=== PATIENT | male | born 1965 | race Caucasian/White ===

== ENCOUNTER 2022-06-10 20:12 | Inpatient (IN) | payer MEDICAID, SELFPAY ==
[2022-06-10 20:27] VITALS: BMI 42.0
[2022-06-10 20:34] VITALS: BP 107/80; PULSE 120; RESP 23; TEMP 36.6; O2SAT 95
--- NOTE | 2022-06-10 20:53 | ECG_ITS ---
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 Measurements Intervals [place] Rate: 120 P: [place]: QRS: 11 QRSD: 96 T: 28 QT: 349 QTc: 494 Interpretive Statements ATRIAL FIBRILLATION WITH RAPID VENTRICULAR RESPONSE POSSIBLE ANTERIOR MYOCARDIAL INFARCTION , PROBABLY OLD [30 ms Q WAVE IN V3/V4, OR R < 0.2 mV IN V4] ABNORMAL RHYTHM ECG No previous ECG available for comparison Electronically Signed On 06-11-2022 8:54:05 CDT by Vic Thakur M.D. [email or web address] olive branch [email or web address] Corporationlouis stokes [facility].PreciouStatus/store/NU/[id number] donovan
--- NOTE | 2022-06-10 20:55 | XRR_ITS ---
PROCEDURE INFORMATION: Exam: XR Chest Exam date and time: 06/10/2022 9:00 PM Age: 56 years old Clinical indication: Shortness of breath; Additional info: Sobg TECHNIQUE: Imaging protocol: Radiologic exam of the chest. Views: 1 view. COMPARISON: No relevant prior studies available. FINDINGS: Lungs: Mild interstitial pulmonary edema with compressive atelectasis in the mid and lower lungs, worse on the right. Pleural spaces: Large right and small left pleural effusions. No pneumothorax. Heart/Mediastinum: Cardiac silhouette is moderately enlarged. Mediastinal contours are unremarkable. Bones/joints: Unremarkable for age. XR/XR chest 1V portable [id number] IMPRESSION: 1. Mild interstitial pulmonary edema with compressive atelectasis in the mid and lower lungs, worse on the right. 2. Large right and small left pleural effusions. 3. Incidental/nonacute findings are listed in the report.
--- NOTE | 2022-06-10 21:02 | ED_ITS ---
HPI - General Adult General: Chief complaint: General Medical Stated complaint: sob Time Seen by Provider: 06/10/22 20:51 Source: patient Mode of arrival: ambulatory Limitations: no limitations History of Present Illness: 56-year-old male who was recently diagnosed with congestive heart failure he states he just moved down here from [place] he was admitted there discharged on Wednesday and then moved here. He is on Lasix he believes 20 or 40 twice a day he states he had increasing shortness of br eath. He is short of breath here. Denies any chest pain or fever. He denies any vomiting states is much worse with exertion. He states he has had fluid building up on his legs. [facility] ED PFSH: Medical History (Updated 06/10/22 @ 22:34 by Diogenes Lopez MD) CHF (congestive heart failure) Social History (Updated 06/10/22 @ 21:06 by Diogenes Lopez MD) Substance/Drug Use: never Physical Exam Const: COMMON NORMALS: patient oriented x3 GENERAL APPEARANCE: in distress HENMT: COMMON NORMALS: normocephalic and atraumatic HEAD & SCALP: normocephalic and atraumatic Eye: COMMON NORMALS: Equal, round and reactive pupils present and EOMs intact bilaterally PUPIL: Yes Equal, round and reactive pupils present Neck/C-Spine: COMMON NORMALS: full ROM and supple Chest: COMMONS NORMALS: normal inspection of the chest and normal palpation of entire chest wall Resp: COMMON NORMALS: No retractions and No use of accessory muscles AUSCULTATION: rales Cardio: COMMON NORMALS: regular rate, regular rhythm and No murmurs present (Cardio) RATE: regular rate RHYTHM: regular rhythm GI: COMMON NORMALS: Normal to inspection, nondistended, normoactive bowel sounds present, Soft to palpation, non-tender and no masses PALPATION: Yes Soft to palpation Extremity: NARRATIVE EXTREMITY EXAM: 2+ edema Neuro: COMMON NORMALS: patient oriented x3, moves all extremities and no focal motor deficits Psych: COMMON NORMALS: mental status grossly normal, Normal thought process p resent and cooperative THOUGHT PROCESS: Normal thought process present Skin: COMMON NORMALS: no rashes or lesions noted and no wounds GENERAL SKIN EXAM: no rashes or lesions noted Course Vital Signs: Vital signs: Vital Signs Temperature 97.9 F 06/10/22 20:34 Pulse Rate 120 H 06/10/22 20:34 Respiratory Rate 23 H 06/10/22 20:34 Blood Pressure 107/80 06/10/22 20:34 Pulse Oximetry 95 06/10/22 20:34 Oxygen Delivery Me thod 06/10/22 20:34 Oxygen Flow Rate 2 06/10/22 20:34 MDM - General Adult Medical Decision Making Patient presents here with congestive heart failure exacerbation. He just drove here from [place] he did not take his Lasix on the Lasix he did not want to stop and urinate so he has been noncompliant he does have edema along with pulmonary congestion CT angio shows no signs of PE placement was placed on BiPAP I spoke to the hospitalist and will admit at this time. Lab Data : 06/10/22 21:05 06/10/22 21:05 Radiology Impressions Chest X-Ray 06/10/22 20:55 IMPRESSION: 1. Mild interstitial pulmonary edema with compressive atelectasis in the mid and lower lungs, worse on the right. 2. Large right and small left pleural effusions. 3. Incidental/nonacute findings are listed in the report. Chest CTA 06/10/22 21:50 IMPRESSION: 1. Fullness in the pulmonary vasculature suggesting volume overload in the lungs. 2. Large right and moderate left pleural effusions. 3. No evidence for pulmonary embolism. 4. Findings in the visualized liver suspicious for cirrhosis. 5. Small pericardial effusion. 6. Incidental/nonacute findings are listed in the report. Laboratory Results WBC 8.5 10^3/uL (4.0-10.0) 06/10/22 21:05 RBC 5.09 10^6/uL (4.1-5.3) 06/10/22 21:05 Hgb 12.3 g/dL (11.7-16.6) 06/10/22 21:05 Hct 41.4 % (42.0-52.0) L 06/10/22 21:05 MCV 81.3 fl (80-94) 06/10/22 21:05 MCH 24.2 pg (28.0-34.0) L 06/10/22 21:05 MCHC 29.7 g/dL (30.0-36.0) L 06/10/22 21:05 RDW 19.5 % (12.1-15.1) H 06/10/22 21:05 Plt Count 259 10^3/cmm (130-400) 06/10/22 21:05 MPV 12.0 fL (7.4-10.4) H 06/10/22 21:05 Neut % (Auto) 73.6 % 06/10/22 21:05 Lymph % (Auto) 10.1 % 06/10/22 21:05 Harmon % (Auto) 14.1 % 06/10/22 21:05 Eos % (Auto) 1.1 % 06/10/22 21:05 Baso % (Auto) 0.7 % 06/10/22 21:05 Neut # (Auto) 6.25 10^3/uL (1.8-7.7) 06/10/22 21:05 Lymph # (Auto) 0.9 10^3/uL (0.8-4.8) 06/10/22 21:05 Harmon # (Auto) 1.2 10^3/uL (0.2-0.9) H 06/10/22 21:05 Eos # (Auto) 0.1 10^3/uL (0.0-0.8) 06/10/22 21:05 Baso # (Auto) 0.1 10^3/uL (0.0-0.1) 06/10/22 21:05 Nucleated RBC % (auto) 0 % 06/10/22 21:05 Nucleated RBCs # 0.0 /100WBC 06/10/22 21:05 D-Dimer 5.24 ug/mIFEU (0-0.59) H 06/10/22 21:05 Sodium 138 mmol/L (136-145) 06/10/22 21:05 Potassium 3.8 mmol/L (3.5-5.1) 06/10/22 21:05 Chloride 96 mmol/L (98-107) L 06/10/22 21:05 Carbon Dioxide 31 mmol/L (22-29) H 06/10/22 21:05 Anion Gap 14.8 (5-19) 06/10/22 21:05 BUN 8 mg/dL (6-20) 06/10/22 21:05 Creatinine 0.7 mg/dL (0.7-1.2) 06/10/22 21:05 GFR Calculation 117.5 mL/min (90-130) 06/10/22 21:05 Glucose 99 mg/dL (65-115) 06/10/22 21:05 Calculated Osmolality 284 mOsm/kg (285-295) L 06/10/22 21:05 Calcium 9.1 mg/dL (8.5-10.5) 06/10/22 21:05 Total Bilirubin 0.8 mg/dL (0.15-1.2) 06/10/22 21:05 AST 15 U/L (0-40) 06/10/22 21:05 ALT 13 U/L (0-41) 06/10/22 21:05 Alkaline Phosphatase 150 U/L (40-130) H 06/10/22 21:05 Troponin T Baseline 34 ng/L (0-15) H 06/10/22 21:05 NT-Pro-B Natriuret Pep 4413 pg/mL (0-125) H 06/10/22 21:05 Total Protein 6.4 g/dL (6.6-8.7) L 06/10/22 21:05 Albumin 3.6 g/dL (3.5-5.2) 06/10/22 21:05 Globulin 2.8 g/dL (1.3-4.6) 06/10/22 21:05 EKG Data EKG 1: I personally reviewed and interpreted this EKG as follows: EKG interpretation date: 06/10/22 EKG interpretation time: 21:44 Interpretation: sinus tach hr [address] or t wave abnormalities qrs 109 qtc 411 Computer generated interpretation: Chest X-Ray 06/10/22 20:55 IMPRESSION: 1. Mild interstitial pulmonary edema with compressive atelectasis in the mid and lower lungs, worse on the right. 2. Large right and small left pleural effusions. 3. Incidental/nonacute findings are listed in the report. Chest CTA 06/10/22 21:50 IMPRESSION: 1. Fullness in the pulmonary vasculature suggesting volume overload in the lungs. 2. Large right and moderate left pleural effusions. 3. No evidence for pulmonary embolism. 4. Findings in the visualized liver suspicious for cirrhosis. 5. Small pericardial effusion. 6. Incidental/nonacute findings are listed in the report. Discharge Plan Discharge Patient Disposition: Admitted As Inpatient Clinical Impression: Acute exacerbation of CHF (congestive heart failure) Coding Level of Care Code ED Vault Person for Chg Fwd Exam Comprehensive
[2022-06-10] MEDS: FUROsemide 10 mg/mL SDV 10mL 60 MG IVP (21:05)
[2022-06-10 21:10] LABS: Basophils # 0.1 10^3/uL (0.0-0.1); Basophils % 0.7 %; Eosinophils # 0.1 10^3/uL (0.0-0.8); Eosinophils % 1.1 %; Hematocrit 41.4 % (42.0-52.0); Hemoglobin 12.3 g/dL (11.7-16.6); Lymphocytes # 0.9 10^3/uL (0.8-4.8); Lymphocytes % 10.1 %; Mean Corpuscular HGB Conc 29.7 g/dL (30.0-36.0); Mean Corpuscular Hemoglobin 24.2 pg (28.0-34.0); Mean Corpuscular Volume 81.3 fl (80-94); Monocytes # 1.2 10^3/uL (0.2-0.9); Monocytes % 14.1 %; Neutrophils # 6.25 10^3/uL (1.8-7.7); Neutrophils % 73.6 %; Nucleated Red Blood Cells % 0 %; Platelet Count 259 10^3/cmm (130-400); Red Blood Count 5.09 10^6/uL (4.1-5.3); Red Cell Distribution Width 19.5 % (12.1-15.1); White Blood Count 8.5 10^3/uL (4.0-10.0)
[2022-06-10 21:37] LABS: Troponin(5th) Baseline 34 ng/L (0-15)
--- NOTE | 2022-06-10 21:44 | ECG_ITS ---
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 Measurements Intervals [place] Rate: 110 P: 14 DE: 193 QRS: 15 QRSD: 109 T: 27 QT: 346 QTc: 469 Interpretive Statements SINUS TACHYCARDIA ABNORMAL RHYTHM ECG Compared to ECG 06/10/2022 20:53:41 Atrial fibrillation no longer present Myocardial infarct finding no longer present Electronically Signed On 06-11-2022 8:52:04 CDT by Vic Thakur M.D. [id number] f
[2022-06-10 21:45] LABS: Alanine Aminotransferase 13 U/L (0-41); Albumin Level 3.6 g/dL (3.5-5.2); Alkaline Phosphatase 150 U/L (40-130); Anion Gap 14.8 (5-19); Aspartate Amino Transferase 15 U/L (0-40); Blood Urea Nitrogen 8 mg/dL (6-20); Calcium 9.1 mg/dL (8.5-10.5); Carbon Dioxide 31 mmol/L (22-29); Chloride 96 mmol/L (98-107); Globulin 2.8 g/dL (1.3-4.6); Glomerular Filtration Rate 117.5 mL/min (90-130); Glucose 99 mg/dL (65-115); NT Pro B Type Natriuretic Pept 4413 pg/mL (0-125); Osmolality Calculated 284 mOsm/kg (285-295); Potassium 3.8 mmol/L (3.5-5.1); Sodium 138 mmol/L (136-145); Total Bilirubin 0.8 mg/dL (0.15-1.2); Total Protein 6.4 g/dL (6.6-8.7)
[2022-06-10 21:48] LABS: D Dimer 5.24 ug/mIFEU (0-0.59)
--- NOTE | 2022-06-10 21:50 | CTR_ITS ---
PROCEDURE INFORMATION: Exam: CTA Chest With Contrast Exam date and time: 06/10/2022 10:02 PM Age: 56 years old Clinical indication: Shortness of breath; Patient HX: Shob, leg swelling; Additional info: SOB TECHNIQUE: Imaging protocol: Computed tomographic angiography of the chest with contrast. 3D rendering (Not supervised by radiologist): MIP and/or 3D reconstructed images were created by the technologist. Radiation optimization: All CT scans at this facility use at least one of these dose optimization techniques: automated exposure control; mA and/or kV adjustment per patient size (includes targeted exams where dose is matched to clinical indication); or iterative reconstruction. Contrast material: OMNI 350; Contrast volume: 95 ml; Contrast route: INTRAVENOUS (IV); COMPARISON: CR (CHEST, ) 06/10/2022 9:00 PM RADIATION DOSE METRICS: Total DLP (mGy-cm): 513.98 FINDINGS: Pulmonary arteries: Fullness in the pulmonary vasculature suggesting volume overload in the lungs. No filling defects in the pulmonary arteries to suggest pulmonary embolism. Aorta: No evidence for aortic aneurysm. Evaluation for aortic dissection is limited due to the phase of contrast-enhancement. Other arteries: Mild atherosclerotic changes in the visualized arteries. Trachea: Tracheobronchial structures are patent. Lungs: No pulmonary parenchymal nodules or masses. Pleural spaces: Large right and moderate left pleural effusions. No pneumothorax. Heart: Moderate enlargement of the heart. Small pericardial effusion. Esophagus: The esophagus is unremarkable. Lymph nodes: Enlarged axillary lymph nodes bilaterally measuring up to 1.6 cm in short axis on the right and 1.3 cm in short axis on the left (series 6, images 94 and 125). Liver: Nodular contour of the visualized liver. Pancreas: The visualized pancreas is unremarkable. No pancreatic ductal dilatation. Spleen: The visualized spleen is unremarkable. Adrenal glands: The visualized right and left adrenal glands are unremarkable. Bones/joints: Multiple old rib fractures bilaterally. Multilevel degenerative changes of varying severity in the visualized spine. Old, severe compression deformity of T3. Mild retropulsion of bone at T3 with approximate 10% spinal canal stenosis. Soft tissues: Moderate body wall edema. CT/CT angio chest PE protcl [id number] IMPRESSION: 1. Fullness in the pulmonary vasculature suggesting volume overload in the lungs. 2. Large right and moderate left pleural effusions. 3. No evidence for pulmonary embolism. 4. Findings in the visualized liver suspicious for cirrhosis. 5. Small pericardial effusion. 6. Incidental/nonacute findings are listed in the report.
[2022-06-10] MEDS: iohexol 350 mg/mL 100 mL Btl IV (21:57)
[2022-06-10 22:31] VITALS: PULSE 101; RESP 10; O2SAT 96
[2022-06-10 22:36] LABS: ABG PCO2 44.8 mmHg (35-45); ABG PH Result 7.47 (7.35-7.45); Base Excess ABG 7.8 mmol/L (-2.0-2.0); Blood Gas Allen Test Pos; Blood Gas Sample Site Radial, right; Blood Gas Sample Type Arterial; HCO3 ABG 32.5 mmol/L (22-26); Oxygen Device BIPAP
[2022-06-10 23:05] VITALS: BP 96/68; PULSE 100; RESP 18; TEMP 36.8; O2SAT 98
[2022-06-10 23:11] VITALS: BP 111/68; PULSE 129; RESP 18; O2SAT 94
--- NOTE | 2022-06-10 23:12 | PM.HP ---
Providers/Chief Complaint Chief Complaint: sob History of Present Illness Jonah Coffman is a 56 year old male with past medical history of HFrEF, smoking, COVID-19 , remote history of methamphetamine use Came in with chief complaint of worsening shortness of breath, orthopnea ,PND, worsening bilateral lower extremity swelling, started since yesterday, he has missed his Lasix in last few days as he was traveling from [place] to [facility]. Patient currently denies any chest pain, fever cough, nausea vomiting headache, abdominal pain. patient has known history of recently diagnosed heart failure with reduced ejection fraction, initially he was admitted in [facility] according to his daughter he has been in and out of the hospital for the last 1 month for decompensated heart failure pneumonia and sepsis management. Upon arrival in the ER he was found to be in A. fib with RVR received Cardizem 15 mg IV one-time dose.Patient do not carry any prior history of A. fib. He was worked up for above-mentioned complaint: Pertinent imaging studies: CTA chest: Bilateral pleural effusion, right large, moderate left effusion.Liver: Nodular contour.No evidence for pulmonary embolism. EKG: A. fib with RVR Pertinent labs: WBC: 8.5 , H&H: 12/41 , plt : 259 , serum sodium 138 , serum potassium 3.8 , BUN serum creatinine ; 8/0.7 , D-dimer 5.24, proBNP 4413 Troponin: 34-29 Review of Systems General: Reports: 10 or more systems reviewed and unremarkable except in HPI and below Const: Denies: fever(s), chills, body aches, change in appetite or diaphoresis Card: Reports: edema, swelling of feet/ankles, dyspnea on exertion and orthopnea; Denies: palpitations or leg pain with exertion Resp: Reports: dyspnea; Denies: productive cough, wheezing or pain on inspiration GI: Denies: abdominal pain, nausea, vomiting, diarrhea or constipation : Denies: flank pain or difficulty urinating Musc: Denies: back pain, extremity pain or extremity swelling Neuro: Denies: headache(s), difficulty walking or confusion Medications/Allergies Allergies Allergy/AdvReac Type Severity Reaction Status Date / Time No Known Allergies Allergy Verified 06/11/22 00:50 PFSH Acute PFSH: Medical History (Updated 06/10/22 @ 23:15 by Jas Del Rosario MD) CHF (congestive heart failure) Social History (Updated 06/10/22 @ 21:06 by Diogenes Lopez MD) Substance/Drug Use: never Vitals/I&O/Wt Last Vital Signs Temp 97.9 F 06/10/22 20:34 Pulse 120 H 06/10/22 20:34 Resp 23 H 06/10/22 20:34 BP 107/80 06/10/22 20:34 Pulse Ox 95 06/10/22 20:34 O2 Del Method 06/10/22 20:34 O2 Flow Rate 2 06/10/22 20:34 Weight last 48 hrs Weight 129.274 kg Physical Exam Const: COMMON NORMALS: patient oriented x3 HENMT: COMMON NORMALS: normocephalic and atraumatic HEAD & SCALP: normocephalic and atraumatic EXTERNAL EAR: Yes external ears normal Resp: EFFORT & INSPECTION: Yes symmetric chest movement AUSCULTATION: clear to auscultation bilaterally OTHER: Diminished air entry B/L , predominantly at bases Cardio: COMMON NORMALS: regular rate, regular rhythm, S1 normal heart sound present, S2 normal heart sound present, No gallops present (Cardio), No murmurs present (Cardio), No rub (Cardio) and Peripheral pulses 2+ throughout RATE: regular rate RHYTHM: regular rhythm HEART SOUNDS: S1 normal heart sound present and S2 normal heart sound present PERIPHERAL PULSES: Peripheral pulses 2+ throughout GI: COMMON NORMALS: Normal to inspection, nondistended, normoactive bowel sounds present, Soft to palpation, non-tender, No hepatosplenomegaly present and no masses AUSCULTATION: Yes normoactive bowel sounds PALPATION: Yes Soft to palpation and Yes No hepatosplenomegaly present RECTAL EXAM: Yes deferred Extremity: NARRATIVE EXTREMITY EXAM: Bilateral lower extremity 2+ pitting edema, bilateral lower extremity redness Neuro: COMMON NORMALS: patient oriented x3 Data : 06/11/22 03:03 06/11/22 03:03 A&P Assessment and plan (1) Acute exacerbation of CHF (congestive heart failure): (2) Atrial fibrillation with RVR: (3) Pleural effusion: Plan 56 year old male with past medical history of HFrEF, smoking, remote history of methamphetamine use Came in with chief complaint of worsening shortness of breath, orthopnea ,PND, worsening bilateral lower extremity swelling, started since yesterday. Assessment: Decompensated HFrEF Newly diagnosed A. fib Possible cardiac cirrhosis Plan: Follow-up 2D echo Lisinopril 5 mg p.o. daily Spironolactone 12.5 mg p.o. daily Continue Lasix 80 mg IV twice daily Monitor intake output charting Monitor daily weight k>4, mg>2 DuoNebs Scheduled for a.m. thoracentesis Hold night dose of Lovenox, thereafter we will continue with therapeutic anticoagulation with Lovenox, Continue Cardizem CODE STATUS: Full code DVT prophylaxis: On Lovenox Attestations Medical Necessity Statement*: Patient needs to in-hospital management of decompensated heart failure.Anticipated length of stay greater than 2 midnights. Time Spent in Patient Care: Greater than 35 minutes (>than 50% of time spent in counselling and/or direct pt care on unit). Coding Level of Care Code Acute Ring Making Machine Operator for Sarmadg Fwd Exam Detailed Diagnoses Acute exacerbation of CHF (congestive heart failure) I50.9 Atrial fibrillation with RVR I48.91 Pleural effusion J90
[2022-06-10 23:48] LABS: Troponin 5 2HR 29.92 ng/L (0-15)
[2022-06-10 23:49] LABS: Troponin 5 2HR Delta -4.08 ABS# (0-10)
[2022-06-11] VITALS (19 sets, daily range): BP systolic 92–115; BP diastolic 58–74; PULSE 83–153; RESP 10–23; TEMP 36.7–36.8; O2SAT 90–100; BMI 42.0
--- NOTE | 2022-06-11 00:14 | US_ITS ---
WS: [id number] ULTRASOUND-GUIDED THORACENTESIS CLINICAL INFORMATION: b/l pleural effusion COMPARISON: None. PROCEDURE: Informed consent: The risks, benefits, and alternatives of the procedure were discussed with the thais ent. Verbal and written consent was obtained. Timeout: A timeout was performed to confirm the correct patient, procedure, and site. Site: RIGHT chest Preparation: A suitable skin site was identified. The patient was prepped and draped in usual sterile fashion. Lidocaine 1% was used for local anesthesia. Catheter: 4 Uzbek One-Step catheter. Fluid Volume: 1500 ml Color: Clear yellow Discarded safely. Sent to the laboratory for analysis. Complications: None. / thoracentesis [id number] IMPRESSION: Uncomplicated ultrasound-guided thoracentesis.
--- NOTE | 2022-06-11 00:46 | PC.NURSE ---
Hospitalist in house gave verbal orders to hold lovenox first dose because of thoracentesis scheduled for the morning.
[2022-06-11] MEDS: dilTIAZem 30 mg Tablet PO ×2 (01:10→06:48)
[2022-06-11] MEDS: levalbuterol 1.25 mg/3 mL Neb INHALATION ×4 (02:53→20:37)
[2022-06-11] MEDS: ipratropium 0.5 mg/2.5 mL Neb INHALATION ×4 (02:53→20:37)
--- NOTE | 2022-06-11 03:14 | ECG_ITS ---
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 Measurements Intervals [place] Rate: 127 P: [place]: QRS: 73 QRSD: 102 T: 28 QT: 332 QTc: 483 Interpretive Statements ATRIAL FLUTTER/sinus TACHYCARDIA WITH RAPID VENTRICULAR RESPONSE LOW QRS VOLTAGE IN EXTREMITY LEADS [QRS DEFLECTION < 0.5 mV IN LIMB LEADS] NONSPECIFIC T-WAVE ABNORMALITY ABNORMAL RHYTHM ECG Compared to ECG 06/10/2022 21:44:59 Low QRS voltage now present T-wave abnormality now present Sinus tachycardia no longer present Electronically Signed On 06-11-2022 20:41:53 CDT by Mimi Hess M.D. [id number]
[2022-06-11 03:20] LABS: Basophils # 0.1 10^3/uL (0.0-0.1); Basophils % 0.7 %; Eosinophils # 0.1 10^3/uL (0.0-0.8); Eosinophils % 0.7 %; Hematocrit 36.4 % (42.0-52.0); Lymphocytes # 0.9 10^3/uL (0.8-4.8); Lymphocytes % 12.8 %; Mean Corpuscular HGB Conc 30.2 g/dL (30.0-36.0); Mean Corpuscular Hemoglobin 24.2 pg (28.0-34.0); Mean Corpuscular Volume 80.2 fl (80-94); Mean Platelet Volume 11.7 fL (7.4-10.4); Monocytes # 1.2 10^3/uL (0.2-0.9); Monocytes % 16.5 %; Neutrophils % 68.9 %; Nucleated Red Blood Cells % 0 %; Platelet Count 232 10^3/cmm (130-400); Red Blood Count 4.54 10^6/uL (4.1-5.3); Red Cell Distribution Width 19.4 % (12.1-15.1); White Blood Count 7.1 10^3/uL (4.0-10.0)
[2022-06-11 03:38] LABS: INR 1.23 (0.8-1.2)
[2022-06-11 03:39] LABS: Partial Thromboplastin Time 31.1 SECONDS (23.9-36.7)
[2022-06-11 03:59] LABS: Troponin 5 6HR 30.63 ng/L (0-15)
[2022-06-11 04:06] LABS: Procalcitonin 0.05 ng/mL (0-0.5); Thyroid Stimulating Hormone 11.32 uIU/mL (0.27-4.20)
[2022-06-11 04:16] LABS: Troponin 5 6HR Delta -3.37 ng/L (0-12)
[2022-06-11 04:18] LABS: Alanine Aminotransferase 10 U/L (0-41); Albumin Level 2.9 g/dL (3.5-5.2); Alkaline Phosphatase 128 U/L (40-130); Anion Gap 16.5 (5-19); Aspartate Amino Transferase 12 U/L (0-40); Blood Urea Nitrogen 8 mg/dL (6-20); Calcium 8.8 mg/dL (8.5-10.5); Carbon Dioxide 28 mmol/L (22-29); Chloride 98 mmol/L (98-107); Globulin 2.5 g/dL (1.3-4.6); Glomerular Filtration Rate 117.5 mL/min (90-130); Glucose 104 mg/dL (65-115); Lactate Dehydrogenase 169 U/L (135-225); Osmolality Calculated 287 mOsm/kg (285-295); Potassium 3.5 mmol/L (3.5-5.1); Sodium 139 mmol/L (136-145); Total Bilirubin 0.9 mg/dL (0.15-1.2); Total Protein 5.4 g/dL (6.6-8.7)
[2022-06-11] MEDS: FUROsemide 10 mg/mL SDV 10mL 80 MG IVP ×2 (06:47→17:44)
[2022-06-11] MEDS: levothyroxine 100 mcg Tablet PO (06:48)
[2022-06-11] MEDS: spironolactone 25 mg Tablet 12.5 MG PO (08:34)
[2022-06-11] MEDS: lisinopril 5 mg Tablet PO (08:35)
--- NOTE | 2022-06-11 10:09 | XR_ITS ---
WS: [id number] CHEST XRAY TECHNIQUE: Portable chest. CLINICAL INFORMATION: Post Thoracentisis COMPARISON: FINDINGS: Heart: Cardiomegaly. Lungs: Post thoracentesis. No pneumothorax. Small residual RIGHT pleural effusion with compressive at electasis. Small LEFT pleural effusion with compressive atelectasis. Bones: Normal visualized bony structures. XR/XR chest 1V portable [id number] IMPRESSION: Post RIGHT thoracentesis. No pneumothorax.
--- NOTE | 2022-06-11 10:19 | P.PN_ITS ---
Subjective Subjective: Patient is stating that his because of cancer and his daughter brought him back to [place] currently is living with his daughter Patient is stating that he was diagnosed with congestive heart failure and he was told that he will be BiPAP dependent He was on CPAP in the past however has not been using it for quite some time Since his discharge she is requiring 2 L of oxygen He has anasarca related to CHF He has history of meth amphetamine drug abuse no recent use as per the patient No active chest pain No history of coronary disease stent or MN Patient is stating that he was told his congestive heart failure is related to sleep apnea and hypertension and drug abuse Vitals/I&O/Wt Last Vital Signs Temp 98.0 F 06/11/22 07:35 Pulse 100 06/11/22 07:50 Resp 16 06/11/22 07:50 BP 115/74 06/11/22 07:35 Pulse Ox 95 06/11/22 07:50 O2 Del Method 06/11/22 07:50 O2 Flow Rate 2 06/11/22 07:50 FiO2 30 06/11/22 02:55 06/10/22 06/11/22 06/11/22 22:59 06:59 14:59 Intake Total 360 / 360 Output Total 1600 / 1600 Balance -1600 / -1600 360 / 360 Weight last 48 hrs Weight 133.311 kg Weight 133.81 kg Weight 129.274 kg Weight 129.274 kg Physical Exam Narrative: Patient was sitting at the bedside eating breakfast Anasarca Bilateral lower extremity swelling with redness erythema Signs of congestive heart failure present Currently on 2 L saturating 95% Awake and alert No conversational dyspnea S1, S2 Abdomen is distended, visceral obesity, no active signs of cellulitis There is mild erythema around umbilicus however no active signs of cellulitis Cushingoid appearance Urinary Catheter Management: [place]: Cath Placed During This Visit: yes Urinary Catheter Date of Insertion: 06/10/22 Urinary Catheter Time of Insertion: 23:16 Data : 06/11/22 03:03 06/11/22 03:03 A&P Assessment and plan (1) Pleural effusion: (2) Atrial fibrillation with RVR: (3) Acute exacerbation of CHF (congestive heart failure): (4) CHF (congestive heart failure): Plan We will obtain records from [facility] Patient is stating that he was diagnosed with congestive heart failure EF is unknown Will follow-up with echo Acute CHF exacerbation EF is unknown continue diuresis Likely related to methamphetamine abuse, hypertension and sleep apnea Chronic hypoxia patient is requiring 2 L for last 2 months since CHF exacerbation Sleep apnea patient was told that he is BiPAP dependent he has used CPAP in the past Abnormal TSH we will request free T4 level to rule out hypothyroidism Pleural effusion related to CHF 1.5 L removed manager of photography updated We will request PT evaluation Patient does not want to go to penitentiary Currently with his daughter Cardiac diet DVT prophylaxis on board Full code Attestations Medical Necessity Statement*: Continue medical management Time Spent in Patient Care: 40 Coding Level of Care Code Acute Lieutenant/Deputy for Sarmadg Fwcorinne Diagnoses Pleural effusion J90 Atrial fibrillation with RVR I48.91 Acute exacerbation of CHF (congestive heart failure) I50.9 CHF (congestive heart failure) I50.9
--- NOTE | 2022-06-11 10:27 | USCV_ITS ---
Jonah Coffman Age: 56 Gender: M : 1965 Exam Date: 06/11/2022 10:53 Ordering Phys: Balta Saravia MD Technologist: Romero Hernandez [place] [facility] [place] Indication: bilat swelling PROCEDURES: The venous duplex Doppler examination of both lower extremities was performed in the standard fashion. The following venous structures were evaluated: common femoral vein, profunda vein, proximal portion of the greater saphenous vein, superficial femoral vein, and the popliteal vein. In addition, the posterior tibial and peroneal trunk were evaluated. FINDINGS: Normal 2-D Doppler and augmentation and compressibility throughout the lower extremity venous structures. Additional imaging through the proximal calf veins also reveals no thrombus. Limited evaluation of the greater saphenous vein is patent with no thrombus. CONCLUSIONS No DVT bilateral lower extremities. Dr. Charo Werner DO (Electronically Signed) Final Date: 11 June 2022 13:17 S
[2022-06-11] MEDS: perflutren protein-a microsphr 0.22 mg/mL SDV 3 mL IV (10:45)
[2022-06-11 11:08] LABS: Free T4 Free Thyroxine 0.95 ng/dL (0.82-1.77)
--- NOTE | 2022-06-11 11:14 | PC.CHAP ---
Pastoral Care Encounter/Spiritual Assessment Type of Contact [] Declined fleece tier visit [] Patient/Family/Request visit [] Outpatient visit [] Follow-up visit [] Physician referral [] Code/Alert [x] Routine visit [] Staff referral [] Actively dying [] Patient sleeping [] Family support [] [] Out of room [] Palliative care [] [x] Receiving care in room [] Pre-surgical visit [] Trauma [x] Long length of stay [] ICU visit [] Other: Relational/Emotional Strength [x] Patient feels connected with others/family/visitors/staff [] Distress [] Loneliness/isolation [] Abandonment Spirituality of Patient [x] Person of [place] [] Attends Cheondoism of their [place] [x] Believes in Prayer [] Reads Bible or Hinduism materials [] There are Spiritual issues to be addressed Rolling Mill Operator Interventions [x] Prayer [x] Active listening [x] Non-anxious presence [x] Spiritual/emotional support [] Crisis/trauma care [x] Spiritual counseling [] Bereavement support [] Provided bereavement packet [] Provided Bible/devotional materials [] Provided toy/stuffed animal, coloring book to patient or family member [] Provided Communion [] Anointing/[place] [] Salvation [x] Completed spiritual assessment [] Other: Impact on Illness or Injury [] Angry [] Fearful [x] Anxious [] Often cries [] Exhaustion [x] Unable to work [] Unable to attend moravian [] Unable to walk/stand [] Unable to read [] Unable to drive [] Unable to eat/drink [] Unable to sleep [] Unable to be with family [] Patient intubated [] Other: Summary dealing with heart and other health problems has a good attitude feeling better well go home at some point Time spent with patient 10 mins
[2022-06-11] MEDS: enoxaparin 120 mg/0.8 mL Syringe SUBCUT (11:23)
[2022-06-11 12:26] LABS: Cyto Order Verification No Order; LDH Pleural Fluid 71 U/L; Pleural Fluid Albumin 1.2 g/dL
[2022-06-11] MEDS: digoxin 250 mcg/ml INJ 2 mL IVP (16:24)
--- NOTE | 2022-06-11 16:39 | ECG_ITS ---
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 Measurements Intervals [place] Rate: 134 P: AR: QRS: 36 QRSD: 101 T: 22 QT: 355 QTc: 532 Interpretive Statements Possible sinus tachycardia with PACs LOW QRS VOLTAGE IN PRECORDIAL LEADS [QRS DEFLECTION < 1.0 mV IN CHEST LEADS] ABNORMAL RHYTHM ECG Compared to ECG 06/11/2022 03:14:02 Atrial flutter no longer present T-wave abnormality no longer present Electronically Signed On 06-11-2022 20:38:13 CDT by Mimi Hess M.D. [id number]
--- NOTE | 2022-06-11 17:00 | PC.NURSE ---
Awaiting pharmacy to send the amiodarone bolus to the floor at this time. Called and soke to Jluis who is making it.
--- NOTE | 2022-06-11 18:54 | PC.NURSE ---
Report given to Patti LYONS at this time
--- NOTE | 2022-06-11 23:08 | USCV_ITS ---
Jonah Coffman Age: 56 Gender: M : 1965 Exam Date: 06/11/2022 09:20 Ordering Phys: Jas Del Rsoario MD Technologist: Exam [place] [facility] [place]ication: SOB BP: 134 / 74 HR: 93 Rhythm: Sinus Technical Quality: Adequate MEASUREMENTS (Male / Female) Normal Values 2D ECHO LV Diastolic Diameter PLAX 6.3 cm 4.2 - 5.9 / 3.9 - 5.3 cm LV Systolic Diameter PLAX 4.7 cm IVS Diastolic Thickness 1.3 cm 0.6 - 1.0 / 0.6 - 0.9 cm IVS Systolic Thickness 1.7 cm LVPW Diastolic Thickness 1.3 cm 0.6 - 1.0 / 0.6 - 0.9 cm LVPW Systolic Thickness 1.4 cm LVOT Diameter 2.1 cm LV Ejection Fraction 2D Teich 49.5 % LV Ejection Fraction MOD 2C 32.6 % LV Ejection Fraction 2C AL 33.5 % LA Diameter 4.8 cm M-MODE Aortic Annulus Diameter 3.3 cm LA Ao Ratio MM 1.4 MV E Point Septal Separation 1.8 cm DOPPLER AV Peak Velocity 107.0 cm/s LVOT Peak Velocity 69.0 cm/s AV Area Cont Eq vti 2.3 cm squared AV Area Cont Eq pk 2.2 cm squared MV Area PHT 4.9 cm squared Mitral E to A Ratio 2.1 MV E' Velocity 56.5 cm/s Mitral E to MV E' Ratio 6.7 Mitral E to LV E' Lateral Ratio 7.8 Mitral E to LV E' Septal Ratio 5.8 TR Peak Velocity 281.7 cm/s TR Peak Gradient 31.7 mmHg TV Peak E Velocity 111.0 cm/s Right Atrial Pressure 3.0 mmHg Pulmonary Artery Systolic Pressu 34.7 mmHg PV Peak Velocity 94.0 cm/s RV Acceleration Time 0.1 s FINDINGS Left Ventricle Severe diffuse hypokinesis of the left ventricle with an ejection fraction of around 33%. Mildly dilated LV cavity Right Ventricle Mildly increased right ventricular size. Possibly normal ejection fraction Right Atrium Mildly increased right atrial size. Left Atrium Appears to be mildly dilated Mitral Valve Trace mitral valve regurgitation. Aortic Valve No gross abnormalities noted Tricuspid Valve Mild tricuspid valve regurgitation. Pulmonic Valve Pulmonic valve not well visualized. Pericardium No pericardial effusion. Aorta Normal aortic annulus size. IVC Inferior vena cava not visualized. CONCLUSIONS Severe diffuse hypokinesis of the left ventricle with an ejection fraction of around 33%. Mild four-chamber dilatation. Trace mitral valve regurgitation. Mild tricuspid valve regurgitation. There is no pericardial effusion. Echo contrast was used for the LV function analysis No similar previous studies are available for comparison Dr Mimi Hess MD [facility] (Electronically Signed) Final Date: 12 June 2022 17:00 S
[2022-06-12] VITALS (20 sets, daily range): BP systolic 84–112; BP diastolic 58–80; PULSE 11–118; RESP 14–30; TEMP 36.4–36.6; O2SAT 91–100
[2022-06-12] MEDS: enoxaparin 120 mg/0.8 mL Syringe SUBCUT ×2 (00:46→11:30)
[2022-06-12] MEDS: levalbuterol 1.25 mg/3 mL Neb INHALATION ×4 (02:51→20:36)
[2022-06-12 05:12] LABS: Basophils # 0.1 10^3/uL (0.0-0.1); Basophils % 0.8 %; Eosinophils # 0.1 10^3/uL (0.0-0.8); Eosinophils % 1.2 %; Hematocrit 37.5 % (42.0-52.0); Hemoglobin 11.2 g/dL (11.7-16.6); Lymphocytes # 1.2 10^3/uL (0.8-4.8); Lymphocytes % 16.6 %; Mean Corpuscular HGB Conc 29.9 g/dL (30.0-36.0); Mean Corpuscular Hemoglobin 24.1 pg (28.0-34.0); Mean Corpuscular Volume 80.8 fl (80-94); Mean Platelet Volume 12.1 fL (7.4-10.4); Monocytes # 1.3 10^3/uL (0.2-0.9); Neutrophils # 4.74 10^3/uL (1.8-7.7); Neutrophils % 64.3 %; Nucleated Red Blood Cells % 0 %; Platelet Count 232 10^3/cmm (130-400); Red Blood Count 4.64 10^6/uL (4.1-5.3); Red Cell Distribution Width 19.7 % (12.1-15.1); White Blood Count 7.4 10^3/uL (4.0-10.0)
[2022-06-12 05:43] LABS: Alanine Aminotransferase 11 U/L (0-41); Albumin Level 2.9 g/dL (3.5-5.2); Alkaline Phosphatase 136 U/L (40-130); Anion Gap 13.5 (5-19); Aspartate Amino Transferase 14 U/L (0-40); Blood Urea Nitrogen 13 mg/dL (6-20); Calcium 8.6 mg/dL (8.5-10.5); Carbon Dioxide 27 mmol/L (22-29); Chloride 95 mmol/L (98-107); Creatinine Clr Calc Pharmacy 164.4259; Globulin 2.7 g/dL (1.3-4.6); Glomerular Filtration Rate 117.5 mL/min (90-130); Glucose 124 mg/dL (65-115); Osmolality Calculated 276 mOsm/kg (285-295); Potassium 3.5 mmol/L (3.5-5.1); Sodium 132 mmol/L (136-145); Total Bilirubin 0.6 mg/dL (0.15-1.2); Total Protein 5.6 g/dL (6.6-8.7)
[2022-06-12 05:44] LABS: Free T4 Free Thyroxine 0.92 ng/dL (0.82-1.77); Thyroid Stimulating Hormone 15.25 uIU/mL (0.27-4.20)
[2022-06-12] MEDS: levothyroxine 100 mcg Tablet PO (06:34)
[2022-06-12] MEDS: ipratropium 0.5 mg/2.5 mL Neb INHALATION ×3 (08:45→20:36)
--- NOTE | 2022-06-12 09:13 | PC.NURSE ---
Physician orders: Hold all antihypertensives
[2022-06-12] MEDS: FUROsemide 10 mg/mL SDV 10mL 40 MG IVP (09:36)
--- NOTE | 2022-06-12 10:20 | P.PN_ITS ---
Subjective Subjective: Patient is sitting at the bedside watching television eating breakfast On 2 L Leg swelling has slightly improved He will stay in the hospital for at least next 3 to 4 days considering his congestive heart failure exacerbation A. fib RVR Vitals/I&O/Wt Last Vital Signs Temp 97.7 F 06/12/22 07:44 Pulse 110 H 06/12/22 08:53 Resp 18 06/12/22 08:48 BP 98/68 06/12/22 07:44 Pulse Ox 97 06/12/22 08:48 O2 Del Method 06/12/22 08:48 O2 Flow Rate 2 06/12/22 08:48 FiO2 30 06/12/22 02:55 06/11/22 06/12/22 06/12/22 22:59 06:59 14:59 Intake Total 923 / 1523 1156.24 / 2679.24 Output Total 2200 / 4200 300 / 4500 Balance -1277 / -2677 856.24 / -1820.76 Weight last 48 hrs Weight 134.853 kg Weight 133.311 kg Weight 133.81 kg Weight 129.274 kg Weight 129.274 kg Physical Exam Narrative: Patient is sitting at the bedside Eating breakfast Watching television Anasarca Congestive heart failure Crackles noted on lung auscultation Regular S1-S2 A. fib RVR heart rate in 130s Blood pressure is also on the softer side Currently on 2 L nasal cannula Lower extremity venous congestion No signs of fluid compromise Abdominal scar noted Mild erythema around umbilicus no active signs of cellulitis Urinary Catheter Management: Sutherland: Cath Placed During This Visit: yes Urinary Catheter Date of Insertion: 06/10/22 Urinary Catheter Time of Insertion: 23:16 Data : 06/12/22 04:27 06/12/22 04:27 A&P Assessment and plan (1) Pleural effusion: (2) Atrial fibrillation with RVR: (3) Acute exacerbation of CHF (congestive heart failure): (4) CHF (congestive heart failure): (5) Hypokalemia: Plan Congestive heart failure exacerbation Echo still pending No signs of DVT or PE Continue diuresis Potassium supplemented for hypokalemia Mag normal A. fib RVR Give IV digoxin, start p.o. digoxin tomorrow Continue amiodarone Switch to p.o. amiodarone by tomorrow Chronic hypoxia Currently requiring 2 L of oxygen Required BiPAP overnight Will do overnight pulse ox study, request ABG High D-dimer no signs of PE or DVT Pleural effusion status post thoracentesis, transudative in nature related to CHF Abnormal TSH although free T4 is normal Discontinue levothyroxine Full code Cardiac Continue therapeutic Lovenox for A. fib RVR Attestations Medical Necessity Statement*: Continue medical management Time Spent in Patient Care: 40 Coding Level of Care Code Acute Regional Dedicated Truck Driver for Chg Fwd Diagnoses Pleural effusion J90 Atrial fibrillation with RVR I48.91 Acute exacerbation of CHF (congestive heart failure) I50.9 CHF (congestive heart failure) I50.9 Hypokalemia E87.6
[2022-06-12] MEDS: digoxin 250 mcg/ml INJ 2 mL 500 MCG IVP (10:52)
[2022-06-12 14:33] LABS: ABG PCO2 47.9 mmHg (35-45); ABG PH Result 7.44 (7.35-7.45); Arterial Blood Gas Hematocrit 35.1 % (42-52); Blood Gas Allen Test Pos; Blood Gas Operator Identificat GD; Blood Gas Sample Site Radial, right; Blood Gas Sample Type Arterial; HCO3 ABG 32.2 mmol/L (22-26); Oxygen Device NC; PO2 ABG 83.7 mmHg (80.0-100.0)
[2022-06-12] MEDS: amiodarone 200 mg Tablet 400 MG PO (17:50)
[2022-06-12] MEDS: FUROsemide 10 mg/mL SDV 4mL 40 MG IVP (17:52)
[2022-06-13] VITALS (16 sets, daily range): BP systolic 101–115; BP diastolic 69–75; PULSE 89–101; RESP 14–24; TEMP 36.6–36.9; O2SAT 94–98
[2022-06-13] MEDS: enoxaparin 120 mg/0.8 mL Syringe SUBCUT ×2 (00:21→13:28)
[2022-06-13] MEDS: levalbuterol 1.25 mg/3 mL Neb INHALATION ×4 (02:49→21:25)
[2022-06-13 05:12] LABS: Basophils # 0.1 10^3/uL (0.0-0.1); Basophils % 1.1 %; Eosinophils # 0.1 10^3/uL (0.0-0.8); Hematocrit 35.6 % (42.0-52.0); Hemoglobin 10.7 g/dL (11.7-16.6); Lymphocytes # 1.2 10^3/uL (0.8-4.8); Lymphocytes % 18.9 %; Mean Corpuscular HGB Conc 30.1 g/dL (30.0-36.0); Mean Corpuscular Hemoglobin 24.4 pg (28.0-34.0); Mean Corpuscular Volume 81.3 fl (80-94); Mean Platelet Volume 12.3 fL (7.4-10.4); Monocytes # 1.1 10^3/uL (0.2-0.9); Monocytes % 16.3 %; Neutrophils # 4.03 10^3/uL (1.8-7.7); Neutrophils % 61.4 %; Nucleated Red Blood Cells % 0 %; Platelet Count 219 10^3/cmm (130-400); Red Blood Count 4.38 10^6/uL (4.1-5.3); Red Cell Distribution Width 19.5 % (12.1-15.1); White Blood Count 6.6 10^3/uL (4.0-10.0)
[2022-06-13 05:32] LABS: Alanine Aminotransferase 10 U/L (0-41); Albumin Level 2.8 g/dL (3.5-5.2); Alkaline Phosphatase 137 U/L (40-130); Anion Gap 13.3 (5-19); Aspartate Amino Transferase 13 U/L (0-40); Blood Urea Nitrogen 13 mg/dL (6-20); Calcium 8.5 mg/dL (8.5-10.5); Carbon Dioxide 29 mmol/L (22-29); Chloride 94 mmol/L (98-107); Globulin 2.8 g/dL (1.3-4.6); Glomerular Filtration Rate 117.5 mL/min (90-130); Glucose 140 mg/dL (65-115); Magnesium 1.9 mg/dL (1.7-2.3); Osmolality Calculated 278 mOsm/kg (285-295); Potassium 3.3 mmol/L (3.5-5.1); Sodium 133 mmol/L (136-145); Total Bilirubin 0.5 mg/dL (0.15-1.2); Total Protein 5.6 g/dL (6.6-8.7)
[2022-06-13] MEDS: ipratropium 0.5 mg/2.5 mL Neb INHALATION ×3 (08:11→21:25)
[2022-06-13] MEDS: potassium chloride ER 20 mEq Tablet 40 MEQ PO (08:41)
[2022-06-13] MEDS: digoxin 250 mcg Tablet PO (08:41)
[2022-06-13] MEDS: lisinopril 5 mg Tablet PO (08:41)
[2022-06-13] MEDS: FUROsemide 10 mg/mL SDV 4mL 40 MG IVP ×2 (08:41→17:46)
[2022-06-13] MEDS: amiodarone 200 mg Tablet 400 MG PO ×2 (08:42→17:46)
--- NOTE | 2022-06-13 11:12 | PM.PN ---
Subjective Subjective: Melissa plasencia RVR improved heart rate below 110 Currently on digoxin Blood pressure improved as well Patient is using BiPAP every night Overnight pulse ox study requested He will need angiogram once he is able to lay flat Cardiology consulted Echo shows EF 33 Vitals/I&O/Wt Last Vital Signs Temp 97.8 F 06/13/22 04:00 Pulse 98 06/13/22 08:41 Resp 17 06/13/22 08:00 BP 113/75 06/13/22 07:12 Pulse Ox 95 06/13/22 08:16 O2 Del Method 06/13/22 08:00 O2 Flow Rate 2 06/12/22 20:36 FiO2 30 06/13/22 08:16 06/12/22 06/13/22 06/13/22 22:59 06:59 14:59 Intake Total 601.76 / 2201.76 1570 / 3771.76 840 / 840 Output Total 1280 / 5380 1050 / 1050 Balance 601.76 / -1898.24 290 / -1608.24 -210 / -210 Weight last 48 hrs Weight 159.937 kg Weight 134.853 kg Physical Exam Narrative: Anasarca CHF signs present Bilateral breath sounds with crackles Lower extremity venous stasis dermatitis Awake and alert Currently on 2 L He was asked for breakfast Pleasant and cooperative Abdomen distended Urinary Catheter Management: Sutherland: Cath Placed During This Visit: yes Urinary Catheter Date of Insertion: 06/10/22 Urinary Catheter Time of Insertion: 23:16 Data : 06/13/22 03:50 06/13/22 03:50 A&P Assessment and plan (1) Hypokalemia: (2) Pleural effusion: (3) Atrial fibrillation with RVR: (4) Acute exacerbation of CHF (congestive heart failure): (5) CHF (congestive heart failure): Plan Acute systolic congestive heart failure Anasarca EF 33% Will need coronary angiogram once stable and able to lay flat Continue IV diuresis Melissa plasencia with RVR Currently on therapeutic Lovenox On amiodarone and digoxin Abnormal TSH Free T4 normal Cardiology consulted Status post thoracentesis Transudative pleural effusion Hold spironolactone and lisinopril Cardiac diet Full code Attestations Medical Necessity Statement*: Continue medical management Time Spent in Patient Care: 40 Coding Level of Care Code Acute Power Screwdriver Operator for Chg Fwd Diagnoses Hypokalemia E87.6 Pleural effusion J90 Atrial fibrillation with RVR I48.91 Acute exacerbation of CHF (congestive heart failure) I50.9 CHF (congestive heart failure) I50.9
--- NOTE | 2022-06-13 13:17 | PM.CONSULT ---
Providers/Reason For Consult Consulting Physician/Specialty*: Vic Thakur MD/ Cardiology Reason for Consult*: New onset congestive heart failure Requesting Physician: Dr Saravia Attending Physician: Balta Saravia MD History of Present Illness History of Present Illness Jonah Coffman is a 56 year old male with past medical history of recent COVID, remote history of methamphetamine use presented to the hospital with worsening shortness of breath for about a month. He also has orthopnea and lower extremity edema. He has recently moved from [facility] to [place]. Denies any prior history of heart failure. Echocardiogram shows severely reduced LV systolic function. He was also found to be in A. fib with RVR. Has been on digoxin and amiodarone. Anticoagulated with Lovenox. He is diuresing well. He has started feeling better now. Review of Systems General: Reports: 10 or more systems reviewed and unremarkable except in HPI and below Const: Denies: fever(s), chills, body aches, change in appetite or diaphoresis Card: Reports: edema, swelling of feet/ankles, dyspnea on exertion and orthopnea; Denies: palpitations or leg pain with exertion Resp: Reports: dyspnea; Denies: productive cough, wheezing or pain on inspiration GI: Denies: abdominal pain, nausea, vomiting, diarrhea or constipation : Denies: flank pain or difficulty urinating Musc: Denies: back pain, extremity pain or extremity swelling Neuro: Denies: headache(s), difficulty walking or confusion Medications/Allergies Home Medications Medication Instructions Recorded Confirmed Last Taken Type budesonide-formoterol HFA 80 2 puff inhalation BID 06/11/22 06/11/22 Unknown History mcg-4.5 mcg/actuation aerosol inhaler diltiazem HCl 120 mg 120 mg PO DAILY 06/11/22 06/11/22 Unknown History capsule,extended release 24 hr, controlled furosemide 40 mg tablet 40 mg PO BID 06/11/22 06/11/22 Unknown History hydroxyzine HCl 10 mg tablet 10 mg PO TID PRN Itching 06/11/22 06/11/22 Unknown History levothyroxine 25 mcg tablet 25 mcg PO DAILY 06/11/22 06/11/22 Unknown History Allergies Allergy/AdvReac Type Severity Reaction Status Date / Time gabapentin Allergy Unknown Verified 06/11/22 07:42 pregabalin [From Lyrica] Allergy Unknown Verified 06/11/22 07:42 Current Medications Generic Name Dose Route Start Last Admin Trade Name Freq PRN Reason Stop Dose Admin Amiodarone HCl 400 mg 06/12/22 18:00 06/13/22 08:42 Amiodarone 200 Mg Tablet PO 400 mg BID ADONAY Administration Digoxin 250 mcg 06/13/22 09:00 06/13/22 08:41 Digoxin 250 Mcg Tablet PO 250 mcg DAILY ADONAY Administration Enoxaparin Sodium 120 mg 06/10/22 23:30 06/13/22 00:21 Enoxaparin 120 Mg/0.8 Ml Syringe SUBCUT 120 mg Q12H ADONAY Administration Furosemide 40 mg 06/12/22 18:00 06/13/22 08:41 Furosemide 10 Mg/Ml Sdv 4ml IVP 40 mg BID ADONAY Administration Amiodarone HCl 900 mg/ 518 mls @ 0 mls/hr 06/11/22 16:00 06/12/22 18:26 Dextrose/ IV Miscellaneous IV Infused Supplies .Q0M ADONAY Titration Protocol Per Protocol Ipratropium [place] 0.5 mg 06/11/22 14:00 06/13/22 08:11 Ipratropium 0.5 Mg/2.5 Ml Neb INHALATION 0.5 mg TID.RESP ADONAY Administration Levalbuterol HCl 1.25 mg 06/11/22 02:00 06/13/22 08:11 Levalbuterol 1.25 Mg/3 Ml Neb INHALATION 1.25 mg Q6H.RESP ADONAY Administration Lisinopril 5 mg 06/11/22 09:00 06/13/22 08:41 Lisinopril 5 Mg Tablet PO 5 mg DAILY ADONAY Administration Potassium Chloride 40 meq 06/13/22 07:45 06/13/22 08:42 Potassium Chloride Er 20 Meq Tablet PO Not Given DAILY ADONAY Spironolactone 12.5 mg 06/11/22 09:00 06/11/22 08:34 Spironolactone 25 Mg Tablet PO 12.5 mg DAILY ADONAY Administration PFSH Acute PFSH: Medical History BiPAP (biphasic positive airway pressure) dependence CHF (congestive heart failure) COPD (chronic obstructive pulmonary disease) Sleep apnea Social History Substance/Drug Use: never Vitals/I&O/Wt Last Vital Signs Temp 98.4 F 06/13/22 11:24 Pulse 94 06/13/22 11:24 Resp 16 06/13/22 11:24 BP 115/72 06/13/22 11:24 Pulse Ox 95 06/13/22 11:24 O2 Del Method 06/13/22 08:00 O2 Flow Rate 2 06/12/22 20:36 FiO2 30 06/13/22 08:16 06/12/22 06/13/22 06/13/22 22:59 06:59 14:59 Intake Total 601.76 / 2201.76 1570 / 3771.76 840 / 840 Output Total 1280 / 5380 2200 / 2200 Balance 601.76 / -1898.24 290 / -1608.24 -1360 / -1360 Weight last 48 hrs Weight 297 lb Weight 352 lb 9.6 oz Weight 297 lb 4.8 oz Physical Exam Narrative: GENERAL: Patient is alert, awake and oriented x3. [] HEENT: No cyanosis. No icterus. No pallor. [] HEART: Irregularly irregular, tachycardic LUNGS: Diminished breath sounds ABDOMEN: Soft CENTRAL NERVOUS SYSTEM: Grossly nonfocal. [] EXTREMITIES: Lower extremities with 2+ edema bilaterally. Pulses palpable in the lower extremities, both dorsalis pedis and posterior tibial. [] Urinary Catheter Management: Sutherland: Cath Placed During This Visit: yes Urinary Catheter Date of Insertion: 06/10/22 Urinary Catheter Time of Insertion: 23:16 Data : 06/13/22 03:50 06/13/22 03:50 A&P Assessment and plan (1) Atrial fibrillation with RVR: (2) Pleural effusion: (3) Acute exacerbation of CHF (congestive heart failure): Plan Patient has new onset congestive heart failure. Once able to lay down, we will perform right and left heart cath to rule out CAD as underlying reason for EF reduction. Continue diuresis. Monitor renal function and electrolytes Strict I&O's. Continue anticoagulation with Lovenox. Thank you for involving us with care of this patient. We will continue to follow. Please call with questions. Consult Attestations Medical Necessity Statement: Care expected to cross 2 midnight Coding Level of Care Code Acute Forestry Pilot for Chg Fwd Diagnoses Atrial fibrillation with RVR I48.91 Pleural effusion J90 Acute exacerbation of CHF (congestive heart failure) I50.9
[2022-06-14] VITALS (18 sets, daily range): BP systolic 84–109; BP diastolic 56–72; PULSE 90–108; RESP 14–23; TEMP 36.4–37.1; O2SAT 92–100
[2022-06-14] MEDS: enoxaparin 120 mg/0.8 mL Syringe SUBCUT (00:01)
[2022-06-14] MEDS: levalbuterol 1.25 mg/3 mL Neb INHALATION ×4 (02:30→20:00)
[2022-06-14] MEDS: ipratropium 0.5 mg/2.5 mL Neb INHALATION (08:15)
[2022-06-14] MEDS: FUROsemide 10 mg/mL SDV 4mL 40 MG IVP (09:17)
[2022-06-14] MEDS: potassium chloride ER 20 mEq Tablet 40 MEQ PO (09:18)
[2022-06-14] MEDS: digoxin 250 mcg Tablet PO (09:18)
[2022-06-14] MEDS: amiodarone 200 mg Tablet 400 MG PO ×2 (09:18→17:31)
--- NOTE | 2022-06-14 09:58 | P.PN_ITS ---
Subjective Subjective: Patient is stable. Not able to lay down still Vitals/I&O/Wt Last Vital Signs Temp 97.5 F L 06/14/22 07:30 Pulse 108 H 06/14/22 09:18 Resp 167 H 06/14/22 08:19 BP 84/56 06/14/22 07:30 Pulse Ox 98 06/14/22 08:19 O2 Del Method 06/14/22 08:19 O2 Flow Rate 2 06/14/22 02:31 FiO2 30 06/14/22 08:19 06/13/22 06/14/22 06/14/22 22:59 06:59 14:59 Intake Total 2450 / 3290 Output Total 1200 / 3400 900 / 4300 Balance -1200 / -2560 1550 / -1010 Weight last 48 hrs Weight 300 lb 12.8 oz Weight 297 lb Weight 352 lb 9.6 oz Physical Exam Narrative: GENERAL: Patient is alert, awake and oriented x3. [] HEENT: No cyanosis. No icterus. No pallor. [] HEART: Irregularly irregular, tachycardic LUNGS: Diminished breath sounds ABDOMEN: Soft CENTRAL NERVOUS SYSTEM: Grossly nonfocal. [] EXTREMITIES: Lower extremities with 2+ edema bilaterally. Pulses palpable in the lower extremities, both dorsalis pedis and posterior tibial. [] Urinary Catheter Management: Sutherland: Cath Placed During This Visit: yes Urinary Catheter Date of Insertion: 06/10/22 Urinary Catheter Time of Insertion: 23:16 Data : 06/15/22 04:56 06/15/22 05:50 A&P Assessment and plan (1) Atrial fibrillation with RVR: (2) Pleural effusion: (3) Acute exacerbation of CHF (congestive heart failure): Plan Patient has been diuresing well. Continue IV diuresis. Monitor renal function and electrolytes.Cardiac cath once patient is able to lay down flat. Strict I&O's. Continue anticoagulation with Lovenox. Thank you for involving us with care of this patient. We will continue to follow. Please call with questions. Attestations Medical Necessity Statement*: Care expected to cross 2 midnights. Coding Level of Care Code Acute Office Automation Clerk for Joycelyn Walters Diagnoses Atrial fibrillation with RVR I48.91 Pleural effusion J90 Acute exacerbation of CHF (congestive heart failure) I50.9
--- NOTE | 2022-06-14 10:03 | P.PN_ITS ---
Subjective Subjective: Patient is stating that he has never slept on his back he is anxious about the angiogram No active chest pain, he was eating breakfast Vitals/I&O/Wt Last Vital Signs Temp 97.5 F L 06/14/22 07:30 Pulse 108 H 06/14/22 09:18 Resp 167 H 06/14/22 08:19 BP 84/56 06/14/22 07:30 Pulse Ox 98 06/14/22 08:19 O2 Del Method 06/14/22 08:19 O2 Flow Rate 2 06/14/22 02:31 FiO2 30 06/14/22 08:19 06/13/22 06/14/22 06/14/22 22:59 06:59 14:59 Intake Total 2450 / 3290 580 / 580 Output Total 1200 / 3400 900 / 4300 Balance -1200 / -2560 1550 / -1010 580 / 580 Weight last 48 hrs Weight 136.441 kg Weight 134.717 kg Weight 159.937 kg Physical Exam Narrative: Still showing signs of congestive heart failure Bilateral extremity edema Anasarca Bilateral breath sounds with less crackles as compared to yesterday Awake and alert Eating breakfast EOMI, PERRLA variable S1-S2 Currently on 2 L of oxygen Urinary Catheter Management: Sutherland: Cath Placed During This Visit: yes Urinary Catheter Date of Insertion: 06/10/22 Urinary Catheter Time of Insertion: 23:16 Data : 06/13/22 03:50 06/13/22 03:50 A&P Assessment and plan (1) Pleural effusion: (2) Atrial fibrillation with RVR: (3) Acute exacerbation of CHF (congestive heart failure): (4) Reduced ejection fraction concurrent with and due to acute heart failure: Plan Acute systolic congestive heart failure A. fib RVR Hypokalemia Reduced ejection fraction heart failure exacerbation Patient will need coronary angiogram once he is able to lay flat Anasarca Continue diuresis Congestive heart failure with hyponatremia A. fib continue amiodarone 400 twice daily currently on digoxin p.o. regimen as well spironolactone and lisinopril on hold Full code Cardiac diet Possible coronary angiogram if he is able to lay flat tomorrow He is requiring BiPAP almost every night 2 L of oxygen the daytime Considering active fluid overloaded state he does not do well without BiPAP overnight He does have sleep apnea component Attestations Medical Necessity Statement*: Patient will need coronary angiogram, Time Spent in Patient Care: 40 Coding Level of Care Code Acute Metalizing Supervisor for Chg Fwd Diagnoses Pleural effusion J90 Atrial fibrillation with RVR I48.91 Acute exacerbation of CHF (congestive heart failure) I50.9 Reduced ejection fraction concurrent with and due to acute heart failure I50.21
[2022-06-14] MEDS: enoxaparin 150 mg/mL Syringe 135 MG SUBCUT ×2 (11:33→23:24)
[2022-06-14] MEDS: mupirocin oint 22 gm 1 APPLIC TOPICAL (17:51)
[2022-06-15] VITALS (22 sets, daily range): BP systolic 90–123; BP diastolic 59–83; PULSE 83–105; RESP 12–24; TEMP 36.3–37.1; O2SAT 94–98
[2022-06-15] MEDS: levalbuterol 1.25 mg/3 mL Neb INHALATION ×4 (01:56→20:52)
[2022-06-15 05:31] LABS: Basophils # 0.1 10^3/uL (0.0-0.1); Basophils % 1.4 %; Eosinophils # 0.2 10^3/uL (0.0-0.8); Eosinophils % 3.4 %; Hematocrit 36.4 % (42.0-52.0); Hemoglobin 11.1 g/dL (11.7-16.6); Lymphocytes # 1.3 10^3/uL (0.8-4.8); Lymphocytes % 22.4 %; Mean Corpuscular HGB Conc 30.5 g/dL (30.0-36.0); Mean Corpuscular Hemoglobin 24.5 pg (28.0-34.0); Mean Corpuscular Volume 80.4 fl (80-94); Monocytes # 0.9 10^3/uL (0.2-0.9); Monocytes % 16.1 %; Neutrophils # 3.15 10^3/uL (1.8-7.7); Neutrophils % 56.3 %; Nucleated Red Blood Cells % 0 %; Platelet Count 202 10^3/cmm (130-400); Red Blood Count 4.53 10^6/uL (4.1-5.3); Red Cell Distribution Width 19.7 % (12.1-15.1); White Blood Count 5.6 10^3/uL (4.0-10.0)
[2022-06-15 05:32] LABS: Mean Platelet Volume 12.8 fL (7.4-10.4)
--- NOTE | 2022-06-15 05:45 | PC.NURSE ---
Patient's groin shaved on right side, right radial/wrist shaved, pedal pulses bilaterally marked using venous doppler, and IV to left hand started.
[2022-06-15 06:20] LABS: Anion Gap 10.2 (5-19); Blood Urea Nitrogen 11 mg/dL (6-20); Carbon Dioxide 30 mmol/L (22-29); Chloride 94 mmol/L (98-107); Glomerular Filtration Rate 140.4 mL/min (90-130); Glucose 99 mg/dL (65-115); Osmolality Calculated 269 mOsm/kg (285-295); Potassium 4.2 mmol/L (3.5-5.1); Sodium 130 mmol/L (136-145)
[2022-06-15] MEDS: digoxin 250 mcg Tablet PO (09:42)
[2022-06-15] MEDS: potassium chloride ER 20 mEq Tablet 40 MEQ PO (09:43)
[2022-06-15] MEDS: FUROsemide 10 mg/mL SDV 4mL 40 MG IVP (09:43)
[2022-06-15] MEDS: mupirocin oint 22 gm 1 APPLIC TOPICAL (09:43)
[2022-06-15] MEDS: amiodarone 200 mg Tablet 400 MG PO ×2 (09:51→17:54)
--- NOTE | 2022-06-15 10:49 | PM.PN ---
Subjective Subjective: Cardiology has recommended to diurese him 1 more day But let him eat Plan for angiogram tomorrow morning Hypervolemic hyponatremia Creatinine is stable Blood pressure still on the softer side A. fib without RVR Vitals/I&O/Wt Last Vital Signs Temp 98.3 F 06/15/22 08:00 Pulse 99 06/15/22 09:42 Resp 16 06/15/22 08:50 BP 95/62 06/15/22 08:00 Pulse Ox 97 06/15/22 08:50 O2 Del Method 06/15/22 08:50 O2 Flow Rate 30 06/15/22 01:54 FiO2 30 06/15/22 08:50 06/14/22 06/15/22 06/15/22 22:59 06:59 14:59 Intake Total 1399 Output Total 750 / 2550 1600 / 4150 Balance 650 / -570 -1600 / -2170 Weight last 48 hrs Weight 135.307 kg Weight 135.307 kg Weight 136.441 kg Weight 134.717 kg Physical Exam Narrative: Patient was on BiPAP at the time of my evaluation Awake and alert Anasarca Bilateral lower extremity edema with venous stasis dermatitis Abdomen soft, distended, no worsening of cellulitis around umbilicus Awake and alert Saturating well Patient was agitated because he was n.p.o. Urinary Catheter Management: Sutherland: Cath Placed During This Visit: yes Urinary Catheter Date of Insertion: 06/10/22 Urinary Catheter Time of Insertion: 23:16 Data : 06/15/22 04:56 06/15/22 05:50 A&P Assessment and plan (1) Reduced ejection fraction concurrent with and due to acute heart failure: (2) Hypokalemia: (3) Pleural effusion: (4) Atrial fibrillation with RVR: (5) Acute exacerbation of CHF (congestive heart failure): (6) CHF (congestive heart failure): Plan Hypervolemic hyponatremia Acute systolic congestive heart exacerbation: Anasarca Continue IV diuresis Plan for angiogram tomorrow morning Dr. Thakur recommended 1 more day of diuresis T4 is normal however TSH was 15 does not need levothyroxine Afebrile A. fib without RVR he has been switched to p.o. amiodarone 400 mg twice daily Along digoxin Venous stasis dermatitis: Keep them elevated above heart level might benefit from compression wraps Lisinopril and spironolactone currently on hold Will request overnight pulse ox, another ABG tomorrow morning Patient is BiPAP dependent if he does not get BiPAP he is at risk of readmissions, he does have sleep apnea now he gets very short of breath he does not use BiPAP Attestations Medical Necessity Statement*: Continue hospitalization Time Spent in Patient Care: 40 Coding Level of Care Code Acute Supervisor Forming Department for Chg Fwd Diagnoses Reduced ejection fraction concurrent with and due to acute heart failure I50.21 Hypokalemia E87.6 Pleural effusion J90 Atrial fibrillation with RVR I48.91 Acute exacerbation of CHF (congestive heart failure) I50.9 CHF (congestive heart failure) I50.9
[2022-06-15] MEDS: enoxaparin 150 mg/mL Syringe 135 MG SUBCUT (12:04)
[2022-06-15 16:32] LABS: ABG PCO2 40.9 mmHg (35-45); ABG PH Result 7.52 (7.35-7.45); Arterial Blood Gas Hematocrit 35.3 % (42-52); Base Excess ABG 9.7 mmol/L (-2.0-2.0); Blood Gas Allen Test Pos; Blood Gas Sample Site Radial, right; Blood Gas Sample Type Arterial; HCO3 ABG 33.4 mmol/L (22-26); Oxygen Device NC
[2022-06-15 16:43] LABS: Blood Gas CCRB Time 1650
--- NOTE | 2022-06-15 17:24 | P.PN_ITS ---
Subjective Subjective: Patient still not able to lay down on back because of breathing trouble. Has been diuresing well. Vitals/I&O/Wt Last Vital Signs Temp 98.0 F 06/15/22 16:00 Pulse 83 06/15/22 16:00 Resp 18 06/15/22 16:00 BP 95/60 06/15/22 16:00 Pulse Ox 94 06/15/22 16:00 O2 Del Method 06/15/22 16:00 O2 Flow Rate 30 06/15/22 01:54 FiO2 25 06/15/22 16:00 06/15/22 06/15/22 06/15/22 06:59 14:59 22:59 Intake Total 1979 476 / 476 Output Total 1600 / 4150 1800 / 1800 Balance -1600 / -2170 -1324 / -1324 Weight last 48 hrs Weight 298 lb 4.8 oz Weight 298 lb 4.8 oz Weight 300 lb 12.8 oz Physical Exam Narrative: GENERAL: Patient is alert, awake and oriented x3. [] HEENT: No cyanosis. No icterus. No pallor. [] HEART: Irregularly irregular, tachycardic LUNGS: Diminished breath sounds ABDOMEN: Soft CENTRAL NERVOUS SYSTEM: Grossly nonfocal. [] EXTREMITIES: Lower extremities with 2+ edema bilaterally. Pulses palpable in the lower extremities, both dorsalis pedis and posterior tibial. [] Urinary Catheter Management: Sutherland: Cath Placed During This Visit: yes Urinary Catheter Date of Insertion: 06/10/22 Urinary Catheter Time of Insertion: 23:16 Data : 06/16/22 08:11 06/16/22 08:11 A&P Assessment and plan (1) Atrial fibrillation with RVR: (2) Pleural effusion: (3) Acute exacerbation of CHF (congestive heart failure): Plan We will diurese for today. Plan for coronary angiogram tomorrow Monitor renal function and left leg Continue anticoagulation with Lovenox Thank you for involving us with care of this patient. We will continue to follow. Please call with questions. Attestations Medical Necessity Statement*: Care expected to cross 2 midnight Coding Level of Care Code Acute Special Education Paraprofessional for Joycelyn Walters Diagnoses Atrial fibrillation with RVR I48.91 Pleural effusion J90 Acute exacerbation of CHF (congestive heart failure) I50.9
[2022-06-15] MEDS: nystatin powder 15 gm Btl 1 APPLIC TOPICAL (17:54)
--- NOTE | 2022-06-15 21:08 | PC.RESP ---
pt started on 2 lpm for overnight pulse ox study
[2022-06-16] VITALS (68 sets, daily range): BP systolic 92–141; BP diastolic 58–87; PULSE 76–105; RESP 0–48; TEMP 36.2–37.1; O2SAT 93–99
[2022-06-16] MEDS: enoxaparin 150 mg/mL Syringe 135 MG SUBCUT ×2 (00:15→22:55)
[2022-06-16] MEDS: levalbuterol 1.25 mg/3 mL Neb INHALATION ×4 (03:38→20:14)
[2022-06-16 08:24] LABS: Basophils % 0.8 %; Eosinophils # 0.1 10^3/uL (0.0-0.8); Eosinophils % 1.6 %; Hematocrit 35.5 % (42.0-52.0); Hemoglobin 10.7 g/dL (11.7-16.6); Lymphocytes # 0.8 10^3/uL (0.8-4.8); Lymphocytes % 15.9 %; Mean Corpuscular HGB Conc 30.1 g/dL (30.0-36.0); Mean Corpuscular Hemoglobin 24.3 pg (28.0-34.0); Mean Corpuscular Volume 80.7 fl (80-94); Mean Platelet Volume 11.6 fL (7.4-10.4); Monocytes # 0.7 10^3/uL (0.2-0.9); Monocytes % 13.5 %; Neutrophils % 67.8 %; Nucleated Red Blood Cells % 0 %; Platelet Count 208 10^3/cmm (130-400); Red Cell Distribution Width 19.5 % (12.1-15.1)
[2022-06-16 08:49] LABS: Anion Gap 11.5 (5-19); Blood Urea Nitrogen 10 mg/dL (6-20); Calcium 8.7 mg/dL (8.5-10.5); Carbon Dioxide 31 mmol/L (22-29); Chloride 97 mmol/L (98-107); Glomerular Filtration Rate 140.4 mL/min (90-130); Glucose 99 mg/dL (65-115); Osmolality Calculated 279 mOsm/kg (285-295); Potassium 4.5 mmol/L (3.5-5.1); Sodium 135 mmol/L (136-145)
--- NOTE | 2022-06-16 09:12 | XACV_ITS ---
Exam Room: 2 Ht: 175 cm Wt: 136 kg BSA: 2.64 m2 Gender: Male : 1965 Any Known Allergies: Other Exam Priority: Routine Procedure(s): Procedure Description: Diagnostic procedure Procedure Description: Left Heart Catheterization Procedure Description: Coronary Angiography Diagnostic Cath Status: Elective Diagnostic Findings * Left Anterior Descending has minimal luminal irregularities. * Distal Circumflex: Moderate to severe 70% stenosis, JADEN: 3 flow. * Left Main has no disease. * Right Coronary Artery has no disease. * Coronary angiography shows right dominance. Conclusions 1. Moderate to severe distal left circumflex artery stenosis. Otherwise nonobstructive CAD. Given lack of chest pain symptoms, we decided to medically treat distal left circumflex artery stenosis. 2. Nonischemic cardiomyopathy. Recommendations * Aggressive guideline directed heart failure therapy. * Outpatient cardiology follow-up in 4 weeks. Interventional RX Recommendation: medical therapy and/or counseling Diagnostic RX Recommendation: medical therapy and/or counseling Anticoagulation: Heparin Pressures Phase:Rest AO : 95 / 67 ( 80 ) @ 11:05:00 AM 113 / 76 ( 90 ) @ 11:10:00 AM 115 / 75 ( 90 ) @ 11:10:00 AM LV : 119 / 12 / 32 @ 11:10:00 AM 125 / 11 / 40 @ 11:10:00 AM Valves Phase:DefaultPhase AV : 11.0 @ 10:22:38 AM AV Mean Gradient: 10.0 @ 10:22:38 AM Clinical Evaluation EBL: 5mL-10mL Procedural Details Procedure Consent Obtained. Pre-Procedure Time Out. Identified patient by full name and date of as verbalized by the patient/guarantor. Does the consent match the physician's order: Yes. Accurate & Complete Informed Consent: Yes. Inpatient/Outpatient History & Physical on Chart: Yes. If H&P is completed, is and addenduem needed: No. Visualize and Verify Site with Patient/Guarantor: N/A. Relevant Radiology Images available: Yes. The risks, benefits, and alternatives of sedation and/or procedure were discussed by physician. The patient agrees to continue. Procedure started. [facility] Clinical Fraility Score: 4: Vulnerable. Recruiting Manager Indications: LV Dysfunction. Chest Pain Symptom Assessment: Asymptomatic. Cardiovascular Instability: No. Correct patient, site and procedure confirmed by cath team. PERRLA. Strong, equal hand curbstone setter bilaterally. Lungs clear x 5 lobes. IV Site on Arrival: 20 gauge in the left hand. IV Fluids: 0.9% NaCl at KVO. 0 mL infused prior to foundry laborer coreroom. Pre Procedural Pulses: bilateral posterior tibial was Doppled. Pre Procedural Pulses: bilateral dorsalis pedis was Doppled. Pre Procedural Pulses: bilateral radial was 1+. RT therapy at bedside to place CPap prior to starting procedure. right groin was prepped with chloroprep then draped in the usual sterile fashion. right radial was prepped with chloroprep then draped in the usual sterile fashion. Physician notified. Baseline sample Acquired. HR: 76 BPM. Patient arrived to foundry laborer coreroom with a uplliam. Bag to gravity with clear urine returning. Patient's family unavailable. The patient requests Chacorta Blaze to call his daughter, Lynn, at at the completio of the procedure. Equipment: 6F - Radial. Cardiac Cath Pack. ACIST Manifold Kit Model BT 2000. Heparinized Saline (2 units/mL), 1000 mL bag. Physician arrived. Physician scrubbed in. Immediate Pre-Procedure Time Out. Correct Patient: Yes; Correct Procedure: Yes; Correct Site: Yes; Correct Patient Position: Yes; Correct Supplies: Yes; Dried Flammable Prep: Yes; Blood Products Available: N/A;. Lidocaine 1% infiltrated to the right radial. Arterial access obtained. A 5 nepali TIG catheter in over the standard wire. Multiple views taken of left coronary artery. RT called to assist with CPap settings. O2 sats 77-82% currently. Catheter redirected to the RCA. Multiple views taken of right coronary artery. Catheter redirected to the LV. EDP Sample taken: LV 119/12,32; HR: 88 BPM; SpO2: 97%. Pullback taken: LV 125/11,40; AO 113/76(90); Mean: 10mmHg, Peak to Peak: 11mmHg, SEP: 20sec/min; HR: 87 BPM; SpO2: 97%. Catheter removed over the standard wire. Dr. Thakur scrubbed out. TR band placed. Hemostasis obtained. A TR Band was successful obtaining hemostatsis at the Right Radial artery insertion site. Post Procedure: Pulses reassessed and unchanged. PERRLA. Strong, equal hand curbstone setter bilaterally. No VTE prophylaxis required. Medication's Wasted: Lidocaine 1% = 3 mL. Medication's Wasted: Nitro = 49.8 mg. Medication's Wasted: Heparin = 2000 units. Total IV fluids: 20 mL. Post-op diagnosis: Mod-severe left circumflex artery disease. Non-ischemic cardiomyopathy. Complications: none. Estimated blood loss: 5mL-10mL. Responsiveness - Normal response to verbal stimuli; alert and oriented, PERRLA. Airway - Unaffected, no intervention required; spontaneous ventilation. Circulation: W/N/L, pulses unchanged. Nausea/Vomiting: No. Procedure completed. Patient transferred by bed to [facility]. Vital chart was stopped. Access Site Site: Right Radial artery Sheath Size: 6 Fr Hemostasis Method: TR Band Hemostasis Success: Successful Procedure Medications Start: 9:56 AM Stop: 9:56 AM Medication: Versed Amount: 1 mg Route: I.V. Start: 9:56 AM Stop: 9:56 AM Medication: Fentanyl Amount: 25 mcg Route: I.V. Start: 9:56 AM Stop: 9:56 AM Medication: Versed Amount: 1 mg Route: I.V. Start: 9:57 AM Stop: 9:57 AM Medication: Nitrogylcerin Amount: 200 mcg Route: I.A. Start: 10:00 AM Stop: 10:00 AM Medication: Heparin Amount: 4000 units Route: I.V. I, the attending physician, have reviewed and verified all procedure medications. Yes, all medications given per verbal order History/Risk Factors Hypertension: No Dyslipidemia: No Peripheral Arterial Disease (PAD): No Myocardial Infarction (OK): No Obesity: Yes Renal Disease: No Prior Interventions PCI: No CABG: No Valve Surgery: No Report Signatures Finalized by Vic Thakur MD on 06/20/2022 10:51 PM
--- NOTE | 2022-06-16 09:14 | W.PM.OPSUD ---
Surgery/Procedure H&P Update DATE OF PROCEDURE: June 16, 2022 DATE H&P PERFORMED: 06/13/22 H&P UPDATE INFORMATION: I have reviewed H&P completed within last 30 days, I have examined patient prior to procedure and No changes to prior documentation PREOP DIAGNOSIS: LV dysfunction/failure reduced ejection PRIMARY INDICATION FOR PROCEDURE: LV dysfunction/failure reduced ejection PLANNED PROCEDURE: Left heart cath with possible percutaneous coronary intervention PATIENT REASSESSED PRIOR TO SEDATION, WITH NO CHANGE NOTED: Yes PHYSICAL EXAM: alert, oriented x 3, clear to auscultation bilaterally and regular rate & rhythm AIRWAY EVAL/ANESTHESIA PLAN: ASA IV, Monitored Anesthesia, Risks, benefits & alternatives of sedation and/or procedure discussed and Patient agrees to continue as planned ADDITIONAL INFORMATION: Moderate sedation
--- NOTE | 2022-06-16 10:52 | P.PN_ITS ---
Subjective Subjective: Patient was agitated because he was kept n.p.o. He wants to leave AMA however agreed to stay 's office insurance has not been improved and he is not meeting BiPAP criteria He is agreeable for angiogram today Vitals/I&O/Wt Last Vital Signs Temp 98.1 F 06/16/22 08:00 Pulse 84 06/16/22 09:05 Resp 22 H 06/16/22 09:05 BP 102/63 06/16/22 08:00 Pulse Ox 94 06/16/22 10:11 O2 Del Method 06/16/22 09:05 O2 Flow Rate 2 06/16/22 03:40 FiO2 50 06/16/22 10:11 06/15/22 06/16/22 06/16/22 22:59 06:59 14:59 Intake Total 1320 / 1796 Output Total 1200 / 3000 1650 / 4650 Balance 120 / -1204 -1650 / -2854 Weight last 48 hrs Weight 134.535 kg Weight 135.307 kg Weight 135.307 kg Physical Exam Narrative: Awake and alert Anasarca CHF exacerbation Venous stasis dermatitis Currently on 2 L A. fib without RVR Nonfocal neuro exam Distended abdomen nontender Urinary Catheter Management: Sutherland: Cath Placed During This Visit: yes Urinary Catheter Date of Insertion: 06/10/22 Urinary Catheter Time of Insertion: 23:16 Data : 06/16/22 08:11 06/16/22 08:11 A&P Assessment and plan (1) Reduced ejection fraction concurrent with and due to acute heart failure: (2) Hypokalemia: (3) Pleural effusion: (4) Atrial fibrillation with RVR: (5) Acute exacerbation of CHF (congestive heart failure): (6) CHF (congestive heart failure): Plan Acute systolic CHF exacerbation Angiogram today Continue diuresis Chronic hypoxia He is requiring BiPAP every night Currently on 2 L of oxygen during the daytime Status post thoracentesis Pleural fluid consistent with CHF transudative effusion A. fib without RVR Did well with amiodarone and digoxin Patient does not want to go to any [place] health care facility Plan to send him home with outpatient pulmonary follow-up Start cardiac diet after the procedure Plan to discharge him tomorrow if he is stable Attestations Medical Necessity Statement*: Angiogram today Time Spent in Patient Care: 40 Coding Level of Care Code Acute Control Specialist for Chg Fwd Diagnoses Reduced ejection fraction concurrent with and due to acute heart failure I50.21 Hypokalemia E87.6 Pleural effusion J90 Atrial fibrillation with RVR I48.91 Acute exacerbation of CHF (congestive heart failure) I50.9 CHF (congestive heart failure) I50.9
[2022-06-16] MEDS: FUROsemide 10 mg/mL SDV 4mL 40 MG IVP (10:57)
[2022-06-16] MEDS: amiodarone 200 mg Tablet 400 MG PO ×2 (10:57→18:09)
[2022-06-16] MEDS: digoxin 250 mcg Tablet PO (10:58)
[2022-06-16] MEDS: mupirocin oint 22 gm 1 APPLIC TOPICAL ×2 (10:58→20:42)
[2022-06-16] MEDS: potassium chloride ER 20 mEq Tablet 40 MEQ PO (10:58)
[2022-06-16] MEDS: nystatin powder 15 gm Btl 1 APPLIC TOPICAL ×2 (10:59→20:42)
--- NOTE | 2022-06-16 11:31 | PC.NURSE ---
received from cardiac clinical lab technologist at 1030 via bed.report received.pt is alert and awake.denies pain.sr on monitor.right radial tr band is on and inflated.right hand is warm to touch and with brisk capillary refill.palpable radial pulse noted distal to tr band.no hematoma noted.pt instructed in activity restrictions s/p radial artery procedure..and instructed to notify staff for any bleeding,pain,numbness,bruising,sob...or for any concerns at all.pt verb understanding of instructions
--- NOTE | 2022-06-16 15:58 | PC.NURSE ---
tr band slowly deflated and finally removed at 1415.right hand remains warm to touch and with brisk capillary refill.no hematoma noted.palpable radial pulse noted.site dressed with 2x2 gauze and secured with biocclusive drsg.pt instructed in activity restrictions s/p tr band removal..and instructed to notify staff for any bleeding,pain,numbness,bruising..or for any concerns at all.pt verb understanding of instructions.
--- NOTE | 2022-06-16 16:12 | P.PN_ITS ---
Subjective Subjective: Patient underwent coronary angiogram today that showed moderate to severe disease of distal left circumflex artery, otherwise non obstructive CAD. He has non ischemic cardiomyopathy. Vitals/I&O/Wt Last Vital Signs Temp 98.0 F 06/16/22 11:33 Pulse 87 06/16/22 16:00 Resp 2 L 06/16/22 16:00 BP 127/87 06/16/22 11:33 Pulse Ox 96 06/16/22 15:09 O2 Del Method 06/16/22 15:09 O2 Flow Rate 2 06/16/22 15:09 FiO2 50 06/16/22 10:11 06/16/22 06/16/22 06/16/22 06:59 14:59 22:59 Output Total 1650 / 4650 3200 / 3200 Balance -1650 / -2854 -3200 / -3200 Weight last 48 hrs Weight 296 lb 9.6 oz Weight 298 lb 4.8 oz Weight 298 lb 4.8 oz Physical Exam Narrative: GENERAL: Patient is alert, awake and oriented x3. [] HEENT: No cyanosis. No icterus. No pallor. [] HEART: Irregularly irregular, tachycardic LUNGS: Diminished breath sounds ABDOMEN: Soft CENTRAL NERVOUS SYSTEM: Grossly nonfocal. [] EXTREMITIES: Lower extremities with 2+ edema bilaterally. Pulses palpable in the lower extremities, both dorsalis pedis and posterior tibial. [] Urinary Catheter Management: Sutherland: Cath Placed During This Visit: yes Urinary Catheter Date of Insertion: 06/10/22 Urinary Catheter Time of Insertion: 23:16 Data : 06/16/22 08:11 06/16/22 08:11 A&P Assessment and plan (1) Atrial fibrillation with RVR: (2) Pleural effusion: (3) Acute exacerbation of CHF (congestive heart failure): Plan Patient's coronary angiogram showed non ischemic cardiomyopathy. Likely etiology is atrial fibrillation. LV EDP was elevated. Will need further diuresis. Continue anti coagulation. Can switch to Eliquis Thank you for involving us with care of this patient. We will continue to follow. Please call with questions. Attestations Medical Necessity Statement*: Care expected to cross 2 midnights Coding Level of Care Code Acute Linux Security Administrator for [facility] Fwd Diagnoses Atrial fibrillation with RVR I48.91 Pleural effusion J90 Acute exacerbation of CHF (congestive heart failure) I50.9
[2022-06-17] VITALS (12 sets, daily range): BP systolic 100–136; BP diastolic 65–81; PULSE 84–96; RESP 16–20; TEMP 36.4–37.2; O2SAT 91–97
[2022-06-17] MEDS: levalbuterol 1.25 mg/3 mL Neb INHALATION ×2 (02:41→07:59)
[2022-06-17 08:13] LABS: Basophils # 0.1 10^3/uL (0.0-0.1); Basophils % 0.9 %; Eosinophils # 0.1 10^3/uL (0.0-0.8); Hematocrit 34.7 % (42.0-52.0); Hemoglobin 10.5 g/dL (11.7-16.6); Lymphocytes # 0.9 10^3/uL (0.8-4.8); Lymphocytes % 16.3 %; Mean Corpuscular HGB Conc 30.3 g/dL (30.0-36.0); Mean Corpuscular Hemoglobin 24.1 pg (28.0-34.0); Mean Corpuscular Volume 79.6 fl (80-94); Mean Platelet Volume 10.6 fL (7.4-10.4); Monocytes # 0.8 10^3/uL (0.2-0.9); Monocytes % 14.5 %; Neutrophils # 3.56 10^3/uL (1.8-7.7); Neutrophils % 66.1 %; Nucleated Red Blood Cells % 0 %; Platelet Count 184 10^3/cmm (130-400); Red Blood Count 4.36 10^6/uL (4.1-5.3); Red Cell Distribution Width 19.7 % (12.1-15.1); White Blood Count 5.4 10^3/uL (4.0-10.0)
--- NOTE | 2022-06-17 08:15 | P.PN_ITS ---
Subjective Subjective: Patient is stable. Breathing is better. Coronary angiogram showed non ischemic cardiomyopathy Vitals/I&O/Wt Last Vital Signs Temp 97.9 F 06/17/22 07:55 Pulse 86 06/17/22 08:09 Resp 16 06/17/22 08:05 BP 120/81 06/17/22 07:55 Pulse Ox 96 06/17/22 08:05 O2 Del Method 06/17/22 08:05 O2 Flow Rate 2 06/17/22 08:05 FiO2 26 06/17/22 02:44 06/16/22 06/17/22 06/17/22 22:59 06:59 14:59 Intake Total 840 / 1320 Output Total 1300 / 4500 250 / 4750 Balance -460 / -3180 -250 / -3430 Weight last 48 hrs Weight 298 lb 12.8 oz Weight 298 lb 12.8 oz Weight 296 lb 9.6 oz Physical Exam Narrative: GENERAL: Patient is alert, awake and oriented x3. [] HEENT: No cyanosis. No icterus. No pallor. [] HEART: Irregularly irregular, tachycardic LUNGS: Diminished breath sounds ABDOMEN: Soft CENTRAL NERVOUS SYSTEM: Grossly nonfocal. [] EXTREMITIES: Lower extremities with 2+ edema bilaterally. Pulses palpable in the lower extremities, both dorsalis pedis and posterior tibial. [] Urinary Catheter Management: Sutherland: Cath Placed During This Visit: yes Urinary Catheter Date of Insertion: 06/10/22 Urinary Catheter Time of Insertion: 23:16 Data : 06/17/22 08:05 06/17/22 08:05 A&P Assessment and plan (1) Atrial fibrillation with RVR: (2) Pleural effusion: (3) Acute exacerbation of CHF (congestive heart failure): Plan Patient's coronary angiogram showed non ischemic cardiomyopathy. Likely etiology is atrial fibrillation. High-dose diuretic therapy as outpatient. Continue anticoagulation with Eliquis. Thank you for involving us with care of this patient. Patient is stable to be discharged from cardiology follow up. Please call with questions. Attestations Medical Necessity Statement*: Care expected to cross 2 midnights. Coding Level of Care Code Acute Planning Management It Specialist for Joycelyn Walters Diagnoses Atrial fibrillation with RVR I48.91 Pleural effusion J90 Acute exacerbation of CHF (congestive heart failure) I50.9
[2022-06-17 08:31] LABS: Anion Gap 12.3 (5-19); Blood Urea Nitrogen 9 mg/dL (6-20); Calcium 9.1 mg/dL (8.5-10.5); Carbon Dioxide 30 mmol/L (22-29); Chloride 97 mmol/L (98-107); Glomerular Filtration Rate 140.4 mL/min (90-130); Glucose 103 mg/dL (65-115); Osmolality Calculated 279 mOsm/kg (285-295); Potassium 4.3 mmol/L (3.5-5.1); Sodium 135 mmol/L (136-145)
[2022-06-17] MEDS: spironolactone 25 mg Tablet 12.5 MG PO (08:35)
[2022-06-17] MEDS: lisinopril 5 mg Tablet PO (08:39)
[2022-06-17] MEDS: potassium chloride ER 20 mEq Tablet 40 MEQ PO (08:39)
[2022-06-17] MEDS: FUROsemide 10 mg/mL SDV 4mL 40 MG IVP (08:40)
[2022-06-17] MEDS: digoxin 250 mcg Tablet PO (08:40)
[2022-06-17] MEDS: amiodarone 200 mg Tablet 400 MG PO (08:40)
--- NOTE | 2022-06-17 11:40 | PM.DCS ---
Discharge Providers Date of Admission: 06/10/22 23:05 Date of Discharge: June 17, 2022 Attending Provider at Admission: Jas Del Rosario MD Attending Provider at Discharge: Balta Saravia MD Diagnoses at Discharge Discharge Diagnosis (1) Atrial fibrillation with RVR: Status: Acute (2) Pleural effusion: Status: Acute (3) Acute exacerbation of CHF (congestive heart failure): Status: Acute Reason for Visit Reason for Visit: sob Hospital Course Hospital Course 56-year-old male who moved from [facility] admitted to the hospital for worsening of shortness of breath he was diagnosed with congestive heart failure, echo showed EF 33%, I requested records from [facility], review of records revealed that patient left AMA when he was being managed for congestive heart failure exacerbation, there was concern for untreated sleep apnea he was requiring 2 to 3 L of oxygen, COVID was negative, I do not see echo report, during her hospitalization cardiology was consulted for coronary angiogram because of low EF, nonischemic cardiomyopathy was diagnosed, Dr. Jade did not recommend LifeVest at the time of discharge, his left ventricular end-diastolic pressure is still high despite aggressive diuresis throughout hospitalization, total -13,000 mL during hospitalization, patient is still fluid overloaded anasarca take cardiology has recommended Lasix 60 mg twice daily along metolazone, increase the dose of levothyroxine. Patient also suffer from A. fib RVR not a candidate of AV da blocking agents because of low blood pressure he was started on digoxin and amiodarone, he will go home on amiodarone 200 mg twice daily for 14 days and then switch to 200 mg daily along with Eliquis 5 mg twice daily. Blood pressure is staying on the softer side I have not added lisinopril or spironolactone which might be added down the road I will give him referral to see Dr. Thakur outpatient. Patient required BiPAP stating that he cannot lay flat he never slept supine, we were not able to get his BiPAP approved because his [facility] insurance is being converted to [place] insurance, his PCO2 was never above 55 however sleep apnea episodes were noted. He will get sleep study referral. Patient is stating that he was diagnosed with sepsis from wound infection around his umbilicus and spent quite a lot of time in the hospital in [place], patient is stating that he was told that he would need CPAP. Never had any sleep study done. Living with his daughter. We will try to arrange home health services Physical Exam Narrative: Variable S1-S2 no RVR Anasarca Bilateral breath sounds without active crackles Venous stasis dermatitis Erythema noted however no active signs of cellulitis Abdominal girth has not worsened however noted scar around his umbilicus Soft Tolerating diet Currently on 2 L of oxygen Urinary Catheter Management: Sutherland: Cath Placed During This Visit: yes Urinary Catheter Date of Insertion: 06/10/22 Urinary Catheter Time of Insertion: 23:16 Discharge Data Studies Completed and Pending Completed Studies During Hospitalization Category Date Time Status CTA chest [CT angio chest PE protcl [id number]] Stat Cat Scan 06/10/22 21:50 Completed XR chest 1V portable [id number] Stat Exams 06/10/22 20:55 Completed XR chest 1V portable [id number] Urgent Exams 06/11/22 10:09 Completed CV. echo wo/w contrast [id number] Routine Ultrasound 06/11/22 23:08 Completed US thoracentesis [id number] Routine Ultrasound 06/11/22 00:14 Completed US venous duplex lower extremity bilat [CV venous Ultrasound 06/11/22 10:27 [place] [id number]] Routine Pending at discharge Category Date Time Status CONSTRUCTION DRILLER request for service Routine Exams 06/16/22 09:12 Taken Radiology Impressions Chest CTA 06/10/22 21:50 IMPRESSION: 1. Fullness in the pulmonary vasculature suggesting volume overload in the lungs. 2. Large right and moderate left pleural effusions. 3. No evidence for pulmonary embolism. 4. Findings in the visualized liver suspicious for cirrhosis. 5. Small pericardial effusion. 6. Incidental/nonacute findings are listed in the report. Thoracentesis Ultrasound 06/11/22 00:14 IMPRESSION: Uncomplicated ultrasound-guided thoracentesis. Chest X-Ray 06/11/22 10:09 IMPRESSION: Post RIGHT thoracentesis. No pneumothorax. Laboratory Results WBC 5.4 10^3/uL (4.0-10.0) 06/17/22 08:05 RBC 4.36 10^6/uL (4.1-5.3) 06/17/22 08:05 Hgb 10.5 g/dL (11.7-16.6) L 06/17/22 08:05 Hct 34.7 % (42.0-52.0) L 06/17/22 08:05 MCV 79.6 fl (80-94) L 06/17/22 08:05 MCH 24.1 pg (28.0-34.0) L 06/17/22 08:05 MCHC 30.3 g/dL (30.0-36.0) 06/17/22 08:05 RDW 19.7 % (12.1-15.1) H 06/17/22 08:05 Plt Count 184 10^3/cmm (130-400) 06/17/22 08:05 MPV 10.6 fL (7.4-10.4) H 06/17/22 08:05 Neut % (Auto) 66.1 % 06/17/22 08:05 Lymph % (Auto) 16.3 % 06/17/22 08:05 Rooks % (Auto) 14.5 % 06/17/22 08:05 Eos % (Auto) 2.0 % 06/17/22 08:05 Baso % (Auto) 0.9 % 06/17/22 08:05 Neut # (Auto) 3.56 10^3/uL (1.8-7.7) 06/17/22 08:05 Lymph # (Auto) 0.9 10^3/uL (0.8-4.8) 06/17/22 08:05 Rooks # (Auto) 0.8 10^3/uL (0.2-0.9) 06/17/22 08:05 Eos # (Auto) 0.1 10^3/uL (0.0-0.8) 06/17/22 08:05 Baso # (Auto) 0.1 10^3/uL (0.0-0.1) 06/17/22 08:05 Nucleated RBC % (auto) 0 % 06/17/22 08:05 Nucleated RBCs # 0.0 /100WBC 06/17/22 08:05 PT 15.80 SECONDS (12.1-14.9) H 06/11/22 03:03 INR 1.23 (0.8-1.2) H 06/11/22 03:03 APTT 31.1 SECONDS (23.9-36.7) 06/11/22 03:03 D-Dimer 5.24 ug/mIFEU (0-0.59) H 06/10/22 21:05 Specimen Type Arterial 06/15/22 16:27 Sample Site Radial, right 06/15/22 16:27 ABG pH 7.52 (7.35-7.45) H 06/15/22 16:27 ABG pCO2 40.9 mmHg (35-45) 06/15/22 16: ABG pO2 105.0 mmHg (80.0-100.0) H 06/15/22 16:27 ABG HCO3 33.4 mmol/L (22-26) H 06/15/22 16: ABG Base Excess 9.7 mmol/L (-2.0-2.0) H 06/15/22 16:27 Parker Test Pos 06/15/22 16: Hematocrit 35.3 % (42-52) L 06/15/22 16: O2 Delivery Device Nc 06/15/22 16: O2 Liters/Min 2.0 % 06/15/22: FiO2 28.0 % 06/15/22 16: Judge'S Clerk ID [email or web address] 06/15/22 16:27 Blood Gas Notified Time 1650 06/15/22 16:27 Sodium 135 mmol/L (136-145) L 06/17/22 08:05 Potassium 4.3 mmol/L (3.5-5.1) 06/17/22 08:05 Chloride 97 mmol/L (98-107) L 06/17/22 08:05 Carbon Dioxide 30 mmol/L (22-29) H 06/17/22 08:05 Anion Gap 12.3 (5-19) 06/17/22 08:05 BUN 9 mg/dL (6-20) 06/17/22 08:05 Creatinine 0.6 mg/dL (0.7-1.2) L 06/17/22 08:05 GFR Calculation 140.4 mL/min (90-130) H 06/17/22 08:05 Glucose 103 mg/dL (65-115) 06/17/22 08:05 Calculated Osmolality 279 mOsm/kg (285-295) L 06/17/22 08:05 Calcium 9.1 mg/dL (8.5-10.5) 06/17/22 08:05 Magnesium 1.9 mg/dL (1.7-2.3) 06/13/22 03:50 Total Bilirubin 0.5 mg/dL (0.15-1.2) 06/13/22 03:50 AST 13 U/L (0-40) 06/13/22 03:50 ALT 10 U/L (0-41) 06/13/22 03:50 Alkaline Phosphatase 137 U/L (40-130) H 06/13/22 03:50 Lactate Dehydrogenase 169 U/L (135-225) 06/11/22 03:03 Lactate Dehydrogenase Cancelled 06/11/22 03:03 Troponin T Baseline 34 ng/L (0-15) H 06/10/22 21:05 Troponin T 120 Minute 29.92 ng/L (0-15) H 06/10/22 23:16 Delta Troponin T -4.08 ABS# (0-10) L 06/10/22 23:16 Troponin T Hi Sens 6Hr 30.63 ng/L (0-15) H 06/11/22 03:03 Troponin T Hi Sens 6Hr Delta -3.37 ng/L (0-12) L 06/11/22 03:03 NT-Pro-B Natriuret Pep 4413 pg/mL (0-125) H 06/10/22 21:05 Total Protein 5.6 g/dL (6.6-8.7) L 06/13/22 03:50 Albumin 2.8 g/dL (3.5-5.2) L 06/13/22 03:50 Globulin 2.8 g/dL (1.3-4.6) 06/13/22 03:50 Procalcitonin 0.05 ng/mL (0-0.5) 06/11/22 03:03 Procalcitonin Cancelled 06/11/22 03:03 TSH 15.25 uIU/mL (0.27-4.20) H 06/12/22 04:27 Free T4 0.92 ng/dL (0.82-1.77) 06/12/22 04:27 Pleural pH 7.50 (6.5-7.5) 06/11/22 10:10 Pleural Total Protein 2.0 g/dL 06/11/22 10:10 Pleural Albumin 1.2 g/dL 06/11/22 10:10 Pleural LDH 71 U/L 06/11/22 10:10 Pleural Glucose 116.0 mg/dL 06/11/22 10:10 Vitals Last Vital Signs Temp 98.0 F 06/17/22 11:33 Pulse 85 06/17/22 11:33 Resp 17 06/17/22 11:33 BP 136/78 06/17/22 11:33 Pulse Ox 96 06/17/22 11:33 O2 Del Method 06/17/22 11:33 O2 Flow Rate 2 06/17/22 08:05 FiO2 26 06/17/22 11:00 Discharge Plan Discharge Patient Disposition: Home Health Service Condition: Stable Prescriptions: New digoxin 250 mcg (0.25 mg) Tablet 250 mcg PO DAILY Qty: 30 3RF metolazone 2.5 mg tablet 2.5 mg PO DAILY Qty: 30 0RF Eliquis 5 mg tablet 5 mg PO BID Qty: 120 3RF amiodarone 200 mg tablet 200 mg PO BID 7 Days Qty: 14 0RF Rx Instructions: 200 mg twice daily for 14 days and then start taking 200 mg daily potassium chloride 10 mEq tablet extended release 10 meq PO BID Qty: 60 2RF Lasix 40 mg tablet 60 mg PO BID Qty: 60 3RF Rx Instructions: Take Lasix 60 mg twice a day for 7 days and then start taking 60 mg daily please take potassium only with Lasix albuterol sulfate 90 mcg/actuation HFA aerosol inhaler 2 inh inhalation Q8H PRN (Reason: shortness of breath or wheezing) Qty: 8.5 3RF Continued budesonide-formoterol 80-4.5 mcg/actuation Hfa Aerosol Inhaler 2 puff INHALATION BID Changed levothyroxine 25 mcg Tablet 50 mcg PO DAILY Qty: 60 0RF Discontinued furosemide 40 mg Tablet 40 mg PO BID diltiazem HCl 120 mg Capsule,Ext.Rel 24h Degradable 120 mg PO DAILY hydroxyzine HCl 10 mg Tablet 10 mg PO TID PRN (Reason: Itching) Discharge Orders: Discharge Order (Routine); Ordered 06/17/22 Ordered By: Balta Saravia Other Ambulatory Orders: Sleep Study/Titration (Routine) Timeframe: 2 Weeks Facility: [facility] - Location: [facility] Ordered By: Balta Saravia Referrals: [email or web address] [Other] ([email or web address] has accepted you to services. If you have any questions or concerns please contact them at [phone].) Vic Thakur M.D [Physician] - 2 weeks Discharge Diet: Cardiac Discharge Activity: Increase activity as tolerated Patient Instructions: Digoxin (By mouth), Metolazone (By mouth), Furosemide (By mouth), Amiodarone (By mouth), Apixaban (By mouth), Opioid Safety Discharge Attestations Time Spent in Discharge Care*: less than 30 min Quality Metrics Clinical Quality Measures [ No reported AMI, CVA or VTE this stay] Coding Level of Care Code Acute Chg FW DC note Diagnoses Atrial fibrillation with RVR I48.91 Pleural effusion J90 Acute exacerbation of CHF (congestive heart failure) I50.9
== END 2022-06-17 14:20 | disposition home or self-care (01) | DRG 286 ==
LOC: ER 22:34 → MEDSURG 23:19
PROVIDERS: Internal Medicine; Admitting Provider Internal Medicine; Emergency Provider Emergency Medicine; Visit Provider Internal Medicine
PROC: 4A023N7 Measurement of Cardiac Sampling and Pressure, Left Heart, Percutaneous Approach (ICD-10-PCS; principal; 2022-06-16 09:30)
DX: I11.0 Hypertensive heart disease with heart failure (principal); I50.21 Acute systolic (congestive) heart failure; J90 Pleural effusion, not elsewhere classified; E03.9 Hypothyroidism, unspecified; F17.200 Nicotine dependence, unspecified, uncomplicated; T50.1X6A Underdosing of loop [high-ceiling] diuretics, initial encounter; Z91.128 Patient's intentional underdosing of medication regimen for other reason; Z87.01 Personal history of pneumonia (recurrent); I48.91 Unspecified atrial fibrillation; F15.11 Other stimulant abuse, in remission; I42.8 Other cardiomyopathies; I25.10 Atherosclerotic heart disease of native coronary artery without angina pectoris; I87.2 Venous insufficiency (chronic) (peripheral); E87.6 Hypokalemia; G47.30 Sleep apnea, unspecified
CPT/HCPCS: 32555; 36415; 36600; 51702; 71045; 71275; 80048; 80053; 80503; 82042; 82803; 82945; 83615; 83735; 83880; 83986; 84145; 84157; 84439; 84443; 84484; 85025; 85378; 85610; 85730; 88108; 93005; 93458; 93970; 94640; 94660; 94760; 94762; 96372; 96374; 97110; 97161; 99152; 99291; C1769; C1887; C1894; C8929; J0282; J1160; J1644; J1650; J1940; J2250; J3010; J3490; J7030; J7060; J7614; J7644; Q9956; Q9967

== ENCOUNTER 2022-11-25 01:52 | Inpatient (IN) | payer MEDICAID, SELFPAY ==
[2022-11-25] VITALS (33 sets, daily range): BP systolic 118–150; BP diastolic 87–117; PULSE 96–115; RESP 0–29; TEMP 35.8–36.7; O2SAT 89–101; BMI 27.3
--- NOTE | 2022-11-25 01:54 | W.ED.SOB ---
HPI - SOB/Dyspnea General: Chief Complaint: Shortness of Breath/Dyspnea Stated Complaint: difficulty breathing Time Seen by Provider: 11/25/22 01:54 History of Present Illness: HPI Narrative: Mr. Coffman is a 57-year-old gentleman with history of nonischemic cardiomyopathy, COPD with intermittent home oxygen use presenting to the emergency department for shortness of breath. He has been not been compliant with his medication regimen for approximately 3 weeks as he reports that he was from his medications. Starting approximately 7 to 10 days ago he has had progressive gradual onset of worsening respiratory status. He notes dyspnea as well as generalized weakness. He has associated substernal chest pain. Symptoms are worse with with exertion and lying flat. Mild relief with oxygen. No other specific changes in health, exacerbating, or alleviating factors identified. Onset (ago): week(s) Timing: progressively worsening Severity: severe Exacerbating factors: lying flat and exertion Associated symptoms: Reports chest pain and other Review of Systems General: Reports: 10 or more systems reviewed and unremarkable except in HPI and below Card: Reports: chest pain PFSH ED PFSH: Medical History Acute exacerbation of CHF (congestive heart failure) Atrial fibrillation with RVR BiPAP (biphasic positive airway pressure) dependence CHF (congestive heart failure) COPD (chronic obstructive pulmonary disease) Hypokalemia Pleural effusion Reduced ejection fraction concurrent with and due to acute heart failure Sleep apnea Social History (Updated 11/25/22 @ 05:20 by Kiran Sloan MD) Substance/Drug Use: former Physical Exam Const: COMMON NORMALS: alert GENERAL APPEARANCE: cooperative, well developed and ill appearing HENMT: COMMON NORMALS: normocephalic and atraumatic HEAD & SCALP: normocephalic and atraumatic Eye: COMMON NORMALS: conjunctivae normal CONJUNCTIVA: Yes conjunctivae normal SCLERA: sclerae normal Neck/C-Spine: COMMON NORMALS: supple GENERAL: Yes trachea midline Resp: EFFORT & INSPECTION: Yes tachypneic AUSCULTATION: diminished lung sounds Cardio: COMMON NORMALS: regular rhythm RATE: tachycardic RHYTHM: regular rhythm GI: COMMON NORMALS: Soft to palpation PALPATION: Yes Soft to palpation and No Tenderness to palpation present (GI) Extremity: GENERAL: Yes normal exam except as noted and No edema Neuro: COMMON NORMALS: moves all extremities SENSORIUM/ORIENTATION: Yes alert and No Orientation impaired Psych: COMMON NORMALS: mental status grossly normal and Normal thought process present THOUGHT PROCESS: Normal thought process present Skin: NARRATIVE SKIN EXAM: cool deminished but symetric. Noninfected appearing chronic wound with scabbing of the left garrett. Course Vital Signs: Vital signs: Vital Signs Pulse Rate 111 H 11/25/22 05:05 Respiratory Rate 19 H 11/25/22 05:05 Blood Pressure 146/112 11/25/22 05:00 Pulse Oximetry 100 11/25/22 05:05 Oxygen Delivery Me thod 11/25/22 04:10 Fraction of Inspir ed Oxygen 30 11/25/22 04:10 MDM - SOB/Dyspnea Medical Decision Making 57-year-old gentleman presenting via EMS for chest pain and shortness of breath. Patient has a history of likely COPD and history of cardiomyopathy with heart failure and reduced ejection fraction. He is essentially not been taking his medication for a number of weeks and has had progressive onset of shortness of breath. Initial clinical exam is quite concerning. The patient is ill-appearing with poor peripheral perfusion, he is not grossly edematous however has evidence of central volume overload with crackles and tachypnea as well as tachycardia. His mentation is adequate and blood pressure is maintained. EKG demonstrates sinus tachycardia, normal axis and intervals, there is nonspecific ST segment abnormalities, no STEMI. Labs with no leukocytosis, hemoglobin is significantly increased from prior though recent prior was 5 months ago. Metabolic panel with normal electrolytes and preserved renal function. Initial troponin elevated with repeat pending. BNP is well above patient's baseline. TSH elevated with pending free T4. Viral panel PCR negative. Lactic acid is negative. Overall relatively surprising lab results given the clinical appearance. Chest x-ray appears to show significant volume overload with pulmonary vascular congestion, do not appreciate focal lobar consolidation or pneumothorax. Initial treatment given diminished lung sounds and history of smoking with albuterol however this made patient more tachypneic. Patient was placed on BiPAP and clinically had improvement. He appears significantly more comfortable. For concern of acute decompensated heart failure shortly after BiPAP patient given Lasix and initiated on nitroglycerin drip. Patient blood pressure mildly downtrending and drip was paused. He did appear to have some therapeutic effect though and we will continue to monitor. Patient has elevated D-dimer and sent for CT imaging. Given overall illness as well as abdominal distention reported by patient CT abdomen and pelvis included with CTA chest. CT results pending at time of discussion with hospitalist. We will keep the patient in the ED pending results. Upon my review patient has pleural effusions, he does have pulmonary vascular congestion, I do not appreciate any large central pulmonary emboli, no large pneumothorax, no free air in the abdomen. Most likely etiology of patient's symptoms is acute decompensated heart failure in the context of medication noncompliance. The results of ED evaluation were discussed with the patient including plan for admission due to requirement for level of care not available if discharged to prevent significant worsening/deterioration. Patient agreeable with plan. Discussed with hospitalist service who was agreeable to admit patient. Medical Records I reviewed the patient's medical records. Lab Data I reviewed the patient's lab results. 11/25/22 02:20 11/25/22 02:20 Labs/Radiology: Radiology Impressions Chest X-Ray 11/25/22 02:00 IMPRESSION: 1. Findings likely representing CHF/pulmonary edema, see above discussion. 2. Other findings discussed above. Chest/Abdomen/Pelvis CT 11/25/22 03:23 IMPRESSION: 1. No CTA evidence of pulmonary embolism or thoracic aortic aneurysm. 2. Medium-sized right and small left pleural effusions with associated atelectasis. Suspected mild pulmonary vascular congestion/pulmonary edema. 3. [place] cardiomegaly. 4. Unchanged severe T3 vertebral body compression fracture. IMPRESSION: 1. Sutherland catheter in bladder. Moderate bladder wall thickening seen, suspicious for cystitis. Recommend correlation with urinalysis findings. 2. Mildly distended gallbladder. Suspected mild gallbladder sludge. Mild gallbladder wall prominence. Sonography may be performed for complete assessment. 3. Some nonspecific mildly distended loops of small bowel in the abdomen. 4. Other chronic findings, as noted above. COMMENTS: Consistent with the [place] [employer]'s Incidental Findings Committee white paper (J Am Ashvin Radiol 2018): Any incidental renal lesion less than 1 cm or classified as too small to characterize, or any incidental cystic renal lesion characterized as simple-appearing, is likely benign. No follow-up imaging is recommended for these lesions per consensus recommendations based on imaging criteria. Laboratory Results WBC 8.4 10^3/uL (4.0-10.0) 11/25/22 02:20 RBC 5.17 10^6/uL (4.1-5.3) 11/25/22 02:20 Hgb 15.5 g/dL (11.7-16.6) 11/25/22 02:20 Hct 48.7 % (42.0-52.0) 11/25/22 02:20 MCV 94.2 fl (80-94) H 11/25/22 02:20 MCH 30.0 pg (28.0-34.0) 11/25/22 02:20 MCHC 31.8 g/dL (30.0-36.0) 11/25/22 02:20 RDW 14.5 % (12.1-15.1) 11/25/22 02:20 Plt Count 232 10^3/cmm (130-400) 11/25/22 02:20 MPV 12.4 fL (7.4-10.4) H 11/25/22 02:20 Neut % (Auto) 63.3 % 11/25/22 02:20 Lymph % (Auto) 24.6 % 11/25/22 02:20 Reagan % (Auto) 10.1 % 11/25/22 02:20 Eos % (Auto) 1.2 % 11/25/22 02:20 Baso % (Auto) 0.6 % 11/25/22 02:20 Neut # (Auto) 5.34 10^3/uL (1.8-7.7) 11/25/22 02:20 Lymph # (Auto) 2.1 10^3/uL (0.8-4.8) 11/25/22 02:20 Reagan # (Auto) 0.9 10^3/uL (0.2-0.9) 11/25/22 02:20 Eos # (Auto) 0.1 10^3/uL (0.0-0.8) 11/25/22 02:20 Baso # (Auto) 0.1 10^3/uL (0.0-0.1) 11/25/22 02:20 Nucleated RBC % (auto) 0 % 11/25/22 02:20 Nucleated RBCs # 0.0 /100WBC 11/25/22 02:20 D-Dimer 1.74 ug/mIFEU (0-0.59) H 11/25/22 02:20 Specimen Type Arterial 11/25/22 02:42 Sample Site Radial, right 11/25/22 02:42 ABG pH 7.37 (7.35-7.45) 11/25/22 02:42 ABG pCO2 37.7 mmHg (35-45) 11/25/22 02:42 ABG pO2 60.9 mmHg (80.0-100.0) L 11/25/22 02:42 ABG HCO3 21.7 mmol/L (22-26) L 11/25/22 02:42 ABG Base Excess -3.1 mmol/L (-2.0-2.0) L 11/25/22 02:42 Parker Test Pos 11/25/22 02:42 Hematocrit 49.3 % (42-52) 11/25/22 02:42 Hgb O2 Saturation 88.3 % (95-100) L 11/25/22 02:42 Carboxyhemoglobin 3.0 %THgb (0.4-20.1) 11/25/22 02:42 Methemoglobin 0.5 % (0.4-1.5) 11/25/22 02:42 Total Hemoglobin 16.1 g/dL (14-18) 11/25/22 02:42 O2 Delivery Device None 11/25/22 02:42 Sueding Machine Tender ID [email or web address] 11/25/22 02:42 Sodium 138 mmol/L (136-145) 11/25/22 02:20 Potassium 4.8 mmol/L (3.5-5.1) 11/25/22 02:20 Chloride 105 mmol/L (98-107) 11/25/22 02:20 Carbon Dioxide 20 mmol/L (22-29) L 11/25/22 02:20 Anion Gap 17.8 (5-19) 11/25/22 02:20 BUN 13 mg/dL (6-20) 11/25/22 02:20 Creatinine 0.6 mg/dL (0.7-1.2) L 11/25/22 02:20 GFR Calculation 139.9 mL/min (90-130) H 11/25/22 02:20 Glucose 135 mg/dL (65-115) H 11/25/22 02:20 Calculated Osmolality 288 mOsm/kg (285-295) 11/25/22 02:20 Lactic Acid 2.0 mmol/L (0.5-2.2) 11/25/22 02:20 Calcium 8.8 mg/dL (8.5-10.5) 11/25/22 02:20 Total Bilirubin 0.6 mg/dL (0.15-1.2) 11/25/22 02:20 AST 22 U/L (0-40) 11/25/22 02:20 ALT 21 U/L (0-41) 11/25/22 02:20 Alkaline Phosphatase 122 U/L (40-130) 11/25/22 02:20 Troponin T Baseline 30 ng/L (0-15) H 11/25/22 02:20 NT-Pro-B Natriuret Pep 42179 pg/mL (0-125) H 11/25/22 02:20 Total Protein 5.8 g/dL (6.6-8.7) L 11/25/22 02:20 Albumin 3.5 g/dL (3.5-5.2) 11/25/22 02:20 Globulin 2.3 g/dL (1.3-4.6) 11/25/22 02:20 TSH 9.16 uIU/mL (0.27-4.20) H 11/25/22 02:20 Nasal Influ A H1 2008 PCR Not detected (NOT DETECT) 11/25/22 02:20 Adenovirus (PCR) Not detected (NOT DETECT) 11/25/22 02:20 C. pneumoniae DNA (PCR) Not detected (NOT DETECT) 11/25/22 02:20 Coronavirus 229E (PCR) Not detected (NOT DETECT) 11/25/22 02:20 Human Metapneumovir PCR Not detected (NOT DETECT) 11/25/22 02:20 Influenza A (H1) PCR Not detected (NOT DETECT) 11/25/22 02:20 Influenza A (H3) PCR Not detected (NOT DETECT) 11/25/22 02:20 Influenza Type A (PCR) Not detected (NOT DETECT) 11/25/22 02:20 Influenza Type B (PCR) Not detected (NOT DETECT) 11/25/22 02:20 M. pneumoniae (PCR) Not detected (NOT DETECT) 11/25/22 02:20 Parainfluenza 1 (PCR) Not detected (NOT DETECT) 11/25/22 02:20 Parainfluenza 2 (PCR) Not detected (NOT DETECT) 11/25/22 02:20 Parainfluenza 3 (PCR) Not detected (NOT DETECT) 11/25/22 02:20 Parainfluenza 4 (PCR) Not detected (NOT DETECT) 11/25/22 02:20 RSV Type A (PCR) Not detected (NOT DETECT) 11/25/22 02:20 RSV Type B (PCR) Not detected (NOT DETECT) 11/25/22 02:20 Entero/Rhino (PCR) Not detected (NOT DETECT) 11/25/22 02:20 SARS-CoV-2 (PCR) Not detected (NOT DETECT) 11/25/22 02:20 Critical Care Time Critical Care Time: Critical Care Time: Yes Total Critical Care Time: 50 Attestation: Due to a high probability of clinically significant, possibly life threatening deterioration, the patient required my highest level of attention and preparedness to intervene emergently and I personally spent this critical care time directly and personally managing the patient. This critical care time included obtaining a history; examining the patient; pulse oximetry; ordering and review of laboratory and imaging studies; arranging urgent treatment with development of a management plan; evaluation of patient's response to treatment; frequent reassessment; and, discussions with other providers as applicable. It was exclusive of separately billable procedures. Primary system involved is cardiopulmonary Discharge Plan Discharge Patient Disposition: Admitted As Inpatient Admit Provider: Kiran Sloan Clinical Impression: Acute decompensated heart failure, Cardiomyopathy, COPD (chronic obstructive pulmonary disease), Respiratory distress, Bilateral pleural effusion Condition: Stable Coding Level of Care Code ED Ends Breakage Clerk for Joycelyn Walters
--- NOTE | 2022-11-25 01:57 | ECG_ITS ---
[facility] Test Date: 2022-11-25 Pat Name: Jonah Coffman Department: Room: Gender: Male Project Management: : 1965 Requested By: Prakash Almanza Order Number: [id number] Reading MD: KAMRAN BYRD Measurements Intervals [place] Rate: 108 P: 39 [place]: 193 QRS: 45 QRSD: 95 T: 37 QT: 393 QTc: 528 Interpretive Statements SINUS TACHYCARDIA LEFT ATRIAL ENLARGEMENT [-0.15mV P-WAVE IN V1/V2] NONSPECIFIC T-WAVE ABNORMALITY Compared to ECG 06/11/2022 16:44:51 Atrial abnormality now present T-wave abnormality now present Electronically Signed On 11-25-2022 20:33:25 CDT by KAMRAN BYRD [email or web address]
--- NOTE | 2022-11-25 02:00 | XRR_ITS ---
PROCEDURE INFORMATION: Exam: XR Chest Exam date and time: 11/25/2022 2:07 AM Age: 57 years old Clinical indication: Shortness of breath; Patient HX: C/O SOB. History of chf and copd. TECHNIQUE: Imaging protocol: Radiologic exam of the chest. Views: 1 view. COMPARISON: CR XR chest 1V portable [id number] 06/11/2022 10:48 AM FINDINGS: Lungs: Moderate diffuse bilateral lung opacities, generally in a perihilar distribution. The findings likely represent CHF/pulmonary edema. Underlying atelectasis or pneumonia in the lower lungs is not excluded. Pleural spaces: No visible pneumothorax. No definite pleural fluid, although small pleural effusions might not be visible on an image of this technique. Heart/Mediastinum: Moderate cardiomegaly, similar to prior exam. Bones/joints: Old bilateral rib fractures again noted. XR/XR chest 1V portable [id number] IMPRESSION: 1. Findings likely representing CHF/pulmonary edema, see above discussion. 2. Other findings discussed above.
[2022-11-25] MEDS: ipratropium-albuterol 3 mL Neb INHALATION ×4 (02:29→20:12)
[2022-11-25] MEDS: FUROsemide 10 mg/mL SDV 4mL 40 MG IVP ×2 (02:45→15:44)
[2022-11-25 02:49] LABS: ABG PCO2 37.7 mmHg (35-45); ABG PH Result 7.37 (7.35-7.45); Arterial Blood Gas Hematocrit 49.3 % (42-52); Base Excess ABG -3.1 mmol/L (-2.0-2.0); Blood Gas Allen Test Pos; Blood Gas Sample Site Radial, right; Blood Gas Sample Type Arterial; HCO3 ABG 21.7 mmol/L (22-26); HGB O2 Sat 88.3 % (95-100); Methemoglobin 0.5 % (0.4-1.5); PO2 ABG 60.9 mmHg (80.0-100.0); Total Hemoglobin 16.1 g/dL (14-18)
--- NOTE | 2022-11-25 02:50 | PC.NURSE ---
RN AT BEDSIDE PT DIAPHORETIC WITH SEVERE SHORTNESS OF BREATH IN TRIPOD POSITION. NOTIFIED MD ORDERS RECEIVED. PT NOTIFIED FOR BIPAP.
[2022-11-25 02:54] LABS: Troponin(5th) Baseline 30 ng/L (0-15)
[2022-11-25 02:56] LABS: Basophils # 0.1 10^3/uL (0.0-0.1); Basophils % 0.6 %; Eosinophils # 0.1 10^3/uL (0.0-0.8); Eosinophils % 1.2 %; Hematocrit 48.7 % (42.0-52.0); Hemoglobin 15.5 g/dL (11.7-16.6); Lymphocytes # 2.1 10^3/uL (0.8-4.8); Lymphocytes % 24.6 %; Mean Corpuscular HGB Conc 31.8 g/dL (30.0-36.0); Mean Corpuscular Volume 94.2 fl (80-94); Mean Platelet Volume 12.4 fL (7.4-10.4); Monocytes # 0.9 10^3/uL (0.2-0.9); Monocytes % 10.1 %; Neutrophils # 5.34 10^3/uL (1.8-7.7); Neutrophils % 63.3 %; Nucleated Red Blood Cells % 0 %; Platelet Count 232 10^3/cmm (130-400); Red Blood Count 5.17 10^6/uL (4.1-5.3); Red Cell Distribution Width 14.5 % (12.1-15.1); White Blood Count 8.4 10^3/uL (4.0-10.0)
[2022-11-25 03:03] LABS: D Dimer 1.74 ug/mIFEU (0-0.59)
[2022-11-25 03:08] LABS: Alanine Aminotransferase 21 U/L (0-41); Albumin Level 3.5 g/dL (3.5-5.2); Alkaline Phosphatase 122 U/L (40-130); Anion Gap 17.8 (5-19); Aspartate Amino Transferase 22 U/L (0-40); Blood Urea Nitrogen 13 mg/dL (6-20); Calcium 8.8 mg/dL (8.5-10.5); Carbon Dioxide 20 mmol/L (22-29); Chloride 105 mmol/L (98-107); Globulin 2.3 g/dL (1.3-4.6); Glomerular Filtration Rate 139.9 mL/min (90-130); Glucose 135 mg/dL (65-115); NT Pro B Type Natriuretic Pept 11329 pg/mL (0-125); Osmolality Calculated 288 mOsm/kg (285-295); Potassium 4.8 mmol/L (3.5-5.1); Sodium 138 mmol/L (136-145); Total Bilirubin 0.6 mg/dL (0.15-1.2); Total Protein 5.8 g/dL (6.6-8.7)
[2022-11-25] MEDS: nitroglycerin drip 50 MG/250 ML PREMIX IV (03:12)
[2022-11-25 03:22] LABS: Creatinine Clr Calc Pharmacy 149.5095
--- NOTE | 2022-11-25 03:23 | CTR_ITS ---
PROCEDURE INFORMATION: Exam: CTA Chest With Contrast Exam date and time: 11/25/2022 3:57 AM Age: 57 years old Clinical indication: Abnormal findings; Abnormal lab test; Other: N/a; Bloating; Abnormal diagnostic tests; Elevated d-dimer; Shortness of breath; Prior surgery; Surgery type: Hernia repair. Patient HX: Severe SOB with hypoxia. Abd distention. D dimer of 1.74. History of copd, chf, and afib. Requiring bipap and full monitor with nitro drip running. ; Additional info: Cp, SOB, abd distention, elevated ddimer TECHNIQUE: Imaging protocol: Computed tomographic angiography of the chest with contrast. 3D rendering (Not supervised by radiologist): MIP and/or 3D reconstructed images were created by the technologist. Radiation optimization: All CT scans at this facility use at least one of these dose optimization techniques: automated exposure control; mA and/or kV adjustment per patient size (includes targeted exams where dose is matched to clinical indication); or iterative reconstruction. Contrast material: OMNI 350; Contrast volume: 100 ml; Contrast route: INTRAVENOUS (IV); REPORTING DATA: Count of CT and Cardiac NM exams in prior 12 months: This patient has received [address] and 0 known cardiac nuclear medicine studies in the 12 months prior to the current study. COMPARISON: CT angio chest PE protcl [id number] 06/10/2022 10:02 PM RADIATION DOSE METRICS: Total DLP (mGy-cm): 1730.22 FINDINGS: Pulmonary arteries: No segmental pulmonary embolism seen. The main, right and left pulmonary arteries appear normal. Aorta: Poor contrast opacification of the thoracic aorta on the CTA chest images, likely related to cardiac function. This limits assessment for thoracic aortic dissection P No thoracic aortic aneurysm. Trachea: The central airway is normal. Lungs: Medium-sized right and small left pleural effusions are seen. Associated bilateral upper lobe and lower lobe compressive atelectasis. Mild right upper lobe and lower lobe regions of platelike atelectasis. Mild left lower lobe small regions of atelectasis. Mild central pulmonary vascular prominence, suggestive of mild pulmonary edema. No interlobular septal thickening or honeycombing seen to suggest interstitial lung disease on CT. Pleural spaces: No pneumothorax. Heart: [id number] cardiomegaly. Poor contrast opacification of the left side of the heart. Minimal left coronary arterial atherosclerotic vascular calcifications. No pericardial effusion. Lymph nodes: Enlarged right paratracheal 1.2 x 1.1 cm lymph node. Some prominent subcentimeter prevascular, pretracheal and hilar lymph nodes. Bones/joints: No acute osseous abnormalities. Unchanged severe wedge compression fracture of the T3 vertebral body with 90% anterior vertebral body height loss. Unchanged kyphotic curvature of the upper cervical spine. Soft tissues: Unremarkable. PROCEDURE INFORMATION: Exam: CT Abdomen And Pelvis With Contrast Exam date and time: 11/25/2022 3:57 AM Age: 57 years old Clinical indication: Abnormal findings; Abnormal lab test; Other: N/a; Bloating; Abnormal diagnostic tests; Elevated d-dimer; Shortness of breath; Prior surgery; Surgery type: Hernia repair. Patient HX: Severe SOB with hypoxia. Abd distention. D dimer of 1.74. History of copd, chf, and afib. Requiring bipap and full monitor with nitro drip running. ; Additional info: Cp, SOB, abd distention, elevated ddimer TECHNIQUE: Imaging protocol: Computed tomography of the abdomen and pelvis with contrast. Radiation optimization: All CT scans at this facility use at least one of these dose optimization techniques: automated exposure control; mA and/or kV adjustment per patient size (includes targeted exams where dose is matched to clinical indication); or iterative reconstruction. Contrast material: OMNI 350; Contrast volume: 100 ml; Contrast route: INTRAVENOUS (IV); REPORTING DATA: Count of CT and Cardiac NM exams in prior 12 months: This patient has received [address] and 0 known cardiac nuclear medicine studies in the 12 months prior to the current study. COMPARISON: CT angio chest PE [facility] [id number] 06/10/2022 10:02 PM RADIATION DOSE METRICS: Total DLP (mGy-cm): 1730.22 FINDINGS: Liver: Normal liver attenuation. No mass. Gallbladder and bile ducts: Mildly distended gallbladder. Suspected mild gallbladder sludge. Mild gallbladder wall prominence. Sonography may be performed for complete assessment. No biliary ductal dilatation. Pancreas: Some atrophic changes of the pancreas are seen. No ductal dilatation. Spleen: Normal splenic parenchymal attenuation. No splenomegaly. Adrenal glands: Normal CT appearance of the adrenals. No mass. Kidneys and ureters: The corticomedullary phase enhancing kidneys show no contour deforming renal masses. Left kidney mid zone 0.3-0.4 cm cyst is incidentally seen. No hydronephrosis or ureterectasis. Stomach and bowel: The non-contrast opacified stomach is not well distended with relative gastric fold prominence. Assessment is limited. The noncontrast opacified small bowel loops show some nonspecific mildly distended fluid-filled loops of distal small bowel. These are nonspecific findings that can be seen with adynamic ileus or enteritis. The noncontrast opacified loops of colon show mild to moderate fecal material in the ascending colon. Mild transverse and descending colonic fecal material is seen. The sigmoid colon is not well distended, limiting assessment. The lack of orally administered contrast material limits assessment. Appendix: No appendix is specifically identified. No CT evidence of fluid collections or inflammatory stranding adjacent to the cecum. Intraperitoneal space: No abdominal ascites. No free air. Vasculature: No abdominal aortic aneurysm. Minimal atherosclerotic vascular calcifications. Inferior vena cava and portal vein appear unremarkable. Lymph nodes: No enlarged lymph nodes. Urinary bladder: Sutherland catheter in bladder. Moderate bladder wall prominence with perivesicular fat stranding. This is suspicious for cystitis. Recommend correlation with urinalysis findings. Reproductive: Unremarkable as visualized. Bones/joints: No acute osseous abnormality seen. Unchanged mild superior endplate compression fracture of the L1 vertebral body is seen. Severe degenerative disc disease changes with disc space narrowing are seen at the L5-S1 level. Medium-sized disc osteophyte complex is seen with mild spinal canal narrowing. Associated severe degenerative facet disease changes with moderate bilateral foraminal stenosis. Soft tissues: Unremarkable. CT/CT angio chest w abd pel w con IMPRESSION: 1. No CTA evidence of pulmonary embolism or thoracic aortic aneurysm. 2. Medium-sized right and small left pleural effusions with associated atelectasis. Suspected mild pulmonary vascular congestion/pulmonary edema. 3. [id number] cardiomegaly. 4. Unchanged severe T3 vertebral body compression fracture. IMPRESSION: 1. Sutherland catheter in bladder. Moderate bladder wall thickening seen, suspicious for cystitis. Recommend correlation with urinalysis findings. 2. Mildly distended gallbladder. Suspected mild gallbladder sludge. Mild gallbladder wall prominence. Sonography may be performed for complete assessment. 3. Some nonspecific mildly distended loops of small bowel in the abdomen. 4. Other chronic findings, as noted above. COMMENTS: Consistent with the [place] [employer]'s Incidental Findings Committee white paper (J Am Ashvin Radiol 2018): Any incidental renal lesion less than 1 cm or classified as too small to characterize, or any incidental cystic renal lesion characterized as simple-appearing, is likely benign. No follow-up imaging is recommended for these lesions per consensus recommendations based on imaging criteria.
--- NOTE | 2022-11-25 04:00 | ECG_ITS ---
[facility] Test Date: 2022-11-25 Pat Name: Jonah Coffman Department: Room: Gender: Male Hydro Operator: : 1965 Requested By: Prakash Almanza Order Number: [id number] Reading MD: KAMRAN BYRD Measurements Intervals Jensen Rate: 112 P: 137 OK: 182 QRS: 141 QRSD: 101 T: 121 QT: 293 QTc: 401 Interpretive Statements SINUS TACHYCARDIA ARM LEADS REVERSED [INVERTED P AND QRS IN I] ABNORMAL RHYTHM ECG Compared to ECG 11/25/2022 01:57:28 Atrial abnormality no longer present T-wave abnormality no longer present Electronically Signed On 11-25-2022 20:33:14 CDT by KAMRAN BYRD [id number]
[2022-11-25 04:01] LABS: Thyroid Stimulating Hormone 9.16 uIU/mL (0.27-4.20)
[2022-11-25] MEDS: iohexol 350 mg/mL 500 mL Btl (per mL) IV (04:09)
--- NOTE | 2022-11-25 04:14 | PC.NURSE ---
MD GAVE ORDERS TO PAUSE NITRO. NITRO PAUSE AT THIS TIME.
[2022-11-25 04:30] LABS: Adenovirus Not Detected (NOT DETECT); Chlamydia Pneumoniae Not Detected (NOT DETECT); Coronavirus 229E,HKU1,NL63,OC4 Not Detected (NOT DETECT); Human Metapneumovirus Not Detected (NOT DETECT); Human Rhinovirus/Enterovirus Not Detected (NOT DETECT); Influenza A Not Detected (NOT DETECT); Influenza A H1 Not Detected (NOT DETECT); Influenza A H1-2009 Not Detected (NOT DETECT); Influenza A H3 Not Detected (NOT DETECT); Influenza B Not Detected (NOT DETECT); Mycoplasma Pneumoniae Not Detected (NOT DETECT); Parainfluenza Virus Type 1 Not Detected (NOT DETECT); Parainfluenza Virus Type 2 Not Detected (NOT DETECT); Parainfluenza Virus Type 3 Not Detected (NOT DETECT); Parainfluenza Virus Type 4 Not Detected (NOT DETECT); Respiratory Syncytial Virus A Not Detected (NOT DETECT); Respiratory Syncytial Virus B Not Detected (NOT DETECT); SARS-COV-2 Not Detected (NOT DETECT)
[2022-11-25] MEDS: cefTRIAXone 2,000 MG in sodium chloride 0.9% (plus) 50 ML 100 MG IV (05:17)
[2022-11-25 05:36] LABS: Troponin 5 2HR 26.48 ng/L (0-15)
--- NOTE | 2022-11-25 05:39 | PC.NURSE ---
RN AND MD AT BEDSIDE. PT WANTS CYNTHIA ATKINS TO BE THE PERSON NOTIFIED HER NUMBER IS [phone].
--- NOTE | 2022-11-25 05:40 | US_ITS ---
WS: [id number] RIGHT UPPER QUADRANT ULTRASOUND HISTORY: abnormal gallbladder on ct, SIRS COMPARISON: CT 11/25/2022 Liver: 15.6 cm in length. Normal size liver and echogenicity. No bile duct dilatation or mass. Portal Vein: Normal hepatopetal flow with monophasic waveform. Gallbladder: Normally distended gallbladder with a small amount of sludge. The gallbladder wall is di ffusely thickened with a small amount of fluid. No stones are identified. CBD: 0.4 cm Pancreas: Completely obscured by bowel gas. Right kidney: 10.9 cm in length. Normal size and echogenicity. No hydronephrosis or mass. Aorta and IVC: Unremarkable abdominal aorta and IVC. Very small amount of free fluid in the abdomen. Small RIGHT pleural effusion. US/US gall bladder [id number] IMPRESSION: 1. Abnormal gallbladder. Diffuse gallbladder wall thickening with small amount of pericholecystic fluid. No gallstones identified. Acalculous cholecystitis v ersus abnormal gallbladder related to hepatocellular disease. 2. No bile duct dilatation. 3. Nonvisualization of the pancreas. 4. Small amount of ascites and small RIGHT pleural effusion.
--- NOTE | 2022-11-25 05:43 | PC.NURSE ---
REPORT GIVEN TO BETHANY IN ICU AT THIS TIME
[2022-11-25 05:47] LABS: Amphetamines Screen Urine Positive (Negative); Barbiturates Screen Urine Negative (Negative); Benzodiazepines Screen Urine Negative (Negative); Cocaine Screen Urine Negative (Negative); Opiate Screen Urine Negative (Negative); PCP Screen Urine Negative (Negative); THC Screen Urine Negative (Negative)
[2022-11-25 05:55] LABS: Troponin 5 2HR Delta -3.52 ABS# (0-10)
--- NOTE | 2022-11-25 05:56 | P.HP_ITS ---
Providers/Chief Complaint Admitting Physician: Kiran Sloan Chief Complaint: difficulty breathing History of Present Illness 57-year-old gentleman with history of nonischemic cardiomyopathy, previously EF noted 33% during admission with CHF back in June 2022, was referred for follow-up with cardiology, but I do not see that he had followed up, presented to ER with generalized weakness, shortness of breath, lethargy, reportedly had stopped taking his medications 3 weeks ago. He is currently not staying at home, has been staying with his friends and states that his medications were left at home which is why he cannot take them. Shortness of breath has been gradually progressive over the last week to 10 days. He is lethargic, falls asleep easily, due to this history is difficult, mostly obtained from ER physician and documentation. In ER he is found to have sinus tachycardia 108- 111, tachypnea 22-29 on presentation, without leukocytosis, temperature not recorded but reported afebrile, requested to be confirmed, ABG 7.37/37.7/60.9/21.7. D-dimer 1.74. Baseline troponin 30. NT proBNP 11,329. TSH 9.16. Influenza PCR and respiratory viral panel negative. Urine tox screen positive for amphetamines. He reports that he still smokes. He reports also intermittently uses amphetamine, last use was a few days ago. States that he snorts, does not inject. Names his mother Georgie Coffman who lives in [facility] as surrogate decision- maker in case he could not make his own decisions. We were able with his help to get her phone number from his contact list which was documented by his nurse. In ER after initial lack of success with albuterol nebulization placed on BiPAP, given Lasix. CT chest abdomen pelvis with contrast was ordered and pending. Review of Systems Const: Reports: fatigue; Denies: fever(s), chills, body aches or malaise Eyes: Denies: change in vision, eye discomfort or eye redness ENMT: Denies: throat pain, oral sores or ear or mastoid pain Card: Reports: chest pain; Denies: edema, pre-syncope or dyspnea on exertion Resp: Denies: dyspnea, productive cough, non-productive cough, change in phlegm color or hemoptysis GI: Denies: abdominal pain, nausea, vomiting, diarrhea, constipation, hematochezia or melena : Reports: difficulty urinating (Sometimes); Denies: flank pain, urinary frequency or hematuria Musc: Denies: joint swelling Skin/Breast: Denies: rash or new lesions Neuro: Denies: numbness in extremities or weakness in extremities Medications/Allergies Home Medications Medication Instructions Recorded Confirmed Last Taken Type budesonide-formoterol HFA 80 2 puff inhalation BID 06/11/22 06/11/22 Unknown History mcg-4.5 mcg/actuation aerosol inhaler albuterol sulfate 90 mcg/actuation 2 inh inhalation Q8H PRN shortness 06/17/22 Unknown Rx aerosol inhaler of breath or wheezing #8.5 grams apixaban 5 mg tablet (Eliquis) 5 mg PO BID #120 tabs 06/17/22 Unknown Rx digoxin 250 mcg (0.25 mg) tablet 250 mcg PO DAILY #30 tabs 06/17/22 Unknown Rx furosemide 40 mg tablet (Lasix) 60 mg PO BID #60 tabs 06/17/22 Unknown Rx levothyroxine 25 mcg tablet 50 mcg PO DAILY #60 tabs 06/17/22 06/11/22 Unknown Rx metolazone 2.5 mg tablet 2.5 mg PO DAILY #30 tabs 06/17/22 Unknown Rx potassium chloride 10 mEq 10 meq PO BID #60 tabs 06/17/22 Unknown Rx tablet,extended release Allergies Allergy/AdvReac Type Severity Reaction Status Date / Time gabapentin Allergy Unknown Verified 06/24/22 08:33 pregabalin [From Lyrica] Allergy Unknown Verified 06/24/22 08:33 PFSH Acute PFSH: Medical History Acute exacerbation of CHF (congestive heart failure) Atrial fibrillation with RVR BiPAP (biphasic positive airway pressure) dependence CHF (congestive heart failure) COPD (chronic obstructive pulmonary disease) Hypokalemia Pleural effusion Reduced ejection fraction concurrent with and due to acute heart failure Sleep apnea Surgical History H/O hernia repair History of appendectomy Family History Other No significant family history Social History Smoking and tobacco status: current every day smoker Alcohol intake: never Substance/Drug Use: current Substance/Drug use frequency: Special occassions/op portunity only Substance/Drug use type: Amphetamines Other substance/drug use details: Snorting Household members: friend(s) Marital status: / Vitals/I&O/Wt Last Vital Signs Pulse 111 H 11/25/22 05:05 Resp 19 H 11/25/22 05:05 BP 146/112 11/25/22 05:00 Pulse Ox 100 11/25/22 05:05 O2 Del Method 11/25/22 04:10 FiO2 30 11/25/22 04:10 11/24/22 11/24/22 11/25/22 14:59 22:59 06:59 Intake Total 1.525 / 1.525 Output Total 2600 / 2600 Balance -2598.475 / -2598.475 Weight last 48 hrs Weight 83.915 kg Physical Exam Const: COMMON NORMALS: patient oriented x3 GENERAL APPEARANCE: cooperative NUTRITIONAL APPEARANCE: obese ORIENTATION/CONSCIOUSNESS: Yes lethargic HENMT: COMMON NORMALS: oropharynx normal Neck/C-Spine: COMMON NORMALS: no JVD Resp: COMMON NORMALS: normal respiratory effort and clear to auscultation bilaterally AUSCULTATION: clear to auscultation bilaterally Cardio: COMMON NORMALS: no JVD, regular rhythm, S1 normal heart sound present, S2 normal heart sound present and No murmurs present (Cardio) RHYTHM: regular rhythm HEART SOUNDS: S1 normal heart sound present and S2 normal heart sound present GI: COMMON NORMALS: Normal to inspection, nondistended, normoactive bowel sounds present, Soft to palpation and non-tender PALPATION: Yes Soft to palpation Extremity: COMMON NORMALS: no joint enlargement and no pedal edema Neuro: COMMON NORMALS: patient oriented x3 and moves all extremities S ENSORIUM/ORIENTATION: Yes alert Skin: OTHER: Chronic stasis dermatitis of bilateral LE Urinary Catheter Management: Sutherland: Cath Placed During This Visit: yes Urinary Catheter Date of Insertion: 11/25/22 Urinary Catheter Time of Insertion: 02:46 Data 11/25/22 02:20 11/25/22 02:20 A&P Assessment and plan (1) Acute encephalopathy: Acute encephalopathy of unclear etiology. Urine positive for amphetamines. He does report use of amphetamines, although states last time was several days ago. Unclear whether there may be a good intoxication, possibly withdrawal, or encephalopathy due to other cause. Possibly secondary to respiratory failure. Additionally concern for possible progression/worsening of congestive heart failure/Low output failure, although he is maintaining blood pressure making low output failure less likely. Will additionally assess with TTE. Will assess CT head. Monitor for any withdrawal symptoms from amphetamine. Supportive care at this time. He is oriented and has insight and judgment intact at the moment. Has trouble staying awake. He is tolerating BiPAP so far. N.p.o. for now with sips and meds only. Please reevaluate. In case could not make his own decisions, names his mother as surrogate decision-maker. (2) Respiratory failure: Continue BiPAP support. RT eval. Treat CHF exacerbation. Noted pleural effusions, should diuresis. SIRS, although no suggestion of pneumonia. Continue IV Lasix 40 mg IV twice daily, monitor I&O. Weights. Chemistry requested for electrolytes. Follow-up magnesium requested. Sutherland catheter for intake and output measurement. TTE. (3) SIRS (systemic inflammatory response syndrome): Noted marked bladder wall thickening suspicious for cystitis. Possible UTI. Continue Rocephin. Follow-up requested UA with reflex to culture. Follow-up blood culture. (4) Goals of care, counseling/discussion: CODE STATUS discussion, he would like to be full code. Plan Unchanged severe T3 vertebral body compression fracture Amphetamine use disorder: Please discuss with him once mental status improves, offer rehabilitation. Elevated TSH: Free T4 pending. Please follow-up. Distended gallbladder on abdominal imaging. No abdominal pain at this time. Reassessment liver parameters requested. Abnormal D-dimer: Assess lower extremity duplex. No PE on CTA. COPD: Does not appear to be currently in exacerbation. OZ: Was referred for sleep study last admission, unclear that he has attended this. Pleural effusion: Reassess for improvement/resolution. A-fib with RVR, on anticoagulation. Switch to heparin drip for now in case he requires any interventions, resume oral medication once able. Other medical problems. Discussed with ER physician. ER documentation reviewed. Attestations Medical Necessity Statement*: Admission of over 2 midnights is going to be nee ded for assessment and management of discomfort to receive chest, respiratory failure acute encephalopathy, SIRS. Diagnoses Acute encephalopathy G93.40 Respiratory failure J96.90 SIRS (systemic inflammatory response syndrome) R65.10 Goals of care, counseling/discussion Z71.89
--- NOTE | 2022-11-25 06:10 | CT_ITS ---
WS: [id number] CT HEAD NONCONTRAST HISTORY: lethargic TECHNIQUE: Contiguous axial imaging performed through the brain in 2.5 mm imaging. Bone and soft tiss ue windows. Sagittal and coronal reformats reviewed. All CT scans at [facility] use at least one of these dose optimization techniques: automated exposure control; mA and/or kV adjustment per pa tient size (includes targeted exams where dose is matched to clinical indication); or iterative recon struction. DLP: 1186.18 mGy.cm COMPARISON: None available. No acute intracranial hemorrhage, midline shift or mass effect. Mild atrophy and small vessel ischemic disease. There are small bilateral lacunar infarcts in the bas al ganglia. No acute area of sulcal effacement. Ventricles: Normal size with no hydrocephalus. No inferior displacement of the cerebellar tonsils. Paranasal sinuses: Mild mucoperiosteal thickening RIGHT maxillary sinus. Mastoid air cells: Well pneumatized. Calvarium and scalp: Skull is intact with no soft tissue edema or swelling. CT/CT head wo con* [id number] IMPRESSION: 1. No acute intracranial hemorrhage or edema. 2. Mild atrophy and small vessel ischemic disease with small remote bilateral basal ganglia lacunar infarcts.
--- NOTE | 2022-11-25 06:10 | USCV_ITS ---
Jonah Coffman Age: 57 Gender: M : 1965 Exam Date: 11/25/2022 06:23 Ordering Phys: Kiran Sloan MD Technologist: ADAM Exam Location: [facility] [place] Indication: CHRONIC HEART FAILURE BP: 135 / 108 HR: 107 Rhythm: Sinus Technical Quality: Adequate MEASUREMENTS (Male / Female) Normal Values 2D ECHO LVOT Diameter 2.0 cm LV Ejection Fraction MOD 2C 18.7 % LV Ejection Fraction 2C AL 19.7 % LA Diameter 3.9 cm LA Width 3.4 cm LA Height 6.7 cm RA Width 4.3 cm RA Height 4.7 cm Aorta at Sinotubular Diameter 2.2 cm IVC Diameter 2.3 cm M-MODE Aortic Annulus Diameter 3.1 cm LA Ao Ratio MM 1.3 MV E Point Septal Separation 1.5 cm DOPPLER AV Peak Velocity 123.0 cm/s LVOT Peak Velocity 76.0 cm/s AV Area Cont Eq vti 2.1 cm squared AV Area Cont Eq pk 1.9 cm squared MV Peak Velocity 101.0 cm/s MV Area PHT 4.3 cm squared MV E' Velocity 56.0 cm/s Mitral E to MV E' Ratio 11.2 Mitral E to LV E' Lateral Ratio 9.6 Mitral E to LV E' Septal Ratio 13.7 TR Peak Velocity 253.7 cm/s TR Peak Gradient 25.7 mmHg TR Mean Velocity 201.6 cm/s TR Mean Gradient 17.1 mmHg TR Velocity Time Integral 94.1 cm TV Peak E Velocity 77.0 cm/s Right Atrial Pressure 15.0 mmHg Pulmonary Artery Systolic Pressu 40.7 mmHg PV Peak Velocity 57.0 cm/s RV Acceleration Time 0.1 s RV Ejection Time 0.2 s RV AcT/ET 0.4 FINDINGS Left Ventricle Moderately increased left ventricular cavity size. Severely decreased left ventricular systolic function. Left ventricular ejection fraction is estimated at 15 %. Severely decreased left ventricular systolic function. Grade IV/IV diastolic dysfunction (irreversible restrictive filling pattern), severely elevated filling pressures. Right Ventricle The right ventricle is normal in size and function. Right Atrium The right atrium is normal in size. Left Atrium Moderately increased left atrial size. Mitral Valve Moderately thickened mitral valve. Moderate mitral valve regurgitation. Aortic Valve Structurally normal aortic valve without significant sclerosis or stenosis. There is no aortic regurgitation. Tricuspid Valve Zytv-[id number] tricuspid valve regurgitation. Pulmonic Valve Structurally normal pulmonic valve without significant stenosis. There is no pulmonic regurgitation. Pericardium Normal pericardium without effusion. Aorta Normal ascending aorta dimension. IVC Dilated IVC with decreased respiratory variation. CONCLUSIONS 1-Moderately increased left ventricular cavity size. Severely decreased left ventricular systolic function. Left ventricular ejection fraction is estimated at 15 %. Severely decreased left ventricular systolic function. Grade IV/IV diastolic dysfunction (irreversible restrictive filling pattern), severely elevated filling pressures. 2-Moderately increased left atrial size. 3-Moderately thickened mitral valve. Moderate mitral valve regurgitation. 3-Sxed-um-moderate tricuspid valve regurgitation. 5-There is no pericardial effusion. 6-Dilated IVC with decreased respiratory variation. Balta Whitney MD (Electronically Signed) Final Date: 25 November 2022 18:03 S
--- NOTE | 2022-11-25 06:25 | USCV_ITS ---
Jonah Coffman Age: 57 Gender: M : 1965 Exam Date: 11/25/2022 06:42 Ordering Phys: Kiran Sloan MD Technologist: ADAM Exam Location: [facility] [place] Indication: SWELLING, EVAL FOR DVT HISTORY: Lower extremity swelling. PROCEDURES: Venous duplex imaging was performed in bilateral lower extremities. The following venous structures were evaluated: common femoral vein, profunda vein, proximal portion of the greater saphenous vein, superficial femoral vein, and the popliteal vein. In addition, the posterior tibial and peroneal trunk were evaluated. Serial compression, augmentation maneuvers, and spectral Doppler flow evaluation were performed. FINDINGS: Normal 2-D Doppler and augmentation and compressibility throughout the lower extremity venous structures. Additional imaging through the proximal calf veins also reveals no thrombus. Limited evaluation of the greater saphenous vein is patent with no thrombus. CONCLUSIONS No DVT bilateral lower extremities. Dr. Charo Werner DO (Electronically Signed) Final Date: 25 November 2022 07:40 S
[2022-11-25 06:48] LABS: Free T4 Free Thyroxine 1.06 ng/dL (0.82-1.77)
--- NOTE | 2022-11-25 07:46 | PC.PHAR ---
Addendum entered by Keerthi Burrows 11/25/22 08:48: medications entered are from what [facility] states they filled-notes are made in the pharmacy comments-albuterol inhaler last filled 06/17/22 30d/s has refills-digoxin 250mcg daily filled 06/17/22 30d/s has refills-[facility] filled eliquis 5mg bid 10/06/22 30ds has refills-lasix 60mg filled 06/17/22 30d/s has refills [facility]-metolazone 10/03/22 30d/s no refills at [facility]-flomax 0.4mg daily filled 10/21/22 30d/s-amiodarone 200mg daily filled 10/06/22 30d/s no refills-and kcl 10meq bid filled 06/17/22 30d.s has refills at [facility]-levothyroxine 50mcg daily written 06/17/22 but was not filled at [facility] or [facility] Original Note: pt unable to verify medications-waiting for [facility] [phone] to open to verify medications last filled
[2022-11-25 09:51] LABS: Glucose Urine UA Norm (Normal); Ketones Urine Negative (Negative); Protein Urine 2+ (Negative); Urine Appearance Bloody (CLEAR); Urine Color Yellow (Yellow)
[2022-11-25 09:52] LABS: Add Urine Microscopic? YES; Bilirubin Urine Neg (Negative); Blood Urine 3+ (Negative); Leukocyte Esterase Urine Trace (Negative); Nitrate Urine Negative (Negative); Urobilinogen Urine Norm (Negative)
[2022-11-25 09:53] LABS: pH Urine 5 (5-7)
[2022-11-25 09:56] LABS: Add Urine Culture? Yes; Bacteria Urine TRACE /hpf; RBC Urine 80-100 /hpf (0-2); Squamous Epithelial Cell Urine 0-4 /hpf (0-5)
--- NOTE | 2022-11-25 11:43 | PM.MISC ---
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
[2022-11-25] MEDS: hyDRALAzine 25 mg Tablet PO ×2 (15:44→20:39)
[2022-11-25] MEDS: apixaban 5 mg Tablet PO (17:19)
[2022-11-26] VITALS (14 sets, daily range): BP systolic 85–133; BP diastolic 56–88; PULSE 80–109; RESP 12–21; TEMP 36.4–37; O2SAT 92–97
[2022-11-26] MEDS: ipratropium-albuterol 3 mL Neb INHALATION ×4 (03:10→20:04)
[2022-11-26] MEDS: FUROsemide 10 mg/mL SDV 4mL 40 MG IVP (04:35)
[2022-11-26] MEDS: cefTRIAXone 1,000 MG in sodium chloride 0.9% (plus) 50 ML 100 MG IV (04:36)
--- NOTE | 2022-11-26 06:01 | PM.PN ---
Subjective Subjective: Patient required BiPAP overnight No active chest pain EF 15% Pharmacy note reviewed from medication reconciliation Afebrile Vitals/I&O/Wt Last Vital Signs Temp 98.6 F 11/26/22 05:00 Pulse 95 11/26/22 05:00 Resp 18 11/26/22 05:00 BP 129/87 11/26/22 05:00 Pulse Ox 97 11/26/22 05:00 O2 Del Method 11/26/22 03:10 FiO2 30 11/26/22 03:11 11/25/22 11/25/22 11/26/22 14:59 22:59 06:59 Intake Total 710 / 710 410 / 1120 360 / 1480 Output Total 1750 / 1750 2900 / 4650 1650 / 6300 Balance -1040 / -1040 -2490 / -3530 -1290 / -4820 Weight last 48 hrs Weight 96.162 kg Weight 83.915 kg Physical Exam Narrative: Awake and alert Signs of fluid overload Mild edema of legs positive S1, S2 rate able Currently on BiPAP Abdomen soft Nonfocal neuro exam Abdomen soft Plethora of skin without any signs of infection Urinary Catheter Management: Sutherland: Cath Placed During This Visit: yes Reason for Continuing Indwelling Catheter: Other Urinary Catheter Date of Insertion: 11/25/22 Urinary Catheter Time of Insertion: 02:46 Data 11/25/22 02:20 11/25/22 02:20 A&P Assessment and plan (1) Goals of care, counseling/discussion: (2) Respiratory failure: (3) Acute encephalopathy: (4) Acute decompensated heart failure: (5) Cardiomyopathy: (6) COPD (chronic obstructive pulmonary disease): (7) Respiratory distress: (8) Bilateral pleural effusion: Plan Noncompliant patient, endorses to use of methamphetamine, has not taken his medications for quite some time has been living with his friends presented with worsening of shortness of breath Acute systolic CHF exacerbation Reduced EF EF has reduced from 33% to 15% now LifeVest is indicated, considering his noncompliance, it might be a challenge Gentle diuresis Hemodynamically stable Metabolic encephalopathy related to methamphetamine abuse: Resolved Methamphetamine/recreational drug abuse He is at high risk for mortality morbidity because of his noncompliant behavior and use of drugs Methamphetamine can severely increase afterload and affect his cardiac rhythm It is cardiotoxic as well Hypoxic hypercapnic respiratory failure: Requiring BiPAP overnight Off BiPAP he requires 3 to 4 L of oxygen Cystitis: He is on ceftriaxone no active sign of sepsis Gall bladder distention, no active signs of infection or related to congestive heart failure He kept refusing his labs Full code Cardiac diet A-fib history continue Eliquis and amiodarone Holding digoxin Hypothyroid: Continue levothyroxine Attestations Medical Necessity Statement*: Continue hospitalization Diagnoses Goals of care, counseling/discussion Z71.89 Respiratory failure J96.90 Acute encephalopathy G93.40 Acute decompensated heart failure I50.9 Cardiomyopathy I42.9 COPD (chronic obstructive pulmonary disease) J44.9 Respiratory distress R06.03 Bilateral pleural effusion J90
[2022-11-26] MEDS: amlodipine 10 mg Tablet PO (08:44)
[2022-11-26] MEDS: amiodarone 200 mg Tablet PO (08:44)
[2022-11-26] MEDS: apixaban 5 mg Tablet PO ×2 (08:45→18:47)
[2022-11-26] MEDS: lisinopril 20 mg Tablet 40 MG PO (08:46)
[2022-11-26] MEDS: hyDRALAzine 25 mg Tablet PO ×2 (08:46→20:55)
[2022-11-26] MEDS: tamsulosin 0.4 mg Capsule PO (08:47)
--- NOTE | 2022-11-26 10:32 | PC.CHAP ---
Pastoral Care Encounter/Spiritual Assessment Type of Contact [] Declined combustion analyst visit [] Patient/Family/Request visit [] Outpatient visit [] Follow-up visit [] Physician referral [] Code/Alert [x] Routine visit [] Staff referral [] Actively dying [] Patient sleeping [] Family support [] [] Out of room [] Palliative care [] [x] Receiving care in room [] Pre-surgical visit [] Trauma [] Long length of stay [] ICU visit [x] Other: under doctor medial device Relational/Emotional Strength [] Patient feels connected with others/family/visitors/staff [] Distress [] Loneliness/isolation [] Abandonment Spirituality of Patient [] Person of [place] [] Attends Quaker of their [place] [] Believes in Prayer [] Reads Bible or Druze materials [] There are Spiritual issues to be addressed Ice Puller Interventions [] Prayer [] Active listening [] Non-anxious presence [] Spiritual/emotional support [] Crisis/trauma care [] Spiritual counseling [] Bereavement support [] Provided bereavement packet [] Provided Bible/devotional materials [] Provided toy/stuffed animal, coloring book to patient or family member [] Provided Communion [] Anointing/[place] [] Salvation [] Completed spiritual assessment [] Other: Impact on Illness or Injury [] Angry [] Fearful [] Anxious [] Often cries [] Exhaustion [] Unable to work [] Unable to attend buddhist [] Unable to walk/stand [] Unable to read [] Unable to drive [] Unable to eat/drink [] Unable to sleep [] Unable to be with family [] Patient intubated [] Other: Summary under doctor medial device Time spent with patient 5 mins
[2022-11-27] VITALS (15 sets, daily range): BP systolic 91–132; BP diastolic 59–85; PULSE 85–102; RESP 12–23; TEMP 36.3–36.6; O2SAT 92–98
[2022-11-27] MEDS: ipratropium-albuterol 3 mL Neb INHALATION ×4 (01:38→21:04)
[2022-11-27] MEDS: cefTRIAXone 1,000 MG in sodium chloride 0.9% (plus) 50 ML 100 MG IV (04:27)
[2022-11-27] MEDS: FUROsemide 10 mg/mL SDV 4mL 40 MG IVP (04:38)
[2022-11-27] MEDS: tamsulosin 0.4 mg Capsule PO (11:08)
[2022-11-27] MEDS: apixaban 5 mg Tablet PO ×2 (11:08→18:06)
--- NOTE | 2022-11-27 16:27 | PM.PN ---
Subjective Subjective: Patient was seen this morning, is currently having his LifeVest fitted, he continues to complain of shortness of breath, Vitals/I&O/Wt Last Vital Signs Temp 97.6 F 11/27/22 15:44 Pulse 100 11/27/22 15:44 Resp 18 11/27/22 15:44 BP 106/71 11/27/22 15:44 Pulse Ox 94 11/27/22 15:44 O2 Del Method 11/27/22 15:44 O2 Flow Rate 4 11/27/22 08:00 FiO2 25 11/27/22 13:45 11/27/22 11/27/22 11/27/22 06:59 14:59 22:59 Intake Total 670 / 3060 240 / 240 Output Total 1600 / 5650 1200 / 1200 Balance -930 / -2590 -960 / -960 Weight last 48 hrs Weight 71.123 kg Weight 79.923 kg Physical Exam Const: COMMON NORMALS: no acute distress and patient oriented x3 Resp: COMMON NORMALS: normal respiratory effort, No retractions, No use of accessory muscles and clear to auscultation bilaterally AUSCULTATION: clear to auscultation bilaterally Cardio: COMMON NORMALS: regular rate, regular rhythm, S1 normal heart sound present and S2 normal heart sound present RATE: regular rate RHYTHM: regular rhythm HEART SOUNDS: S1 normal heart sound present and S2 normal heart sound present GI: COMMON NORMALS: Normal to inspection, nondistended, normoactive bowel sounds present Extremity: NARRATIVE EXTREMITY EXAM: 1+ pitting edema Neuro: COMMON NORMALS: patient oriented x3 Psych: COMMON NORMALS: mental status grossly normal Urinary Catheter Management: Sutherland: Cath Placed During This Visit: yes Reason for Continuing Indwelling Catheter: Other Urinary Catheter Date of Insertion: 11/25/22 Urinary Catheter Time of Insertion: 02:46 Data 11/25/22 02:20 11/25/22 02:20 Micro: Microbiology 11/25/22 09:40 Urine Culture - Preliminary Urine,Clean Catch A&P Assessment and plan (1) Goals of care, counseling/discussion: (2) Respiratory failure: (3) Acute encephalopathy: (4) Acute decompensated heart failure: (5) Cardiomyopathy: (6) COPD (chronic obstructive pulmonary disease): (7) Respiratory distress: (8) Bilateral pleural effusion: Plan Noncompliant patient, endorses to use of methamphetamine, has not taken his medications for quite some time has been living with his friends presented with worsening of shortness of breath Acute systolic CHF exacerbation Reduced EF EF has reduced from 33% to 15% now Currently being fitted for LifeVest Continues to have fluid overload, 1+ pitting edema Lasix 40 IV twice daily Hemodynamically stable Need to get his labs drawn today, creatinine, potassium Metabolic encephalopathy related to methamphetamine abuse: Resolved Methamphetamine/recreational drug abuse He is at high risk for mortality morbidity because of his noncompliant behavior and use of drugs Methamphetamine can severely increase afterload and affect his cardiac rhythm It is cardiotoxic as well Hypoxic hypercapnic respiratory failure: Requiring BiPAP overnight Off BiPAP he requires 3 to 4 L of oxygen Cystitis: He is on ceftriaxone no active sign of sepsis Gall bladder distention, no active signs of infection or related to congestive heart failure He kept refusing his labs Full code Cardiac diet A-fib history continue Eliquis and amiodarone Holding digoxin Hypothyroid: Continue levothyroxine Attestations Medical Necessity Statement*: Patient requires hospitalization for acute systolic CHF exacerbation Coding Level of Care Code Acute Code for Chg Fwd Diagnoses Goals of care, counseling/discussion Z71.89 Respiratory failure J96.90 Acute encephalopathy G93.40 Acute decompensated heart failure I50.9 Cardiomyopathy I42.9 COPD (chronic obstructive pulmonary disease) J44.9 Respiratory distress R06.03 Bilateral pleural effusion J90
[2022-11-28] VITALS (12 sets, daily range): BP systolic 87–108; BP diastolic 63–75; PULSE 86–103; RESP 15–20; TEMP 36.4–36.6; O2SAT 93–98
[2022-11-28] MEDS: ipratropium-albuterol 3 mL Neb INHALATION ×4 (01:22→19:55)
--- NOTE | 2022-11-28 02:26 | PC.NURSE ---
patient refusing to wear lifevest at this time saying I don't want it to shock me in the middle of the night for no reason , also refusing telemetry
[2022-11-28] MEDS: cefTRIAXone 1,000 MG in sodium chloride 0.9% (plus) 50 ML 100 MG IV (04:17)
[2022-11-28] MEDS: potassium chloride ER 20 mEq Tablet PO (09:57)
[2022-11-28] MEDS: sacubitril/valsartan 24-26 mg Tablet 0.5 EACH PO ×2 (09:57→18:36)
[2022-11-28] MEDS: amiodarone 200 mg Tablet PO (09:58)
[2022-11-28] MEDS: apixaban 5 mg Tablet PO ×2 (09:58→18:36)
[2022-11-28] MEDS: metoprolol tartrate 25 mg Tablet 6.25 MG PO (09:58)
[2022-11-28] MEDS: tamsulosin 0.4 mg Capsule PO (09:58)
[2022-11-28 10:33] LABS: Basophils # 0.1 10^3/uL (0.0-0.1); Basophils % 0.8 %; Eosinophils # 0.1 10^3/uL (0.0-0.8); Eosinophils % 1.7 %; Hematocrit 44.5 % (42.0-52.0); Hemoglobin 14.3 g/dL (11.7-16.6); Lymphocytes # 1.7 10^3/uL (0.8-4.8); Lymphocytes % 20.1 %; Mean Corpuscular HGB Conc 32.1 g/dL (30.0-36.0); Mean Corpuscular Hemoglobin 30.2 pg (28.0-34.0); Mean Corpuscular Volume 93.9 fl (80-94); Mean Platelet Volume 12.1 fL (7.4-10.4); Monocytes % 11.6 %; Neutrophils # 5.48 10^3/uL (1.8-7.7); Neutrophils % 65.4 %; Nucleated Red Blood Cells % 0 %; Platelet Count 231 10^3/cmm (130-400); Red Blood Count 4.74 10^6/uL (4.1-5.3); Red Cell Distribution Width 14.3 % (12.1-15.1); White Blood Count 8.4 10^3/uL (4.0-10.0)
--- NOTE | 2022-11-28 10:51 | PM.PN ---
Subjective Subjective: Patient was seen this morning, he refuses to wear hi life vest during the night, discussed morbidity and mortality, he voiced understanding, he is also refused blood draws, I again had extensive discussion with him about the morbidity mortality of electrolyte abnormalities given his heart failure and the medications that were placing him on, he will allow us to try this morning, his blood pressures have been soft I discussed with cardiology in detail about patient's case, start him on low-dose Entresto, with beta-jose, monitor his heart rate for the next 24 hours hopefully can get blood work. I detailed had a discussion with patient's nonischemic cardiomyopathy, his low EF his morbidity or mortality, and the medications that were starting have significant side effects, electrolyte abnormalities, and parameters we have to watch, so that is why blood work is important, after extensive discussion with patient, he would allow us to try. I had extensive discussion with him about his low EF, his significant heart failure, however he does not seem so concerned in how severe his condition is, I have strongly discussed with him to avoid all drug use, including methamphetamines Vitals/I&O/Wt Last Vital Signs Temp 97.9 F 11/28/22 08:00 Pulse 95 11/28/22 08:00 Resp 18 11/28/22 08:00 BP 95/68 11/28/22 08:00 Pulse Ox 95 11/28/22 08:00 O2 Del Method 11/28/22 08:00 O2 Flow Rate 4 11/27/22 08:00 FiO2 25 11/28/22 08:00 11/27/22 11/28/22 11/28/22 22:59 06:59 14:59 Intake Total 360 / 600 50 / 650 Output Total 400 / 1600 400 / 2000 Balance -40 / -1000 -350 / -1350 Weight last 48 hrs Weight 74.208 kg Weight 71.123 kg Physical Exam Const: COMMON NORMALS: no acute distress and patient oriented x3 Resp: COMMON NORMALS: normal respiratory effort, No retractions, No use of accessory muscles and clear to auscultation bilaterally AUSCULTATION: clear to auscultation bilaterally Cardio: COMMON NORMALS: regular rate, regular rhythm, S1 normal heart sound present and S2 normal heart sound present RATE: regular rate RHYTHM: regular rhythm HEART SOUNDS: S1 normal heart sound present and S2 normal heart sound present GI: COMMON NORMALS: Normal to inspection, nondistended, normoactive bowel sounds present and non-tender Extremity: COMMON NORMALS: no pedal edema Neuro: COMMON NORMALS: patient oriented x3 Psych: COMMON NORMALS: mental status grossly normal Urinary Catheter Management: Sutherland: Cath Placed During This Visit: yes Reason for Continuing Indwelling Catheter: Other Urinary Catheter Date of Insertion: 11/25/22 Urinary Catheter Time of Insertion: 02:46 Data 11/28/22 10:30 11/25/22 02:20 Micro: Microbiology 11/25/22 09:40 Urine Culture - Preliminary Urine,Clean Catch A&P Assessment and plan (1) Goals of care, counseling/discussion: (2) Respiratory failure: (3) Acute encephalopathy: (4) Acute decompensated heart failure: (5) Cardiomyopathy: (6) COPD (chronic obstructive pulmonary disease): (7) Respiratory distress: (8) Bilateral pleural effusion: Plan Noncompliant patient, endorses to use of methamphetamine, has not taken his medications for quite some time has been living with his friends presented with worsening of shortness of breath Acute systolic CHF exacerbation Reduced EF EF has reduced from 33% to 15% now Advised of compliance with LifeVest, morbidity and mortality associated with noncompliance Looks euvolemic today Lasix 40 mg once daily Start metoprolol 6.25 twice daily Start Entresto, low-dose twice daily Hemodynamically stable Need to get his labs drawn today, creatinine, potassium Metabolic encephalopathy related to methamphetamine abuse: Resolved Methamphetamine/recreational drug abuse He is at high risk for mortality morbidity because of his noncompliant behavior and use of drugs Methamphetamine can severely increase afterload and affect his cardiac rhythm It is cardiotoxic as well Hypoxic hypercapnic respiratory failure: Requiring BiPAP overnight Off BiPAP he requires 3 to 4 L of oxygen Cystitis: He is on ceftriaxone no active sign of sepsis Gall bladder distention, no active signs of infection or related to congestive heart failure He kept refusing his labs Full code Cardiac diet A-fib history continue Eliquis and amiodarone Holding digoxin Hypothyroid: Continue levothyroxine Stopped lisinopril, Norvasc, hydralazine Attestations Medical Necessity Statement*: Patient requires hospitalization for acute systolic CHF Diagnoses Goals of care, counseling/discussion Z71.89 Respiratory failure J96.90 Acute encephalopathy G93.40 Acute decompensated heart failure I50.9 Cardiomyopathy I42.9 COPD (chronic obstructive pulmonary disease) J44.9 Respiratory distress R06.03 Bilateral pleural effusion J90
[2022-11-28 11:19] LABS: Blood Urea Nitrogen 14 mg/dL (6-20); Calcium 8.6 mg/dL (8.5-10.5); Carbon Dioxide 27 mmol/L (22-29); Chloride 105 mmol/L (98-107); Glomerular Filtration Rate 100.4 mL/min (90-130); Glucose 129 mg/dL (65-115); Magnesium 2.1 mg/dL (1.7-2.3); NT Pro B Type Natriuretic Pept 1189 pg/mL (0-125); Osmolality Calculated 290 mOsm/kg (285-295); Sodium 139 mmol/L (136-145)
[2022-11-28 11:25] LABS: Anion Gap 11.3 (5-19); Potassium 4.3 mmol/L (3.5-5.1)
--- NOTE | 2022-11-28 12:35 | PC.NURSE ---
Pt refuses to wear telemetry and life vest. Nurse educated patient on importance of wearing both and patient refused.
--- NOTE | 2022-11-28 13:55 | PC.NURSE ---
This nurse has offered to remove pulliam on patient twice and refusal both times. Pt stated, you can remove it right before I leave .
--- NOTE | 2022-11-28 20:33 | PC.NURSE ---
Dr. Sloan notified of / blood pressure. ordered to hold metoprolol dose [id number] and recheck in 20 min
[2022-11-29] VITALS (15 sets, daily range): BP systolic 91–120; BP diastolic 40–79; PULSE 80–100; RESP 15–22; TEMP 36.5–37.1; O2SAT 89–99
[2022-11-29] MEDS: ipratropium-albuterol 3 mL Neb INHALATION ×4 (03:07→19:42)
[2022-11-29] MEDS: cefTRIAXone 1,000 MG in sodium chloride 0.9% (plus) 50 ML 100 MG IV (05:10)
--- NOTE | 2022-11-29 05:14 | PC.NURSE ---
Patient refusing to wear life vest, stating I don't want it to shock me . Nurse educated patient about the importance of wearing it and patient stated There's nothing wrong with my heart.
[2022-11-29 05:28] LABS: Basophils # 0.1 10^3/uL (0.0-0.1); Basophils % 1.5 %; Eosinophils # 0.2 10^3/uL (0.0-0.8); Eosinophils % 2.6 %; Hematocrit 47.7 % (42.0-52.0); Hemoglobin 15.3 g/dL (11.7-16.6); Lymphocytes # 2.1 10^3/uL (0.8-4.8); Lymphocytes % 30.2 %; Mean Corpuscular HGB Conc 32.1 g/dL (30.0-36.0); Mean Corpuscular Hemoglobin 30.4 pg (28.0-34.0); Mean Corpuscular Volume 94.8 fl (80-94); Mean Platelet Volume 12.2 fL (7.4-10.4); Monocytes # 1.1 10^3/uL (0.2-0.9); Monocytes % 16.6 %; Neutrophils # 3.36 10^3/uL (1.8-7.7); Neutrophils % 48.8 %; Nucleated Red Blood Cells % 0 %; Platelet Count 211 10^3/cmm (130-400); Red Blood Count 5.03 10^6/uL (4.1-5.3); Red Cell Distribution Width 14.3 % (12.1-15.1); White Blood Count 6.9 10^3/uL (4.0-10.0)
[2022-11-29 05:55] LABS: Alanine Aminotransferase 14 U/L (0-41); Albumin Level 2.7 g/dL (3.5-5.2); Alkaline Phosphatase 65 U/L (40-130); Anion Gap 10.9 (5-19); Aspartate Amino Transferase 14 U/L (0-40); Blood Urea Nitrogen 12 mg/dL (6-20); Calcium 8.4 mg/dL (8.5-10.5); Carbon Dioxide 24 mmol/L (22-29); Chloride 106 mmol/L (98-107); Globulin 2.7 g/dL (1.3-4.6); Glomerular Filtration Rate 117.1 mL/min (90-130); Glucose 106 mg/dL (65-115); Magnesium 2.2 mg/dL (1.7-2.3); NT Pro B Type Natriuretic Pept 1060 pg/mL (0-125); Osmolality Calculated 282 mOsm/kg (285-295); Phosphorus 3.2 mg/dL (2.5-4.5); Potassium 4.9 mmol/L (3.5-5.1); Sodium 136 mmol/L (136-145); Total Bilirubin 0.4 mg/dL (0.15-1.2); Total Protein 5.4 g/dL (6.6-8.7)
[2022-11-29] MEDS: apixaban 5 mg Tablet PO ×2 (09:50→17:58)
[2022-11-29] MEDS: tamsulosin 0.4 mg Capsule PO (09:50)
[2022-11-29] MEDS: amiodarone 200 mg Tablet PO (09:50)
[2022-11-29] MEDS: metoprolol tartrate 25 mg Tablet 6.25 MG PO ×2 (09:50→22:40)
[2022-11-29] MEDS: sacubitril/valsartan 24-26 mg Tablet 0.5 EACH PO ×2 (09:50→17:58)
--- NOTE | 2022-11-29 11:42 | PM.PN ---
Subjective Subjective: Patient was seen this morning, he denies any lightheadedness, no dizziness, his BiPAP, he allowed us to do blood work this morning, his blood pressures were soft throughout the night, his Entresto and metoprolol were held, but he was relatively asymptomatic Vitals/I&O/Wt Last Vital Signs Temp 98.2 F 11/29/22 07:52 Pulse 93 11/29/22 07:52 Resp 16 11/29/22 07:52 BP 100/40 11/29/22 07:52 Pulse Ox 94 11/29/22 07:52 O2 Del Method 11/29/22 07:52 O2 Flow Rate 4 11/27/22 08:00 FiO2 25 11/29/22 07:28 11/28/22 11/29/22 11/29/22 22:59 06:59 14:59 Intake Total 480 / 960 50 / 1010 480 / 480 Output Total 1900 / 1900 800 / 2700 Balance -1420 / -940 -750 / -1690 480 / 480 Weight last 48 hrs Weight 77.224 kg Weight 74.208 kg Physical Exam Const: COMMON NORMALS: no acute distress and patient oriented x3 Resp: COMMON NORMALS: normal respiratory effort, No retractions, No use of accessory muscles and clear to auscultation bilaterally AUSCULTATION: clear to auscultation bilaterally Cardio: COMMON NORMALS: regular rate, regular rhythm, S1 normal heart sound present and S2 normal heart sound present RATE: regular rate RHYTHM: regular rhythm HEART SOUNDS: S1 normal heart sound present and S2 normal heart sound present GI: COMMON NORMALS: Normal to inspection, nondistended, normoactive bowel sounds present and non-tender Extremity: COMMON NORMALS: no pedal edema Neuro: COMMON NORMALS: patient oriented x3 Psych: COMMON NORMALS: mental status grossly normal Urinary Catheter Management: Sutherland: Cath Placed During This Visit: yes Reason for Continuing Indwelling Catheter: Other Urinary Catheter Date of Insertion: 11/25/22 Urinary Catheter Time of Insertion: 02:46 Data 11/29/22 05:10 11/29/22 05:10 Micro: Microbiology 11/25/22 09:40 Urine Culture - Final Urine,Clean Catch A&P Assessment and plan (1) Goals of care, counseling/discussion: (2) Respiratory failure: (3) Acute encephalopathy: (4) Acute decompensated heart failure: (5) Cardiomyopathy: (6) COPD (chronic obstructive pulmonary disease): (7) Respiratory distress: (8) Bilateral pleural effusion: Plan Noncompliant patient, endorses to use of methamphetamine, has not taken his medications for quite some time has been living with his friends presented with worsening of shortness of breath Acute systolic CHF exacerbation Reduced EF EF has reduced from 33% to 15% now Advised of compliance with LifeVest, morbidity and mortality associated with noncompliance Looks euvolemic today He is -13 L Lasix currently on hold Continue metoprolol 6.25 twice daily Continue Entresto, low-dose twice daily Blood pressures are soft we will monitor quite closely, advised to ambulate Monitor creatinine, monitor electrolytes Metabolic encephalopathy related to methamphetamine abuse: Resolved Methamphetamine/recreational drug abuse He is at high risk for mortality morbidity because of his noncompliant behavior and use of drugs Methamphetamine can severely increase afterload and affect his cardiac rhythm It is cardiotoxic as well Hypoxic hypercapnic respiratory failure: Requiring BiPAP overnight Off BiPAP he requires 3 to 4 L of oxygen Cystitis: He is on ceftriaxone no active sign of sepsis Gall bladder distention, no active signs of infection or related to congestive heart failure Full code Cardiac diet A-fib history continue Eliquis and amiodarone Hypothyroid: Continue levothyroxine Attestations Medical Necessity Statement*: Requires hospitalization due to heart failure, nonischemic cardiomyopathy, low blood pressures Diagnoses Goals of care, counseling/discussion Z71.89 Respiratory failure J96.90 Acute encephalopathy G93.40 Acute decompensated heart failure I50.9 Cardiomyopathy I42.9 COPD (chronic obstructive pulmonary disease) J44.9 Respiratory distress R06.03 Bilateral pleural effusion J90
[2022-11-30] VITALS (12 sets, daily range): BP systolic 82–100; BP diastolic 52–68; PULSE 80–100; RESP 15–20; TEMP 36.4–37; O2SAT 90–98
[2022-11-30] MEDS: ipratropium-albuterol 3 mL Neb INHALATION ×2 (03:00→08:50)
[2022-11-30] MEDS: cefTRIAXone 1,000 MG in sodium chloride 0.9% (plus) 50 ML 100 MG IV (04:11)
--- NOTE | 2022-11-30 05:20 | PC.NURSE ---
Patient refused morning lab draw. Dr. Sloan notified.
[2022-11-30] MEDS: apixaban 5 mg Tablet PO ×2 (08:57→17:53)
[2022-11-30] MEDS: tamsulosin 0.4 mg Capsule PO (08:57)
[2022-11-30] MEDS: sacubitril/valsartan 24-26 mg Tablet 0.5 EACH PO ×2 (08:57→17:53)
[2022-11-30] MEDS: amiodarone 200 mg Tablet PO (08:57)
--- NOTE | 2022-11-30 10:30 | PC.NURSE ---
Sutherland Catheter removed at this time. Patient tolerated well.
--- NOTE | 2022-11-30 11:12 | PM.DCS ---
Discharge Providers Date of Admission: 11/25/22 05:35 Date of Discharge: November 30, 2022 Attending Provider at Admission: Kiran Sloan Attending Provider at Discharge: Carl Cortez MD Diagnoses at Discharge Discharge Diagnosis (1) Goals of care, counseling/discussion: Status: Acute (2) Respiratory failure: Status: Acute (3) Acute encephalopathy: Status: Acute (4) Acute decompensated heart failure: Status: Acute (5) Cardiomyopathy: Status: Acute (6) COPD (chronic obstructive pulmonary disease): Status: Acute (7) Respiratory distress: Status: Acute (8) Bilateral pleural effusion: Status: Acute Reason for Visit Reason for Visit: difficulty breathing Hospital Course Hospital Course 57-year-old gentleman with history of nonischemic cardiomyopathy, previously EF noted 33% during admission with CHF back in June 2022, was referred for follow-up with cardiology, but I do not see that he had followed up, presented to ER with generalized weakness, shortness of breath, lethargy, reportedly had stopped taking his medications 3 weeks ago.? He is currently not staying at home, has been staying with his friends and states that his medications were left at home which is why he cannot take them.? Shortness of breath has been gradually progressive over the last week to 10 days.? He is lethargic, falls asleep easily, due to this history is difficult, mostly obtained from ER physician and documentation.? In ER he is found to have sinus tachycardia 108-111, tachypnea 22-29 on presentation, without leukocytosis, temperature not recorded but reported afebrile, requested to be confirmed, ABG 7.37/37.7/60.9/21.7.? D-dimer 1.74.? Baseline troponin 30.? NT proBNP 11,329.? TSH 9.16.? Influenza PCR and respiratory viral panel negative.? Urine tox screen positive for amphetamines. He reports that he still smokes.? He reports also intermittently uses amphetamine, last use was a few days ago.? States that he snorts, does not inject. Patient was admitted to [facility] due to acute systolic CHF exacerbation, nonischemic cardiomyopathy, with EF reduced to 15%, with repeated methamphetamine abuse, metabolic encephalopathy secondary to methamphetamine abuse, acute hypoxic respiratory failure secondary to systolic CHF exacerbation. Patient was admitted to [facility], placed on BiPAP therapy received diuretic therapy and overall clinically monitored. In terms of patient's systolic CHF exacerbation he overall clinically improved, diuresed over 14 L, ambulating without significant symptomatology, and patient's edema has significantly improved. Patient will be discharged on Lasix therapy with potassium replacement therapy to be started on Wednesday. Follow-up with primary care provider and follow-up with cardiology for repeat blood work, check creatinine, check potassium. In terms of patient's diminished ejection fraction to 15%, likely secondary to methamphetamine abuse, however cannot rule out underlying cardiac etiology, patient had a coronary angiography in July 2022, was found to have moderate to severe distal left circumflex artery stenosis, otherwise nonobstructive CAD. He was supposed to follow-up with cardiology, but never followed up. Patient was fitted for LifeVest during his hospitalization, at times was noncompliant, strongly advised of its compliance and morbidity or mortality associated with noncompliance. Will be discharged with LifeVest with close follow-up with cardiology as outpatient. In terms of patient's heart failure and diminished ejection fraction, he was managed with Entresto, and metoprolol and clinically monitored for the next 48 hours. Patient continued to do well, ambulating without significant symptomatology, no chest pain complaints, refused blood work on discharge understanding morbidity and mortality associated. Patient will be discharged on low-dose Entresto with low-dose metoprolol with close follow-up with cardiology as outpatient. I have gone over in detail with patient all his medications, his home severe heart failure, I have implored him to not any illicit substances including methamphetamine as this could be associate with significant morbidity and mortality. He voiced understanding, oxygen is answered, agreed to proceed. Patient is blood pressures were soft during his hospitalization, denied any lightheadedness, no dizziness, likely secondary to his diminished ejection fraction of 15%. Patient was advised if he were to have any lightheaded or dizziness to go to emergency room Physical Exam Const: COMMON NORMALS: no acute distress and patient oriented x3 Resp: COMMON NORMALS: normal respiratory effort, No retractions, No use of accessory muscles and clear to auscultation bilaterally AUSCULTATION: clear to auscultation bilaterally Cardio: COMMON NORMALS: regular rate, regular rhythm, S1 normal heart sound present and S2 normal heart sound present RATE: regular rate RHYTHM: regular rhythm HEART SOUNDS: S1 normal heart sound present and S2 normal heart sound present GI: COMMON NORMALS: Normal to inspection, nondistended, normoactive bowel sounds present and non-tender Extremity: COMMON NORMALS: no pedal edema Neuro: COMMON NORMALS: patient oriented x3 Psych: COMMON NORMALS: mental status grossly normal Urinary Catheter Management: Sutherland: Cath Placed During This Visit: yes Reason for Continuing Indwelling Catheter: Other Urinary Catheter Date of Insertion: 11/25/22 Urinary Catheter Time of Insertion: 02:46 Discharge Data Studies Completed and Pending Completed Studies During Hospitalization Category Date Time Status CT head wo con* [id number] Routine Cat Scan 11/25/22 06:[address] abdomen pelvis [CT angio chest w abd pel w Cat Scan 11/25/22 03:23 Completed con] Stat XR chest 1V portable [id number] Stat Exams 11/25/22 02:00 [place] [id number] Routine Ultrasound 11/25/22 06:25 Completed CV. echo complete* [id number] Routine Ultrasound 11/25/22 06:10 Completed US gall bladder [id number] Stat Ultrasound 11/25/22 05:40 Completed Pending at discharge Category Date Time Status Complete Blood Count w/Auto AM LABS Lab 11/30/22 04:00 Ordered Comprehensive Metabolic Panel AM LABS Lab 11/30/22 04:00 Ordered Magnesium AM LABS Lab 11/30/22 04:00 Ordered NT Pro B Type Natriuretic Pept QAM Lab 11/30/22 06:00 Ordered Phosphorus AM LABS Lab 11/30/22 04:00 Ordered Radiology Impressions Chest X-Ray 11/25/22 02:00 IMPRESSION: 1. Findings likely representing CHF/pulmonary edema, see above discussion. 2. Other findings discussed above. Chest/Abdomen/Pelvis CT 11/25/22 03:23 IMPRESSION: 1. No CTA evidence of pulmonary embolism or thoracic aortic aneurysm. 2. Medium-sized right and small left pleural effusions with associated atelectasis. Suspected mild pulmonary vascular congestion/pulmonary edema. 3. [id number] cardiomegaly. 4. Unchanged severe T3 vertebral body compression fracture. IMPRESSION: 1. Sutherland catheter in bladder. Moderate bladder wall thickening seen, suspicious for cystitis. Recommend correlation with urinalysis findings. 2. Mildly distended gallbladder. Suspected mild gallbladder sludge. Mild gallbladder wall prominence. Sonography may be performed for complete assessment. 3. Some nonspecific mildly distended loops of small bowel in the abdomen. 4. Other chronic findings, as noted above. COMMENTS: Consistent with the [employer]'s Incidental Findings Committee white paper (J Am Ashvin Radiol 2018): Any incidental renal lesion less than 1 cm or classified as too small to characterize, or any incidental cystic renal lesion characterized as simple-appearing, is likely benign. No follow-up imaging is recommended for these lesions per consensus recommendations based on imaging criteria. Gallbladder Ultrasound 11/25/22 05:40 IMPRESSION: 1. Abnormal gallbladder. Diffuse gallbladder wall thickening with small amount of pericholecystic fluid. No gallstones identified. Acalculous cholecystitis versus abnormal gallbladder related to hepatocellular disease. 2. No bile duct dilatation. 3. Nonvisualization of the pancreas. 4. Small amount of ascites and small RIGHT pleural effusion. Head CT 11/25/22 06:10 IMPRESSION: 1. No acute intracranial hemorrhage or edema. 2. Mild atrophy and small vessel ischemic disease with small remote bilateral basal ganglia lacunar infarcts. Laboratory Results WBC 6.9 10^3/uL (4.0-10.0) 11/29/22 05:10 RBC 5.03 10^6/uL (4.1-5.3) 11/29/22 05:10 Hgb 15.3 g/dL (11.7-16.6) 11/29/22 05:10 Hct 47.7 % (42.0-52.0) 11/29/22 05:10 MCV 94.8 fl (80-94) H 11/29/22 05:10 MCH 30.4 pg (28.0-34.0) 11/29/22 05:10 MCHC 32.1 g/dL (30.0-36.0) 11/29/22 05:10 RDW 14.3 % (12.1-15.1) 11/29/22 05:10 Plt Count 211 10^3/cmm (130-400) 11/29/22 05:10 MPV 12.2 fL (7.4-10.4) H 11/29/22 05:10 Neut % (Auto) 48.8 % 11/29/22 05:10 Lymph % (Auto) 30.2 % 11/29/22 05:10 Miller % (Auto) 16.6 % 11/29/22 05:10 Eos % (Auto) 2.6 % 11/29/22 05:10 Baso % (Auto) 1.5 % 11/29/22 05:10 Neut # (Auto) 3.36 10^3/uL (1.8-7.7) 11/29/22 05:10 Lymph # (Auto) 2.1 10^3/uL (0.8-4.8) 11/29/22 05:10 Miller # (Auto) 1.1 10^3/uL (0.2-0.9) H 11/29/22 05:10 Eos # (Auto) 0.2 10^3/uL (0.0-0.8) 11/29/22 05:10 Baso # (Auto) 0.1 10^3/uL (0.0-0.1) 11/29/22 05:10 Nucleated RBC % (auto) 0 % 11/29/22 05:10 Nucleated RBCs # 0.0 /100WBC 11/29/22 05:10 D-Dimer 1.74 ug/mIFEU (0-0.59) H 11/25/22 02:20 Specimen Type Arterial 11/25/22 02:42 Sample Site Radial, right 11/25/22 02:42 ABG pH 7.37 (7.35-7.45) 11/25/22 02:42 ABG pCO2 37.7 mmHg (35-45) 11/25/22 02:42 ABG pO2 60.9 mmHg (80.0-100.0) L 11/25/22 02:42 ABG HCO3 21.7 mmol/L (22-26) L 11/25/22 02:42 ABG Base Excess -3.1 mmol/L (-2.0-2.0) L 11/25/22 02:42 Parker Test Pos 11/25/22 02:42 Hematocrit 49.3 % (42-52) 11/25/22 02:42 Hgb O2 Saturation 88.3 % (95-100) L 11/25/22 02:42 Carboxyhemoglobin 3.0 %THgb (0.4-20.1) 11/25/22 02:42 Methemoglobin 0.5 % (0.4-1.5) 11/25/22 02:42 Total Hemoglobin 16.1 g/dL (14-18) 11/25/22 02:42 O2 Delivery Device None 11/25/22 02:42 Supervisor Tumbling And Rolling ID Sariah 11/25/22 02:42 Sodium 136 mmol/L (136-145) 11/29/22 05:10 Potassium 4.9 mmol/L (3.5-5.1) 11/29/22 05:10 Chloride 106 mmol/L (98-107) 11/29/22 05:10 Carbon Dioxide 24 mmol/L (22-29) 11/29/22 05:10 Anion Gap 10.9 (5-19) 11/29/22 05:10 BUN 12 mg/dL (6-20) 11/29/22 05:10 Creatinine 0.7 mg/dL (0.7-1.2) 11/29/22 05:10 GFR Calculation 117.1 mL/min (90-130) 11/29/22 05:10 Glucose 106 mg/dL (65-115) 11/29/22 05:10 Calculated Osmolality 282 mOsm/kg (285-295) L 11/29/22 05:10 Lactic Acid 2.0 mmol/L (0.5-2.2) 11/25/22 02:20 Calcium 8.4 mg/dL (8.5-10.5) L 11/29/22 05:10 Phosphorus 3.2 mg/dL (2.5-4.5) 11/29/22 05:10 Magnesium 2.2 mg/dL (1.7-2.3) 11/29/22 05:10 Total Bilirubin 0.4 mg/dL (0.15-1.2) 11/29/22 05:10 AST 14 U/L (0-40) 11/29/22 05:10 ALT 14 U/L (0-41) 11/29/22 05:10 Alkaline Phosphatase 65 U/L (40-130) 11/29/22 05:10 Troponin T Baseline 30 ng/L (0-15) H 11/25/22 02:20 Troponin T 120 Minute 26.48 ng/L (0-15) H 11/25/22 05:11 Delta Troponin T -3.52 ABS# (0-10) L 11/25/22 05:11 NT-Pro-B Natriuret Pep 1060 pg/mL (0-125) H 11/29/22 05:10 Total Protein 5.4 g/dL (6.6-8.7) L 11/29/22 05:10 Albumin 2.7 g/dL (3.5-5.2) L 11/29/22 05:10 Globulin 2.7 g/dL (1.3-4.6) 11/29/22 05:10 TSH 9.16 uIU/mL (0.27-4.20) H 11/25/22 02:20 Free T4 1.06 ng/dL (0.82-1.77) 11/25/22 03:20 Urine Color Yellow (Yellow) 11/25/22 09:40 Urine Appearance Bloody (CLEAR) A 11/25/22 09:40 Urine pH 5 (5-7) 11/25/22 09:40 Ur Specific [place] 1.010 (1.005-1.030) 11/25/22 09:40 Urine Protein 2+ (Negative) H 11/25/22 09:40 Urine Glucose (UA) Norm (Normal) 11/25/22 09:40 Urine Ketones Negative (Negative) 11/25/22 09:40 Urine Blood 3+ (Negative) H 11/25/22 09:40 Urine Nitrate Negative (Negative) 11/25/22 09:40 Urine Bilirubin Neg (Negative) 11/25/22 09:40 Urine Urobilinogen Norm mg/dL (Negative) 11/25/22 09:40 Ur Leukocyte Esterase Trace (Negative) H 11/25/22 09:40 Urine RBC 80-100 /hpf (0-2) H 11/25/22 09:40 Urine WBC 10-15 /hpf (0-5) H 11/25/22 09:40 Ur Squamous Epith Cells 0-4 /hpf (0-5) H 11/25/22 09:40 Amorphous Sediment Not Reportable 11/25/22 09:40 Urine Bacteria Trace /hpf (NONE) 11/25/22 09:40 Nasal Influ A H1 2008 PCR Not detected (NOT DETECT) 11/25/22 02:20 Urine Opiates Screen Negative ng/mL (Negative) 11/25/22 04:45 Ur Barbiturates Screen Negative ng/mL (Negative) 11/25/22 04:45 Ur Phencyclidine Scrn Negative ng/mL (Negative) 11/25/22 04:45 Ur Amphetamines Screen Positive ng/mL (Negative) H 11/25/22 04:45 U Benzodiazepines Scrn Negative ng/mL (Negative) 11/25/22 04:45 Urine Cocaine Screen Negative ng/mL (Negative) 11/25/22 04:45 U Marijuana (THC) Screen Negative ng/mL (Negative) 11/25/22 04:45 Adenovirus (PCR) Not detected (NOT DETECT) 11/25/22 02:20 C. pneumoniae DNA (PCR) Not detected (NOT DETECT) 11/25/22 02:20 Coronavirus 229E (PCR) Not detected (NOT DETECT) 11/25/22 02:20 Human Metapneumovir PCR Not detected (NOT DETECT) 11/25/22 02:20 Influenza A (H1) PCR Not detected (NOT DETECT) 11/25/22 02:20 Influenza A (H3) PCR Not detected (NOT DETECT) 11/25/22 02:20 Influenza Type A (PCR) Not detected (NOT DETECT) 11/25/22 02:20 Influenza Type B (PCR) Not detected (NOT DETECT) 11/25/22 02:20 M. pneumoniae (PCR) Not detected (NOT DETECT) 11/25/22 02:20 Parainfluenza 1 (PCR) Not detected (NOT DETECT) 11/25/22 02:20 Parainfluenza 2 (PCR) Not detected (NOT DETECT) 11/25/22 02:20 Parainfluenza 3 (PCR) Not detected (NOT DETECT) 11/25/22 02:20 Parainfluenza 4 (PCR) Not detected (NOT DETECT) 11/25/22 02:20 RSV Type A (PCR) Not detected (NOT DETECT) 11/25/22 02:20 RSV Type B (PCR) Not detected (NOT DETECT) 11/25/22 02:20 Entero/Rhino (PCR) Not detected (NOT DETECT) 11/25/22 02:20 SARS-CoV-2 (PCR) Not detected (NOT DETECT) 11/25/22 02:20 Vitals Last Vital Signs Temp 98.1 F 11/30/22 08:00 Pulse 87 11/30/22 08:59 Resp 16 11/30/22 08:50 BP 82/52 11/30/22 10:40 Pulse Ox 96 11/30/22 08:50 O2 Del Method 11/30/22 08:50 O2 Flow Rate 4 11/29/22 19:42 FiO2 25 11/30/22 03:00 Discharge Plan Discharge Patient Disposition: Home Condition: Stable Prescriptions: New metoprolol tartrate 25 mg Tablet 6.25 mg PO Q12H 30 Days Qty: 30 0RF potassium chloride [Klor-Con M20] 20 mEq tablet,ER particles/crystals 20 meq PO DAILY 30 Days Qty: 30 0RF Rx Instructions: donot start until 12/02/2022 Entresto 24-26 mg Tablet 0.5 tab PO BID 30 Days Qty: 30 0RF furosemide [Lasix] 40 mg tablet 40 mg PO DAILY 30 Days Qty: 30 0RF Rx Instructions: donot start until 12/02/2022 Continued albuterol sulfate 90 mcg/actuation HFA aerosol inhaler 2 inh inhalation Q8H PRN (Reason: shortness of breath or wheezing) Qty: 8.5 3RF tamsulosin 0.4 mg capsule 0.4 mg PO DAILY 30 Days Qty: 30 0RF Eliquis 5 mg tablet 5 mg PO BID 30 Days Qty: 30 3RF amiodarone 200 mg tablet 200 mg PO DAILY 30 Days Qty: 30 0RF Discontinued Lasix 40 mg tablet See Rx Instructions .ROUTE .COMPLEX Rx Instructions: Take Lasix 60 mg twice a day for 7 days and then start taking 60 mg daily please take potassium only with Lasix digoxin 250 mcg (0.25 mg) Tablet 250 mcg PO DAILY Qty: 30 3RF metolazone 2.5 mg tablet 2.5 mg PO DAILY Qty: 30 0RF potassium chloride 10 mEq tablet extended release 10 meq PO BID Qty: 60 2RF Discharge Orders: Discharge Order (Routine); Ordered 11/30/22 Ordered By: Carl Cortez Referrals: Zakia Carranza FNP [Nurse Practitioner] - 1-3 days Discharge Diet: Cardiac Discharge Activity: Resume usual activity Patient Instructions: Methamphetamine (By mouth), Apixaban (By mouth) (Eliquis), Sacubitril/Valsartan (By mouth), Heart Failure (DC), Opioid Safety Activity Restrictions/Additional Instructions: - Please follow-up with cardiology in the next few days -For your heart failure please stop using methamphetamines -For your heart failure try to limit your fluid intake between 1.5 to 2 L of fluid a day -Please start taking Lasix with potassium on Wednesday -Please follow-up with your primary care provider with repeat blood work on Wednesday -I have discharged you on blood thinners Eliquis, please monitor for bloody or black stools if so go to the emergency room -I have discharged you on Entresto for your heart failure this needs to be monitored very closely, please follow-up with cardiology -I have discharged on metoprolol, this needs to monitor very closely please follow-up with cardiology -If you feel lightheaded or dizzy please go to the emergency room -Please use LifeVest as prescribed, you have a high risk of if its not used as prescribed -You have a high risk of if you continue to use illicit drugs Discharge Attestations Time Spent in Discharge Care*: greater than 30 min Quality Metrics Clinical Quality Measures [ No reported AMI, CVA or VTE this stay] Coding Level of Care Code 89455 Total time (in minutes) for Discharge: 50 Diagnoses Goals of care, counseling/discussion Z71.89 Respiratory failure J96.90 Acute encephalopathy G93.40 Acute decompensated heart failure I50.9 Cardiomyopathy I42.9 COPD (chronic obstructive pulmonary disease) J44.9 Respiratory distress R06.03 Bilateral pleural effusion J90
--- NOTE | 2022-11-30 14:14 | P.PN_ITS ---
Subjective Subjective: Patient was seen this morning, he feels better, he is ambulating well, plans for discharge today, Sutherland catheter removed, however patient does change his mind, he wants to go to a senior living Vitals/I&O/Wt Last Vital Signs Temp 98.0 F 11/30/22 12:14 Pulse 100 11/30/22 12:14 Resp 16 11/30/22 12:14 BP 91/62 11/30/22 12:14 Pulse Ox 97 11/30/22 12:14 O2 Del Method 11/30/22 12:14 O2 Flow Rate 3 11/30/22 08:15 FiO2 25 11/30/22 03:00 11/29/22 11/30/22 11/30/22 22:59 06:59 14:59 Intake Total 960 / 1800 530 / 2330 840 / 840 Output Total 2850 / 2850 700 / 3550 Balance -1890 / -1050 -170 / -1220 840 / 840 Weight last 48 hrs Weight 77.383 kg Weight 77.224 kg Physical Exam Const: COMMON NORMALS: no acute distress and patient oriented x3 Resp: COMMON NORMALS: normal respiratory effort, No retractions, No use of accessory muscles and clear to auscultation bilaterally AUSCULTATION: clear to auscultation bilaterally Cardio: COMMON NORMALS: regular rate, regular rhythm, S1 normal heart sound present and S2 normal heart sound present RATE: regular rate RHYTHM: regular rhythm HEART SOUNDS: S1 normal heart sound present and S2 normal heart sound present GI: COMMON NORMALS: Normal to inspection, nondistended, normoactive bowel sounds present and non-tender Extremity: COMMON NORMALS: no pedal edema Neuro: COMMON NORMALS: patient oriented x3 Psych: COMMON NORMALS: mental status grossly normal Urinary Catheter Management: Sutherland: Cath Placed During This Visit: yes, but has since been removed by the nurse Reason for Continuing Indwelling Catheter: Other Urinary Catheter Date of Insertion: 11/25/22 Urinary Catheter Time of Insertion: 02:46 Date Urinary Catheter Removed: 11/30/22 Time Urinary Catheter Discontinued: 10:30 Data 11/29/22 05:10 11/29/22 05:10 A&P Assessment and plan (1) Goals of care, counseling/discussion: (2) Respiratory failure: (3) Acute encephalopathy: (4) Acute decompensated heart failure: (5) Cardiomyopathy: (6) COPD (chronic obstructive pulmonary disease): (7) Respiratory distress: (8) Bilateral pleural effusion: Plan Noncompliant patient, endorses to use of methamphetamine, has not taken his medications for quite some time has been living with his friends presented with worsening of shortness of breath Acute systolic CHF exacerbation Reduced EF EF has reduced from 33% to 15% now Advised of compliance with LifeVest, morbidity and mortality associated with noncompliance Looks euvolemic today He is -13 L Lasix currently on hold Continue metoprolol 6.25 twice daily Continue Entresto, low-dose twice daily Blood pressures are soft we will monitor quite closely, advised to ambulate Monitor creatinine, monitor electrolytes Metabolic encephalopathy related to methamphetamine abuse: Resolved Methamphetamine/recreational drug abuse He is at high risk for mortality morbidity because of his noncompliant behavior and use of drugs Methamphetamine can severely increase afterload and affect his cardiac rhythm It is cardiotoxic as well Hypoxic hypercapnic respiratory failure: Requiring BiPAP overnight Off BiPAP he requires 3 to 4 L of oxygen Cystitis: stopped Gall bladder distention, no active signs of infection or related to congestive heart failure Full code Cardiac diet A-fib history continue Eliquis and amiodarone Hypothyroid: Continue levothyroxine Attestations Medical Necessity Statement*: Patient requires hospitalization for CHF exacerbation Diagnoses Goals of care, counseling/discussion Z71.89 Respiratory failure J96.90 Acute encephalopathy G93.40 Acute decompensated heart failure I50.9 Cardiomyopathy I42.9 COPD (chronic obstructive pulmonary disease) J44.9 Respiratory distress R06.03 Bilateral pleural effusion J90
--- NOTE | 2022-11-30 16:57 | PC.NURSE ---
Patient stated earlier that he wanted to go a prison now because there are to many people living at the house he lives in. Patient was denied by [facility] and updated at this time. Patient states, I will go back to my daughters then but I do not know when she can pick me up just sometime this evening.
--- NOTE | 2022-11-30 19:29 | PC.NURSE ---
Patient's medications were sent to [facility] instead of [facility] the patient requested. Patient will call back tomorrow if he is unable to get [facility] to transfer the medications to [facility]. Discharge instructions reviewed with patient including medication changes and follow up appointments patient verbalized understanding. Patient ambulated from the med-surge floor with a steady gait. No obvious signs of distress noted
== END 2022-11-30 19:00 | disposition home or self-care (01) | DRG 291 ==
LOC: ER 05:17 → ICU 05:36 → MEDSURG 16:10
PROVIDERS: Admitting Provider Internal Medicine; Emergency Provider Emergency Medicine; Visit Provider Family Medicine
DX: I11.0 Hypertensive heart disease with heart failure (principal); G92.8 Other toxic encephalopathy; I50.23 Acute on chronic systolic (congestive) heart failure; J96.02 Acute respiratory failure with hypercapnia; J96.01 Acute respiratory failure with hypoxia; J44.1 Chronic obstructive pulmonary disease with (acute) exacerbation; I16.0 Hypertensive urgency; I42.8 Other cardiomyopathies; T43.651A Poisoning by methamphetamines accidental (unintentional), initial encounter; T50.916A Underdosing of multiple unspecified drugs, medicaments and biological substances, initial encounter; Z91.128 Patient's intentional underdosing of medication regimen for other reason; I48.91 Unspecified atrial fibrillation; G47.30 Sleep apnea, unspecified; F17.200 Nicotine dependence, unspecified, uncomplicated; N30.90 Cystitis, unspecified without hematuria; E03.9 Hypothyroidism, unspecified; K82.8 Other specified diseases of gallbladder; Z79.01 Long term (current) use of anticoagulants
CPT/HCPCS: 36415; 36600; 51702; 70450; 71045; 71275; 74177; 76705; 80048; 80053; 80306; 81001; 82805; 83605; 83735; 83880; 84100; 84439; 84443; 84484; 85025; 85378; 87086; 87486; 87581; 87633; 93005; 93306; 93970; 94640; 94660; 94664; 96365; 96375; 99285; J0696; J1940; J3490; Q9967

== ENCOUNTER → 2023-05-10 13:06 | Outpatient (BNVA) | payer OTHER, MEDICAID, SELFPAY | PROVIDERS: Visit Provider Podiatrist Foot & Ankle Surgery | DX: M19.071 Primary osteoarthritis, right ankle and foot; M19.072 Primary osteoarthritis, left ankle and foot; M76.821 Posterior tibial tendinitis, right leg; M76.822 Posterior tibial tendinitis, left leg; M21.41 Flat foot [pes planus] (acquired), right foot; M21.42 Flat foot [pes planus] (acquired), left foot; M21.6X1 Other acquired deformities of right foot; M21.6X2 Other acquired deformities of left foot; L84 Corns and callosities | CPT/HCPCS: 73630; 99204 ==